=== PATIENT | male | born 1935 | race Caucasian/White ===

== ENCOUNTER 2019-07-28 11:19 | Inpatient (IN) | payer MEDICARE, OTHER ==
--- NOTE | 2019-07-28 13:24 | RADIOLOGY REPORT (SQ) ---
EXAM DESCRIPTION: CHEST SINGLE VIEW COMPLETED DATE/TIME: 07/28/2019 12:55 pm REASON FOR STUDY: unwitnessed fall, confusion COMPARISON: None. EXAM PARAMETERS: NUMBER OF VIEWS: One view. TECHNIQUE: Single frontal radiographic view of the chest acquired. RADIATION DOSE: NA LIMITATIONS: None. FINDINGS: LUNGS AND PLEURA: No opacities, masses or pneumothorax. No pleural effusion. MEDIASTINUM AND HILAR STRUCTURES: No masses. Contour normal. HEART AND VASCULAR STRUCTURES: Heart normal in size. Normal vasculature. BONES: No acute findings. HARDWARE: None in the chest. OTHER: No other significant finding. IMPRESSION: NO ACUTE RADIOGRAPHIC FINDING IN THE CHEST. TECHNICAL DOCUMENTATION: JOB ID: [id number] [employer]- All Rights Reserved Reading location - IP/workstation name: [email or web address]
[2019-07-28 13:31] LABS: AMORPHOUS SEDIMENT,URINE TRACE /HPF; APPEARANCE,URINE CLOUDY; BILIRUBIN,URINE NEGATIVE (NEGATIVE); COLOR,URINE AMBER; GLUCOSE, URINE 50 mg/dL (NEGATIVE); KETONES,URINE TRACE mg/dL (NEGATIVE); PROTEIN,URINE 100 mg/dL (NEGATIVE); URINE SPECIFIC GRAVITY 1.024
--- NOTE | 2019-07-28 13:53 | ER Document Report ---
Entered by JOSE COCHRAN SCRIBE 07/28/19 1219 Acting as scribe for:CONSTANTINE FERGUSON IV, MD ED General - General Chief Complaint: Altered Mental Status Stated Complaint: FALL Time Seen by Provider: 07/28/19 12:12 Primary Care Provider: MATT CORDOVA MD [ACTIVE STAFF] - Follow up as needed Mode of Arrival: Medic Information source: Patient Notes: This 84 year old male patient presents to the emergency department today for complaints of being found down on the floor by the just prior to arrival. states the last time she saw him was last night. Patient states that it "happened this morning" but he does not appear to be the best historian. Patient complains of left sided abdominal pain which the reported as chronic, stating that he was recently diagnosed with IBS. states the patient has been vomiting for the last two days. Patient has no complaints other than the abdominal pain. TRAVEL OUTSIDE OF THE [place] IN LAST 30 DAYS: No - Related Data Allergies/Adverse Reactions: tramadol Allergy (Verified 07/28/19 12:05) Past Medical History - General Information source: Patient - Social History Smoking Status: Unknown if Ever Smoked Cigarette use (# per day): No Frequency of alcohol use: None Drug Abuse: None Lives with: Family Family History: Reviewed & Not Pertinent Patient has suicidal ideation: No Patient has homicidal ideation: No Review of Systems - Review of Systems Constitutional: See HPI EENT: No symptoms reported Cardiovascular: No symptoms reported Respiratory: No symptoms reported Gastrointestinal: See HPI, Abdominal pain, Vomiting Genitourinary: No symptoms reported Male Genitourinary: No symptoms reported Musculoskeletal: No symptoms reported Skin: No symptoms reported Hematologic/Lymphatic: No symptoms reported Neurological/Psychological: No symptoms reported -: Yes All other systems reviewed and negative Physical Exam - Vital signs Vitals: Resp Pulse Ox 21 H 92 07/28/19 11:33 07/28/19 11:33 - Notes Notes: Physical Exam: General: Alert, appears age appropriate.. HEENT: Normocephalic. Atraumatic. PERRL. Extraocular movements intact. Oropharynx clear. Neck: Supple. Non-tender. Respiratory: No respiratory distress. Clear and equal breath sounds bilaterally. Cardiovascular: Regular rate and rhythm. Abdominal: Left lower quadrant abdominal tenderness with palpation. No distension. Normal Bowel Sounds. Back: No gross abnormalities. Extremities: Moves all four extremities. Upper extremities: Normal inspection. Normal ROM. Lower extremities: Normal inspection. No edema. Normal ROM. Neurological: Confused Psychological: Normal affect. Normal Mood. Skin: Warm. Dry. Normal color. Course - Vital Signs Vital signs: Temp Pulse Resp BP Pulse Ox 99.1 F 88 25 H 169/72 H 97 07/28/19 11:58 07/28/19 11:58 07/28/19 19:01 07/28/19 19:01 07/28/19 19:01 - Laboratory Result Diagrams: 07/28/19 18:27 07/28/19 17:30 Laboratory results interpreted by me: 07/28/19 07/28/19 07/28/19 12:47 13:15 13:35 WBC 24.2 H RBC 6.86 H Hgb 19.7 H Hct 59.8 H RDW 15.3 H Lymph % (Auto) 5.3 L Absolute Neuts (auto) 21.0 H Absolute Monos (auto) 1.9 H Seg Neutrophils % 86.5 H Seg Neuts % (Manual) Lymphocytes % (Manual) Abs Neuts (Manual) Sodium Carbon Dioxide BUN Creatinine Est GFR ( Amer) Est GFR (MDRD) Non-Af Glucose POC Glucose 138 H Calcium Total Bilirubin Direct Bilirubin Urine Protein 100 H Urine Glucose (UA) 50 H Urine Ketones TRACE H Urine Blood MODERATE H Urine Urobilinogen 2.0 H 07/28/19 07/28/19 07/28/19 13:35 17:30 18:27 WBC 23.4 H RBC 6.25 H Hgb 17.9 H Hct 54.8 H RDW 15.5 H Lymph % (Auto) Absolute Neuts (auto) Absolute Monos (auto) Seg Neutrophils % Seg Neuts % (Manual) 90 H Lymphocytes % (Manual) 4 L Abs Neuts (Manual) 21.1 H Sodium 146.4 H 145.6 H Carbon Dioxide 31 H BUN 53 H 55 H Creatinine 2.23 H 1.94 H Est GFR ( Amer) 34 L 40 L Est GFR (MDRD) Non-Af 28 L 33 L Glucose 140 H 131 H POC Glucose Calcium 10.8 H Total Bilirubin 1.4 H Direct Bilirubin 0.6 H 0.5 H Urine Protein Urine Glucose (UA) Urine Ketones Urine Blood Urine Urobilinogen - EKG Interpretation by Me Additional EKG results interpreted by me: 07/28/19 20:34 EKG done on 07/28/2019 1302 hours was interpreted by this MD. Findings: Sinus rhythm, heart rate 82, nonspecific ST segments. - Consults DR. NILSA SALDAÑA Time consulted: 18:50 Reason for consultation: 07/28/19 18:55 AMS, HIGH BLOOD PRESSURE Consulted provider: will come to ER - Transfer of Care Care transferred to following provider: DR. LLANOS AT 2044 HOURS Procedures - Lumbar Puncture Lumbar puncture Time completed: 19:59 Consent obtained: Yes Lumbar puncture pre-procedure: Sterile PPE donned, Betadine prep applied Patient position: Lying Anesthetic type: 1% Lidocaine mL's of anesthetic: 5 Number of attempts: 4 - unsuccessful Complications: No Discharge - Discharge Clinical Impression: Altered mental status Qualifiers: Altered mental status type: unspecified Qualified Code(s): R41.82 - Altered mental status, unspecified Condition: Fair Disposition: ADMITTED OBSERVATION Admitting Provider: Dimitri (Patient Insurance Clerk) Referrals: MATT CORDOVA MD [ACTIVE STAFF] - Follow up as needed I personally performed the services described in the documentation, reviewed and edited the documentation which was dictated to the scribe in my presence, and it accurately records my words and actions.
[2019-07-28 14:05] LABS: ABSOLUTE BASOPHILS # (AUTO) 0.1 10^3/uL (0.0-0.2); ABSOLUTE LYMPHOCYTES (AUTO) 1.3 10^3/uL (0.5-4.7); ABSOLUTE MONOCYTES (AUTO) 1.9 10^3/uL (0.1-1.4); BASOPHILS % (AUTO) 0.2 % (0-2); HEMOGLOBIN 19.7 g/dL (13.5-17.0); LYMPHOCYTES % (AUTO) 5.3 % (13-45); MEAN CORPUSCULAR HEMOGLOBIN 28.8 pg (27.0-33.4); MEAN CORPUSCULAR VOLUME 87 fl (80-97); PLATELET COUNT 207 10^3/uL (150-450); RED BLOOD COUNT 6.86 10^6/uL (4.35-5.55); RED CELL DISTRIBUTION WIDTH 15.3 % (11.5-14.0); SEGMENTED NEUTROPHILS % (AUTO) 86.5 % (42-78); TOTAL CELLS COUNTED % (AUTO) 100 %; WHITE BLOOD COUNT 24.2 10^3/uL (4.0-10.5)
[2019-07-28 14:06] LABS: HEMATOCRIT 59.8 % (37.9-51.0)
[2019-07-28] MEDS ORDERED: NORMAL SALINE 500 ML IV ONE (14:14)
[2019-07-28 14:30] LABS: ALBUMIN 4.5 g/dL (3.5-5.0); ALKALINE PHOSPHATASE 90 U/L (38-126); ANION GAP 13 (5-19); ASPARTATE AMINO TRANSFERASE 36 U/L (17-59); BILIRUBIN,DIRECT 0.6 mg/dL (0.0-0.4); BILIRUBIN,TOTAL 1.4 mg/dL (0.2-1.3); BLOOD UREA NITROGEN 53 mg/dL (7-20); CALCIUM 10.8 mg/dL (8.4-10.2); CARBON DIOXIDE 31 mmol/L (22-30); CHLORIDE 102 mmol/L (98-107); CREATINE KINASE 134 U/L (55-170); GLUCOSE 140 mg/dL (75-110); POTASSIUM 3.6 mmol/L (3.6-5.0); TOTAL PROTEIN 7.4 g/dL (6.3-8.2)
--- NOTE | 2019-07-28 16:31 | RADIOLOGY REPORT (SQ) ---
EXAM DESCRIPTION: CT ABD/PELVIS NO ORAL OR IV COMPLETED DATE/TIME: 07/28/2019 4:17 pm REASON FOR STUDY: llq abdominal pain COMPARISON: None. TECHNIQUE: CT scan of the abdomen and pelvis performed without intravenous or oral contrast. Images reviewed with lung, soft tissue, and bone windows. Reconstructed coronal and sagittal MPR images revi ewed. All images stored on PACS. All CT scanners at this facility use dose modulation, iterative reconstruction, and/or weight based d osing when appropriate to reduce radiation dose to as low as reasonably achievable (ALARA). [facility]: Dose Right [facility]: CareDose [facility]: Dose Right [facility]: Teradose 4D [facility]: [employer] RADIATION DOSE: CT Rad equipment meets quality standard of care and radiation dose reduction techniq ues were employed. CTDIvol: 17.0 mGy. DLP: 946 mGy-cm.mGy. LIMITATIONS: Positioning. FINDINGS: LOWER CHEST: Trace pleural effusions. Cardiomegaly. Right pericardial cyst. NON-CONTRASTED LIVER, SPLEEN, ADRENALS: Evaluation limited by lack of IV contrast. Old granulomatous disease. No identified significant masses. PANCREAS: No masses. No peripancreatic inflammatory changes. GALLBLADDER: Gallstones. No inflammatory changes to suggest cholecystitis. RIGHT KIDNEY AND URETER: No suspicious masses. Assessment limited by lack of IV contrast. No signif icant calcifications. No hydronephrosis or hydroureter. LEFT KIDNEY AND URETER: No suspicious masses. Assessment limited by lack of IV contrast. 3 mm stone just superior to the ureterovesical junction. Mild hydronephrosis and perinephric stranding. AORTA AND RETROPERITONEUM: No aneurysm. No retroperitoneal masses or adenopathy. BOWEL AND PERITONEAL CAVITY: Sigmoid diverticulosis. No obvious masses or inflammatory changes. No f ree fluid. APPENDIX: Not visualized. PELVIS, BLADDER, AND ABDOMINAL WALL:No abnormal masses. No free fluid. Bladder normal. BONES: Nothing acute. OTHER: No other significant finding. IMPRESSION: 3 mm stone distal left ureter. Mild hydronephrosis. COMMENT: Quality ID # [id number]: Final reports with documentation of one or more dose reduction techniques (e.g., Automated exposure control, adjustment of the mA and/or kV according to patient size, use of iterative reconstruction technique) TECHNICAL DOCUMENTATION: JOB ID: [id number]- All Rights Reserved Reading location - IP[facility]workstation [email or web address]
--- NOTE | 2019-07-28 16:34 | RADIOLOGY REPORT (SQ) ---
EXAM DESCRIPTION: CT HEAD WITHOUT COMPLETED DATE/TIME: 07/28/2019 4:17 pm REASON FOR STUDY: unwitnessed fall, confusion COMPARISON: None. TECHNIQUE: Axial images acquired through the brain without intravenous contrast. Images reviewed wi th bone, brain and subdural windows. Additional sagittal and coronal reconstructions were generated. Images stored on PACS. All CT scanners at this facility use dose modulation, iterative reconstruction, and/or weight based d osing when appropriate to reduce radiation dose to as low as reasonably achievable (ALARA). [facility]: Dose Right [facility]: CareDose [facility]: Dose Right [facility]: Teradose 4D [facility]: Smart [employer] RADIATION DOSE: CT Rad equipment meets quality standard of care and radiation dose reduction techniq ues were employed. CTDIvol: 53.2 mGy. DLP: 1044 mGy-cm.mGy. LIMITATIONS: None. FINDINGS: VENTRICLES: Prominent. CEREBRUM: No masses. No hemorrhage. No midline shift. Areas of low density in the white matter mos t likely due to chronic micro-vascular ischemic change. No evidence for acute infarction. CEREBELLUM: No masses. No hemorrhage. No alteration of density. No evidence for acute infarction. EXTRAAXIAL SPACES: Age-related involutional change. No fluid collections. No masses. ORBITS AND GLOBE: No intra- or extraconal masses. Normal contour of globe without masses. CALVARIUM: No fracture. PARANASAL SINUSES: No fluid or mucosal thickening. SOFT TISSUES: No mass or hematoma. OTHER: No other significant finding. IMPRESSION: CHRONIC CHANGES OF ATROPHY AND MICROVASCULAR ISCHEMIA. NO ACUTE PROCESS. EVIDENCE OF ACUTE STROKE: NO. TECHNICAL DOCUMENTATION: JOB ID: [id number] Quality ID # [id number]: Final reports with documentation of one or more dose reduction techniques (e.g., Au tomated exposure control, adjustment of the mA and/or kV according to patient size, use of iterative reconstruction technique) 2010 [employer]- All Rights Reserved Reading location - IP/workstation name: [email or web address]
[2019-07-28] MEDS ORDERED: LABETALOL HCL INJ 20 MG/4 ML DISP.SYRIN IV ONE (17:12)
[2019-07-28] MEDS ORDERED: NORMAL SALINE 1000 ML 1,000 ML IV ONE (17:28)
[2019-07-28 18:36] LABS: ALKALINE PHOSPHATASE 77 U/L (38-126); ANION GAP 15 (5-19); ASPARTATE AMINO TRANSFERASE 32 U/L (17-59); BILIRUBIN,DIRECT 0.5 mg/dL (0.0-0.4); BILIRUBIN,TOTAL 1.2 mg/dL (0.2-1.3); BLOOD UREA NITROGEN 55 mg/dL (7-20); CALCIUM 10.2 mg/dL (8.4-10.2); CARBON DIOXIDE 27 mmol/L (22-30); CHLORIDE 104 mmol/L (98-107); GLUCOSE 131 mg/dL (75-110); POTASSIUM 4.2 mmol/L (3.6-5.0); TOTAL PROTEIN 6.5 g/dL (6.3-8.2)
[2019-07-28 18:38] LABS: HEMATOCRIT 54.8 % (37.9-51.0); HEMOGLOBIN 17.9 g/dL (13.5-17.0); MEAN CORPUSCULAR HEMOGLOBIN 28.7 pg (27.0-33.4); MEAN CORPUSCULAR HGB CONC 32.7 g/dL (32.0-36.0); MEAN CORPUSCULAR VOLUME 88 fl (80-97); PLATELET COUNT 158 10^3/uL (150-450); RED BLOOD COUNT 6.25 10^6/uL (4.35-5.55); RED CELL DISTRIBUTION WIDTH 15.5 % (11.5-14.0); WHITE BLOOD COUNT 23.4 10^3/uL (4.0-10.5)
[2019-07-28] MEDS ORDERED: VANCOMYCIN HCL INJ 1000 MG VIAL IV ONE (18:50)
[2019-07-28] MEDS ORDERED: CEFTRIAXONE INJ 1000 MG VIAL IV ONE (18:53)
[2019-07-28] MEDS ORDERED: NAFCILLIN SODIUM INJ 2 GM VIAL IV ONE (18:53)
[2019-07-28] MEDS ORDERED: ACYCLOVIR SODIUM INJ/PF 500 MG/10 ML SDV IV ONE (18:54)
[2019-07-28] MEDS ORDERED: LIDOCAINE 1% INJ-PF (10 MG/ML) 30 ML SDV INJ ONE (18:57)
[2019-07-28 18:58] LABS: ABSOLUTE LYMPHOCYTES# (MANUAL) 0.9 10^3/uL (0.5-4.7); ABSOLUTE MONOCYTES # (MANUAL) 1.4 10^3/uL (0.1-1.4); BASOPHILS % (MANUAL) 0 % (0-2); EOSINOPHILS % (MANUAL) 0 % (0-6); LYMPHOCYTES % (MANUAL) 4 % (13-45); MONOCYTES % (MANUAL) 6 % (3-13); SEGMENTED NEUTROPHILS % (MAN) 90 % (42-78); TOTAL CELLS COUNTED 100
[2019-07-28 18:59] LABS: ANISOCYTOSIS 1+; PLATELET COMMENT ADEQUATE; TEAR DROP CELLS SLIGHT
[2019-07-28] MEDS ORDERED: MIDAZOLAM 2 MG/2 ML INJ IV ONE (19:25)
[2019-07-28] MEDS ORDERED: MIDAZOLAM HCL INJ 5 MG/1 ML VIAL NASL ONE (19:28)
[2019-07-28] MEDS ORDERED: NICARDIPINE HCL RTU, ISO-OS 20 MG/200 ML RTUINJ IV PRN ×3 (20:28→22:33)
[2019-07-28] MEDS ORDERED: NAFCILLIN SODIUM 2 GM in DEXTROSE 5%-WATER 100 ML IV ONE (21:00)
[2019-07-28] MEDS ORDERED: 1/2 NORMAL SALINE 1,000 ML IV PRN (22:03)
[2019-07-29] MEDS ORDERED: NICARDIPINE HCL RTU, ISO-OS 20 MG/200 ML RTUINJ IV PRN (00:53)
[2019-07-29 03:30] LABS: HEMOGLOBIN 18.9 g/dL (13.5-17.0); MEAN CORPUSCULAR HEMOGLOBIN 28.9 pg (27.0-33.4); MEAN CORPUSCULAR HGB CONC 33.4 g/dL (32.0-36.0); MEAN CORPUSCULAR VOLUME 87 fl (80-97); RED BLOOD COUNT 6.55 10^6/uL (4.35-5.55); RED CELL DISTRIBUTION WIDTH 15.2 % (11.5-14.0); WHITE BLOOD COUNT 24.5 10^3/uL (4.0-10.5)
[2019-07-29 03:46] LABS: ALBUMIN 3.7 g/dL (3.5-5.0); ALKALINE PHOSPHATASE 77 U/L (38-126); ANION GAP 13 (5-19); ASPARTATE AMINO TRANSFERASE 27 U/L (17-59); BILIRUBIN,DIRECT 0.4 mg/dL (0.0-0.4); BILIRUBIN,TOTAL 1.1 mg/dL (0.2-1.3); BLOOD UREA NITROGEN 56 mg/dL (7-20); CALCIUM 10.2 mg/dL (8.4-10.2); CARBON DIOXIDE 28 mmol/L (22-30); CHLORIDE 105 mmol/L (98-107); GLUCOSE 202 mg/dL (75-110); HEMATOCRIT 56.7 % (37.9-51.0); POTASSIUM 3.5 mmol/L (3.6-5.0); TOTAL PROTEIN 6.4 g/dL (6.3-8.2)
[2019-07-29 03:47] LABS: ABSOLUTE LYMPHOCYTES# (MANUAL) 1.7 10^3/uL (0.5-4.7); ABSOLUTE MONOCYTES # (MANUAL) 2.2 10^3/uL (0.1-1.4); BAND NEUTROPHILS % (MANUAL) 5 % (3-5); BASOPHILS % (MANUAL) 0 % (0-2); EOSINOPHILS % (MANUAL) 0 % (0-6); LYMPHOCYTES % (MANUAL) 7 % (13-45); MONOCYTES % (MANUAL) 9 % (3-13); SEGMENTED NEUTROPHILS % (MAN) 79 % (42-78); TOTAL CELLS COUNTED 100
[2019-07-29 03:49] LABS: ANISOCYTOSIS 1+; PLATELET COMMENT ADEQUATE; PLATELET COUNT 167 10^3/uL (150-450); POLYCHROMASIA 1+
[2019-07-29 04:03] LABS: FREE T3 3.25 pg/mL (2.77-5.27); FREE T4 (FREE THYROXINE) 2.51 ng/dL (0.78-2.19)
[2019-07-29 04:20] LABS: THYROID STIMULATING HORMONE 0.25 uIU/mL (0.47-4.68)
[2019-07-29] MEDS: HEPARIN SOD (PORCINE) 5,000 UNIT/ML 1 ML VIAL SUBCUT SCH ×3 (05:42→21:34)
[2019-07-29] MEDS: NICARDIPINE HCL RTU, ISO-OS 20 MG/200 ML RTUINJ IV PRN ×3 (05:42→11:45)
--- NOTE | 2019-07-29 06:26 | CRITICAL CARE ADMISSION REPORT ---
<OFELIA POZO - Last Filed: 07/29/19 06:25> HPI Date:: 07/28/19 Time:: 21:15 Reason for ICU Reason:: Hypertensive Encephalopathy with hemodynamic instability HPI: Mr. Dominique is an 84-year-old male with a past medical history of hypertension, CAD status post 4 coronary stents in the past, CKD, and optic nerve stroke in 2001 who presented to [facility] with altered mental status and hypertensive emergency. Mrs. Dominique found her on the floor next to his recliner after last seeing him normal at approximately 11 PM last night. His ambulation and strength has progressively gotten worse though is not acute, for which he could not make it to the bedroom and decided to sleep in the recliner overnight. Patient's denies Mr. Dominique having dementia but does report he has some recent mild memory difficulty. Patient has reportedly had intermittent nausea and vomiting the past 2 days for which his describes it as brown, but denies a coffee-ground appearance in the emesis. He is also had generalized abdominal pain that is not acute for which he does not guard his abdomen, have rebound tenderness, or display signs of peritonitis. CT head reveals no acute stroke, though there is chronic microvascular ischemia and atrophy. Chest x-ray is without an acute intrapulmonary process. CT abdomen/pelvis demonstrates no acute surgical abdomen, though there is evidence of cholelithiasis without cholecystitis, diverticulosis, enlarged prostate, atherosclerosis of the aorta and iliac arteries, a distal left ureteral calculus with mild hydronephrosis as well as an incidental finding of a pericardial cyst. Mr. Dominique will be admitted to ICU for serial neuro exams and hemodynamic instability requiring a Cardene infusion to control his blood pressure. History obtained from:: Mrs. Dominique, patient, medical record - Diagnosis/Plan (1) Hypertensive encephalopathy Is this a current diagnosis for this admission?: Yes Plan: Presume encephalopathy due to HTN. AMS, nausea, and vomiting can all be caused by severe HTN. Serial neurological exams. BP control by reducing to no more than 25% of MAP in the first 24 hrs. Goal MAP 95-100 today. Will use Cardene infusion to augment. Resume home anti-HTN meds tomorrow and anticipate having to increase dosing with possibility of adding an another agent. Telemetry, q15min blood pressure readings until BP control established, then q30min. If continued BP control does not improve mental status, will pursue other etiologies including addition of empiric antibiotics for possible encephalitis. High risk to perform a lumbar puncture at this time given his last dose of Pl avix was on 07/27/19 per his . (2) Headache Qualifiers: Headache type: unspecified Headache chronicity pattern: chronic headache Intractability: intractable Qualified Code(s): R51 - Headache Is this a current diagnosis for this admission?: Yes Plan: Improving with decreasing BP per patient report. Suspect due to HTN and will continue to monitor. May need to add Tylenol as well. (3) Pericardial cyst Is this a current diagnosis for this admission?: Yes Plan: Incidental finding. (4) Hx of coronary artery disease Is this a current diagnosis for this admission?: Yes Plan: History of 4 coronary stents which are >1 year old. Resume home Plavix once medically cleared. Telemetry. Control BP to decrease myocardial demand and risk of remodeling. 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 (6) Diverticulosis Is this a current diagnosis for this admission?: Yes Plan: Provide patient education prior to discharge. (7) Cholelithiasis without cholecystitis Is this a current diagnosis for this admission?: Yes Plan: Informed patient and his of the finding. (8) Abdominal tenderness without rebound tenderness Qualifiers: Abdominal location: generalized Qualified Code(s): R10.817 - Generalized abdominal tenderness Is this a current diagnosis for this admission?: Yes Plan: Patient and confirm this pain is not acute. Lipase normal. CT demonstrates diverticulosis, cholelithiasis, as well as left distal ureteral calculus. Last BM 3 days ago, patient denies feeling constipated. Initiate Starr-Colace when patient displays sustained eye-opening and low risk for aspiration. (9) Acute kidney injury superimposed on CKD Is this a current diagnosis for this admission?: Yes Plan: Repeat BMP in the a.m. and monitor for worsening renal function (currently trending in the correct direction). Hydration with IVF while npo. Avoid NSAID's and nephrotoxic meds as able. (10) Ureteral calculus, left Plan: Consider consultation with urology tomorrow. (11) Hydronephrosis Qualifiers: Hydronephrosis type: with ureteropelvic junction obstruction Qualified Code(s): Q62.11 - Congenital occlusion of ureteropelvic junction Is this a current diagnosis for this admission?: Yes Plan: Repeat BMP in the a.m. and monitor for worsening renal function (currently trending in the correct direction). Consult urology tomorrow as patient is in no state to have an OR procedure today given his hypertensive emergency at the moment. (12) BPH (benign prostatic hyperplasia) Qualifiers: Lower urinary tract symptom detail: unspecified Is this a current diagnosis for this admission?: Yes Plan: Resume home Flomax and Proscar when more alert and certain patient swallowing effectively. (13) Hyperglycemia Is this a current diagnosis for this admission?: Yes Plan: Start Accu-Cheks and insulin sliding scale coverage every 6 hours to keep glucose less than 180. Check hemoglobin A1c (14) Leukocytosis Qualifiers: Leukocytosis type: unspecified Qualified Code(s): D72.829 - Elevated white blood cell count, unspecified Is this a current diagnosis for this admission?: Yes Plan: Patient appears to be hemoconcentrated on lab work. Will discontinue all further antibiotics at this time and observe fever curve/WBC closely. If patient's mental status does not improve with better blood pressure control, will resume empiric antibiotic coverage also covering for bacterial/viral encephalitis. 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 Per -snoring/apnea periods. 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 Neurological Medical History: Denies: Migraine, Multiple Sclerosis, Seizures Endocrine Medical History: Denies: None, Hyperthyroidism, Hypothyroidism Renal/ Medical History: Reports: Chronic Kidney Disease, Nephrolithiasis, Other - Remote Hx renal calculi; has BPH Malignancy Medical History: Reports: None GI Medical History: Denies: Cirrhosis, Crohn's Disease, Diverticulitis, Hepatitis, Ulcerative Colitis Musculoskeltal Medical History: Reports: None Skin Medical History: Denies: Eczema, Psoriasis Psychiatric Medical History: Denies: Alcohol Dependency, Bipolar Disorder, Dementia, General Anxiety Disorder, Schizoaffective Disorder Traumatic Medical History: Denies: None Hematology: Reports: Bleeding Tendencies - for which [employer] changed Plavix to every other day & dc'd ASA Denies: Sickle Cell Disease, Neutropenia Infectious Medical History: Denies: None Past Surgical History Past Surgical History: Reports: Appendectomy, Coronary Stent - x4, Knee Replacement, Other - R knee replacement Social/Family History - Social History Lives with: Spouse/Significant other Smoking Status: Former Smoker - "Quit many many years ago" Last Time Smoked: pt and uncertain Frequency of Alcohol Use: Rare Hx Recreational Drug Use: No Hx Prescription Drug Abuse: No - Family History Family History: Hypertension, Malignancy - Medication/Allergies Home Medications: Atenolol [Tenormin 50 mg Tablet] 50 mg PO DAILY 07/28/19 Benazepril HCl [Lotensin] 40 mg PO DAILY 07/28/19 Celecoxib [Celebrex 200 mg Capsule] 200 mg PO DAILY 07/28/19 Clopidogrel Bisulfate [Plavix 75 mg Tablet] 75 mg PO Q2DAYS 07/28/19 Finasteride [Proscar 5 mg Tablet] 5 mg PO DAILY 07/28/19 Krill/[place]-3/Dha/Epa/Lipids [[place]-3 Krill Oil 500 mg Sfgl] 1 cap PO Q2DAYS 07/28/19 Metoprolol Succinate [Toprol Xl 25 mg Tab.sr] 25 mg PO DAILY 07/28/19 Multivitamin [Daily Multiple Vitamin] 1 tab PO DAILY 07/28/19 Nitroglycerin [Nitrostat 0.4 mg (1/150 Gr) Tabs 25/Bottle] 0.4 mg SL Q5MP PRN 07/28/19 Pantoprazole Sodium [Protonix [address] Tablet] 40 mg PO DAILY 07/28/19 Rosuvastatin Calcium [Crestor 10 mg Tablet] 10 mg PO QHS 07/28/19 Tamsulosin HCl [Flomax 0.4 mg Cap.sr] 0.4 mg PO DAILY 07/28/19 Ubidecarenone [Coq-10] 300 mg PO DAILY 07/28/19 Allergies/Adverse Reactions: tramadol Allergy (Verified 07/28/19 12:05) Review of Systems ROS unobtainable: Other - limited due to mental status, ROS answered is per report Constitutional: PRESENT: headache(s) - pt reports headache for some time, weakness - not acute. ABSENT: anorexia, chills, fever(s), night sweats Eyes: ABSENT: visual disturbances Ears: ABSENT: hearing changes Nose, Mouth, and Throat: ABSENT: mouth pain, sore throat, vertigo Cardiovascular: ABSENT: chest pain, dyspnea on exertion, edema, palpitations Respiratory: ABSENT: cough, dyspnea, hemoptysis, sputum Gastrointestinal: PRESENT: as per HPI. ABSENT: coffee ground emesis, dysphagia, hematemesis, hematochezia, melena Genitourinary: ABSENT: difficulty urinating, dysuria, hematuria, nocturia Musculoskeletal: PRESENT: back pain - chronic, not acute; nerve stimulator in place but hasn't been operational for 6 months. Was going to have removed until discovered the leads aren't removed, so has been afraid to do so.. ABSENT: j oint swelling Integumentary: PRESENT: wounds - "wound to his back side" per . ABSENT: diaphoresis, erythema, lesions, pruritus, rash Neurological: PRESENT: confusion, weakness - at baseline, not increased over past several days, other - assists with ambulation as well as pt using computer chair that he favors over his walker. Feels he will fall using his walker and will slide away from him.. ABSENT: convulsions, numbness Psychiatric: ABSENT: anxiety, hallucinations, homidical ideation, suicidal ideation Endocrine: ABSENT: cold intolerance, heat intolerance, polydipsia, polyphagia, p olyuria Hematologic/Lymphatic: PRESENT: easy bruising - since on Plavix. ABSENT: lymphadenopathy Allergic/Immunologic: ABSENT: seasonal rhinorrhea Physical Exam Vital Signs: Temp Pulse Resp BP Pulse Ox 99.1 F 88 19 167/94 H 96 07/28/19 11:58 07/28/19 20:30 07/28/19 22:01 07/28/19 22:00 07/28/19 22:01 Intake & Output 07/27/19 07/28/19 07/29/19 06:59 06:59 06:59 Intake Total 500 Balance 500 Weight 86.183 kg Weight/Height Weight 86.183 kg Height 5 ft 9 in General appearance: PRESENT: cooperative - but very drowsy and disoriented; improved wakefulness when BP lower, hard of hearing, well-nourished. ABSENT: no acute distress Head exam: PRESENT: atraumatic, normocephalic Eye exam: PRESENT: conjunctiva pink, EOMI, PERRLA. ABSENT: periorbital swelling, scleral icterus Ear exam: PRESENT: normal external ear exam. ABSENT: bleeding, drainage Mouth exam: PRESENT: moist, neck supple, tongue midline Teeth exam: PRESENT: other - missing many teeth Throat exam: PRESENT: post pharyngeal erythema - a little erythematous but no other associated signs/symptoms, other - denies throat pain/edema/painful swallowing Neck exam: PRESENT: other - no nuchal rigidity. ABSENT: JVD, lymphadenopathy, tenderness, tracheal deviation Respiratory exam: PRESENT: clear to auscultation major, unlabored. ABSENT: accessory muscle use, chest wall tenderness, tachypnea Cardiovascular exam: PRESENT: RRR, +S1, +S2. ABSENT: diastolic murmur, gallop, rubs, systolic murmur Pulses: PRESENT: normal radial pulses, other - Right: 2+ DP, signal PT Left: signal DP, 2+ PT Vascular exam: PRESENT: normal capillary refill, other - Appears to have PAD with BLE hyperpigmentation/hair loss. May have claudication pain with ambulation but difficult to extrapolate from pt during ROS. GI/Abdominal exam: PRESENT: normal bowel sounds, soft, tenderness. ABSENT: distended, firm, guarding, hernia, mass, organolmegaly, rebound, rigid Rectal exam: PRESENT: deferred Gentrourinary exam: PRESENT: other - incontinent in ED (not baseline). ABSENT: erythema, lacerations, lesions, scrotal swelling, testicular tenderness, urethral discharge, indwelling catheter Extremities exam: PRESENT: full ROM. ABSENT: calf tenderness, clubbing, joint swelling, pedal edema, tenderness Musculoskeletal exam: PRESENT: ambulatory - but with reported difficulty at home as well as weakness (not acute), normal inspection. ABSENT: deformity, te nderness Neurological exam: PRESENT: oriented to person, other - very drowsy when severely hypertensive. ABSENT: oriented to place, oriented to time, oriented to situation Psychiatric exam: ABSENT: agitated, anxious, homicidal ideation, suicidal diana ation Skin exam: PRESENT: abrasion - Multiple abrasions to left hand, right tibial region, R toes, dry, normal color, other - wound to left midline gluteal cleft, non-draining or open; scabbed. ABSENT: jaundice Tubes/Lines: PRESENT: Other - none Laboratory/Radiographs Laboratory Results: 07/28/19 18:27 07/28/19 17:30 07/28/19 07/28/19 07/28/19 13:15 13:35 13:35 WBC 24.2 H RBC 6.86 H Hgb 19.7 H Hct 59.8 H MCV 87 MCH 28.8 MCHC 33.0 RDW 15.3 H Plt Count 207 Seg Neutrophils % 86.5 H Sodium 146.4 H Potassium 3.6 Chloride 102 Carbon Dioxide 31 H Anion Gap 13 BUN 53 H Creatinine 2.23 H Est GFR ( Amer) 34 L Glucose 140 H Calcium 10.8 H Total Bilirubin 1.4 H AST 36 Alkaline Phosphatase 90 Total Protein 7.4 Albumin 4.5 Lipase 56.0 Urine Color SHARYN Urine Appearance CLOUDY Urine pH 5.0 Ur Specific Davis 1.024 Urine Protein 100 H Urine Glucose (UA) 50 H Urine Ketones TRACE H Urine Blood MODERATE H Urine RBC (Auto) 44 07/28/19 07/28/19 17:30 18:27 WBC 23.4 H RBC 6.25 H Hgb 17.9 H Hct 54.8 H MCV 88 MCH 28.7 MCHC 32.7 RDW 15.5 H Plt Count 158 Seg Neutrophils % Not Reportable Sodium 145.6 H Potassium 4.2 Chloride 104 Carbon Dioxide 27 Anion Gap 15 BUN 55 H Creatinine 1.94 H Est GFR ( Amer) 40 L Glucose 131 H Calcium 10.2 Total Bilirubin 1.2 AST 32 Alkaline Phosphatase 77 Total Protein 6.5 Albumin 4.0 Lipase Urine Color Urine Appearance Urine pH Ur Specific Davis Urine Protein Urine Glucose (UA) Urine Ketones Urine Blood Urine RBC (Auto) 07/28/19 07/28/19 07/28/19 13:35 13:35 17:30 Creatine Kinase 134 Troponin I 0.050 0.052 Impressions: Abdomen/Pelvis CT 07/28/19 00:00 IMPRESSION: 3 mm stone distal left ureter. Mild hydronephrosis. Chest X-Ray 07/28/19 12:19 IMPRESSION: NO ACUTE RADIOGRAPHIC FINDING IN THE CHEST. Head CT 07/28/19 12:19 IMPRESSION: CHRONIC CHANGES OF ATROPHY AND MICROVASCULAR ISCHEMIA. NO ACUTE PROCESS. EVIDENCE OF ACUTE STROKE: NO. All labs, radiographs, diagnostic studies and EKGs were personally reviewed: Yes Critical Time Critical Time (minutes): 70 -: The care of a critically ill patient is dynamic. This note represents a static moment in the admission process. Orders and treatments may be given simultaneously and urgently, and time is not sales representative uniforms of the treatment process. This patient requires Critical Care secondary to life threatening organ or limb dysfunction. Without Critical Care services, the patient is at risk for increased mortality and morbidity. <NILSA SALDAÑA - Last Filed: 07/29/19 18:50> HPI - Diagnosis/Plan (6) Leukocytosis Qualifiers: Leukocytosis type: unspecified Qualified Code(s): D72.829 - Elevated white blood cell count, unspecified - . Plan Summary: I personally evaluated the patient and examined him in the emergency room. Plan was discussed with LORETTA Pozo including his findings and treatment. We withheld attempting LP secondary to the concurrent use of Plavix. Patient does not appear to have meningitis nor encephalitis however the possibility is still present to consider. Will admit to ICU and follow his neurological course accordingly. He may have PRES and may require MRI Physical Exam Vital Signs: Temp Pulse Resp BP Pulse Ox 97.7 F 84 18 191/87 H 95 07/29/19 16:00 07/29/19 18:00 07/29/19 18:35 07/29/19 18:35 07/29/19 18:35 Intake & Output 07/28/19 07/29/19 07/30/19 06:59 06:59 06:59 Intake Total 1548 298 Output Total 460 Balance 1548 -162 Weight 82.9 kg Weight/Height Weight 82.9 kg Height 5 ft 9 in Laboratory/Radiographs Laboratory Results: 07/29/19 03:06 07/29/19 12:13 07/29/19 07/29/19 07/29/19 03:06 03:06 03:06 WBC RBC Hgb Hct MCV MCH MCHC RDW Plt Count Seg Neutrophils % Carbonic Acid HCO3/H2CO3 Ratio ABG pH ABG pCO2 ABG pO2 ABG HCO3 ABG O2 Saturation ABG Base Excess FiO2 Sodium 145.6 H Potassium 3.5 L Chloride 105 Carbon Dioxide 28 Anion Gap 13 BUN 56 H Creatinine 2.02 H Est GFR ( Amer) 38 L Glucose 202 H Lactic Acid Calcium 10.2 Phosphorus 4.0 Magnesium 2.3 Total Bilirubin 1.1 AST 27 Alkaline Phosphatase 77 Ammonia < 8.7 L C-Reactive Protein Total Protein 6.4 Albumin 3.7 TSH 0.25 L Free T4 2.51 H Free T3 pg/mL 3.25 07/29/19 07/29/19 07/29/19 03:06 03:06 08:44 WBC 24.5 H RBC 6.55 H Hgb 18.9 H Hct 56.7 H MCV 87 MCH 28.9 MCHC 33.4 RDW 15.2 H Plt Count 167 Seg Neutrophils % Not Reportable Carbonic Acid HCO3/H2CO3 Ratio ABG pH ABG pCO2 ABG pO2 ABG HCO3 ABG O2 Saturation ABG Base Excess FiO2 Sodium Potassium Chloride Carbon Dioxide Anion Gap BUN Creatinine Est GFR ( Amer) Glucose Lactic Acid 1.8 Calcium Phosphorus Magnesium Total Bilirubin AST Alkaline Phosphatase Ammonia C-Reactive Protein 44.1 H Total Protein Albumin TSH Free T4 Free T3 pg/mL 07/29/19 07/29/19 12:13 13:50 WBC RBC Hgb Hct MCV MCH MCHC RDW Plt Count Seg Neutrophils % Carbonic Acid 1.28 HCO3/H2CO3 Ratio 20:1 ABG pH 7.41 ABG pCO2 42.4 ABG pO2 76.3 L ABG HCO3 26.4 H ABG O2 Saturation 95.4 ABG Base Excess 1.5 FiO2 ROOM AIR Sodium 144.6 Potassium 3.3 L Chloride 102 Carbon Dioxide 29 Anion Gap 14 BUN 62 H Creatinine 2.16 H Est GFR ( Amer) 36 L Glucose 148 H Lactic Acid Calcium 10.3 H Phosphorus Magnesium Total Bilirubin AST Alkaline Phosphatase Ammonia C-Reactive Protein Total Protein Albumin TSH Free T4 Free T3 pg/mL 07/28/19 07/28/19 07/28/19 13:35 13:35 17:30 Creatine Kinase 134 Troponin I 0.050 0.052 07/29/19 03:06 Creatine Kinase Troponin I Cancelled Impressions: Abdomen/Pelvis CT 07/28/19 00:00 IMPRESSION: 3 mm stone distal left ureter. Mild hydronephrosis. Chest X-Ray 07/28/19 12:19 IMPRESSION: NO ACUTE RADIOGRAPHIC FINDING IN THE CHEST. Head CT 07/28/19 12:19 IMPRESSION: CHRONIC CHANGES OF ATROPHY AND MICROVASCULAR ISCHEMIA. NO ACUTE PROCESS. EVIDENCE OF ACUTE STROKE: NO. Critical Time -: The care of a critically ill patient is dynamic. This note represents a static moment in the admission process. Orders and treatments may be given simultaneously and urgently, and time is not sales representative uniforms of the treatment process. This patient requires Critical Care secondary to life threatening organ or limb dysfunction. Without Critical Care services, the patient is at risk for increased mortality and morbidity.
[2019-07-29] MEDS ORDERED: PANTOPRAZOLE SODIUM 40 MG VIAL IV SCH (10:00)
[2019-07-29] MEDS: WATER FOR INJECTION,STERILE 1,000 ML with SODIUM CHLORIDE 38.5 MEQ IV PRN ×4 (12:48→19:18)
[2019-07-29 14:11] LABS: ARTERIAL BLOOD BASE EXCESS 1.5 mmol/L; ARTERIAL BLOOD H2CO3 1.28 mmol/L (1.05-1.35); ARTERIAL BLOOD HCO3 26.4 mmol/L (20-24); ARTERIAL BLOOD O2 SATURATION 95.4 % (94-98); ARTERIAL BLOOD PCO2 42.4 mmHg (35-45); ARTERIAL BLOOD PH 7.41 (7.35-7.45); ARTERIAL BLOOD PO2 76.3 mmHg (80-100); ARTERIAL BLOOD TOTAL CO2 27.7 mmol/L (23-27)
[2019-07-29 14:13] LABS: ARTERIAL BLOOD FIO2 ROOM AIR
--- NOTE | 2019-07-29 14:19 | PDOC CRITICAL CARE PROG REPORT ---
General Date:: 07/29/19 ICU Day:: 1 Hospital Day:: 1 Medical Power of Adoption Worker: Events in the past 12 to 24 Hours:: 07.29.19: Patient's mental status continues to wax and wane. We have been unable to perform LP secondary to patient's anatomy and the concurrent use of Plavix which would be contraindicated. Patient is answering questions but is confused. His Cardene drip has been weaned off. 07.28.19: Mr. Dominique is an 84-year-old male with a past medical history of hypertension, CAD status post 4 coronary stents in the past, CKD, and optic nerve stroke in 2001 who presented to [facility] with altered mental status and hy pertensive emergency. Mrs. Dominique found her on the floor next to his recliner after last seeing him normal at approximately 11 PM last night. His ambulation and strength has progressively gotten worse though is not acute, for which he could not make it to the bedroom and decided to sleep in the recliner overnight. Patient's denies Mr. Dominique having dementia but does report he has some recent mild memory difficulty. Patient has reportedly had intermittent nausea and vomiting the past 2 days for which his describes it as brown, but denies a coffee-ground appearance in the emesis. He is also had generalized abdominal pain that is not acute for which he does not guard his abdomen, have rebound tenderness, or display signs of peritonitis. CT head reveals no acute stroke, though there is chronic microvascular ischemia and atrophy. Chest x-ray is without an acute intrapulmonary process. CT abdomen/pelvis demonstrates no acute surgical abdomen, though there is evidence of cholelithiasis without cholecystitis, diverticulosis, enlarged prostate, atherosclerosis of the aorta and iliac arteries, a distal left ureteral calculus with mild hydronephrosis as well as an incidental finding of a pericardial cyst. Mr. Dominique will be admitted to ICU for serial neuro exams and hemodynamic instability requiring a Cardene infusion to control his blood pressure. Review of systems relevant to events:: states that the patient's condition has been declining over the past few months. He has become more weak. No active seizures seen. Noted active sleep apnea observed in ICU with desaturation. Patient started on CPAP. Reason for ICU Addmission:: Hypertensive Encephalopathy with hemodynamic instability - Medications: Medications reviewed and adjusted accordingly: Yes Vasopressors:: Cardene weaned to off Sedation:: None Physical Exam Vital Signs: Temp Pulse Resp BP Pulse Ox 97.9 F 90 12 146/68 H 91 L 07/29/19 12:00 07/29/19 12:00 07/29/19 12:29 07/29/19 12:29 07/29/19 12:29 Intake & Output 07/28/19 07/29/19 07/30/19 06:59 06:59 06:59 Intake Total 1548 200 Output Total 0 Balance 1548 200 Weight 82.9 kg Weight/Height Weight 82.9 kg Height 5 ft 9 in General appearance: PRESENT: no acute distress, obese, well-developed, well- nourished Exam: Elderly nontoxic chronically and critically ill 84-year-old male no active distress he responds and opens his eyes to voice intermittently follows commands Head exam: PRESENT: atraumatic, normocephalic Eye exam: PRESENT: conjunctiva pink, PERRLA. ABSENT: conjunctival injection, nystagmus, scleral icterus Mouth exam: PRESENT: dry mucosa, neck supple Teeth exam: PRESENT: edentulous Neck exam: ABSENT: carotid bruit, full ROM, JVD, lymphadenopathy, meningismus, thyromegaly, tracheal deviation Respiratory exam: PRESENT: clear to auscultation major. ABSENT: rales, rhonchi, wheezes Cardiovascular exam: PRESENT: RRR. ABSENT: diastolic murmur, rubs, systolic murmur Pulses: ABSENT: normal dorsalis pedis pul GI/Abdominal exam: PRESENT: normal bowel sounds, soft. ABSENT: ascites, distended, guarding, mass, organolmegaly, rebound, tenderness Rectal exam: PRESENT: deferred Gentrourinary exam: PRESENT: other - Condom catheter Extremities exam: ABSENT: pedal edema, tenderness Musculoskeletal exam: ABSENT: deformity, dislocation Neurological exam: PRESENT: altered, oriented to person - Patient has slight right facial droop. Difficult to determine whether his difficulty hearing is contributing to incomplete command following. Right arm appears weaker however moves spontaneously. Right leg appears weak as well. Is phonating well does not appear to have any dysphasia. Skis are bilaterally downgoing, motor sensory deficit Psychiatric exam: PRESENT: flat affect, unusual affect. ABSENT: agitated, anxious Focused psych exam: ABSENT: pressured speech, psychomotor agitation, restlessness Skin exam: PRESENT: dry, intact, skin tears, warm, other - Couple areas of ecchymosis at contact points. Mild hematomas. No active bleeding.. ABSENT: cyanosis, mottled, rash Laboratory/Radiographs Laboratory Results: 07/29/19 03:06 07/29/19 03:06 07/28/19 07/28/19 07/28/19 13:15 13:35 13:35 WBC 24.2 H RBC 6.86 H Hgb 19.7 H Hct 59.8 H MCV 87 MCH 28.8 MCHC 33.0 RDW 15.3 H Plt Count 207 Seg Neutrophils % 86.5 H Sodium 146.4 H Potassium 3.6 Chloride 102 Carbon Dioxide 31 H Anion Gap 13 BUN 53 H Creatinine 2.23 H Est GFR ( Amer) 34 L Glucose 140 H Lactic Acid Calcium 10.8 H Phosphorus Magnesium Total Bilirubin 1.4 H AST 36 Alkaline Phosphatase 90 Ammonia C-Reactive Protein Total Protein 7.4 Albumin 4.5 Lipase 56.0 TSH Free T4 Free T3 pg/mL Urine Color SHARYN Urine Appearance CLOUDY Urine pH 5.0 Ur Specific [place] 1.024 Urine Protein 100 H Urine Glucose (UA) 50 H Urine Ketones TRACE H Urine Blood MODERATE H Urine RBC (Auto) 44 07/28/19 07/28/19 07/29/19 17:30 18:27 03:06 WBC 23.4 H RBC 6.25 H Hgb 17.9 H Hct 54.8 H MCV 88 MCH 28.7 MCHC 32.7 RDW 15.5 H Plt Count 158 Seg Neutrophils % Not Reportable Sodium 145.6 H 145.6 H Potassium 4.2 3.5 L Chloride 104 105 Carbon Dioxide 27 28 Anion Gap 15 13 BUN 55 H 56 H Creatinine 1.94 H 2.02 H Est GFR ( Amer) 40 L 38 L Glucose 131 H 202 H Lactic Acid Calcium 10.2 10.2 Phosphorus 4.0 Magnesium 2.3 Total Bilirubin 1.2 1.1 AST 32 27 Alkaline Phosphatase 77 77 Ammonia C-Reactive Protein Total Protein 6.5 6.4 Albumin 4.0 3.7 Lipase TSH Free T4 Free T3 pg/mL Urine Color Urine Appearance Urine pH Ur Specific [place] Urine Protein Urine Glucose (UA) Urine Ketones Urine Blood Urine RBC (Auto) 07/29/19 07/29/19 07/29/19 03:06 03:06 03:06 WBC 24.5 H RBC 6.55 H Hgb 18.9 H Hct 56.7 H MCV 87 MCH 28.9 MCHC 33.4 RDW 15.2 H Plt Count 167 Seg Neutrophils % Not Reportable Sodium Potassium Chloride Carbon Dioxide Anion Gap BUN Creatinine Est GFR ( Amer) Glucose Lactic Acid Calcium Phosphorus Magnesium Total Bilirubin AST Alkaline Phosphatase Ammonia < 8.7 L C-Reactive Protein Total Protein Albumin Lipase TSH 0.25 L Free T4 2.51 H Free T3 pg/mL 3.25 Urine Color Urine Appearance Urine pH Ur Specific [place] Urine Protein Urine Glucose (UA) Urine Ketones Urine Blood Urine RBC (Auto) 07/29/19 07/29/19 03:06 08:44 WBC RBC Hgb Hct MCV MCH MCHC RDW Plt Count Seg Neutrophils % Sodium Potassium Chloride Carbon Dioxide Anion Gap BUN Creatinine Est GFR ( Amer) Glucose Lactic Acid 1.8 Calcium Phosphorus Magnesium Total Bilirubin AST Alkaline Phosphatase Ammonia C-Reactive Protein 44.1 H Total Protein Albumin Lipase TSH Free T4 Free T3 pg/mL Urine Color Urine Appearance Urine pH Ur Specific [place] Urine Protein Urine Glucose (UA) Urine Ketones Urine Blood Urine RBC (Auto) 07/28/19 07/28/19 07/28/19 13:35 13:35 17:30 Creatine Kinase 134 Troponin I 0.050 0.052 07/29/19 03:06 Creatine Kinase Troponin I Cancelled Impressions: Abdomen/Pelvis CT 07/28/19 00:00 IMPRESSION: 3 mm stone distal left ureter. Mild hydronephrosis. Chest X-Ray 07/28/19 12:19 IMPRESSION: NO ACUTE RADIOGRAPHIC FINDING IN THE CHEST. Head CT 07/28/19 12:19 IMPRESSION: CHRONIC CHANGES OF ATROPHY AND MICROVASCULAR ISCHEMIA. NO ACUTE PROCESS. EVIDENCE OF ACUTE STROKE: NO. All labs, radiographs, diagnostic studies and EKGs were personally reviewed: Yes In addition, reports of radiographic and diagnostic studies were read: Yes Assessment and Plan - Diagnosis (1) Hypertensive emergency without congestive heart failure Is this a current diagnosis for this admission?: Yes (2) Acute metabolic encephalopathy Is this a current diagnosis for this admission?: Yes (3) Acute kidney injury superimposed on CKD Is this a current diagnosis for this admission?: Yes (4) Alteration in anticoagulation Is this a current diagnosis for this admission?: Yes Plan: Related to plavix. Multiple areas of eccymosis (5) Hypertensive encephalopathy Is this a current diagnosis for this admission?: Yes (6) Leukocytosis Qualifiers: Leukocytosis type: unspecified Qualified Code(s): D72.829 - Elevated white blood cell count, unspecified Is this a current diagnosis for this admission?: Yes (7) Polycythemia Is this a current diagnosis for this admission?: Yes (8) Pericardial cyst Is this a current diagnosis for this admission?: Yes (9) Chronic pain disorder Is this a current diagnosis for this admission?: Yes (10) Sleep apnea in adult Is this a current diagnosis for this admission?: Yes Plan Summary: 07.29.19: The patient's encephalopathy has improved however he is extremely lethargic. The states that this is not his normal baseline status. This does not appear to be an infectious related phenomena in that patient is awake and aware when aroused from his lethargic state. On examination he does have an appearance of a right facial droop and some degree of decreased strength in the right side. I am concerned that this represents a dominant hemisphere ischemic event however the initial CAT scan was negative. We are attempting to obtain an MRI however patient has a pain pump in his back and we are unable to find a model number or type. Patient's appears to be somewhat confused about where this was placed. Although we do not feel that this is an infectious etiology we have entertained the possibility for the need of a spinal tap. He has a difficult anatomy secondary to his back surgery and arthritis. In itself that would not be a preclusion however he has taken Plavix and aspirin within the last 2 days which would be contraindicated. He has an elevation in white blood cell count but also in hemoglobin and hematocrit suggestive of extreme hemoconcentration. We have adjusted IV fluids. He is not on any mood altering drugs or narcotics to suggest that this may be a prolonged metabolism with his renal failure. There is no thrombocytopenia to consider TTP or ITP as a change in status. We will order a repeat CT scan in a 48-hour interval especially if his neurological status worsens. His noticeable sleep apnea I ordered an ABG and a CPAP. We will continue to monitor his BMP and his CBC. Did receive a moderate amount of fluids and I would have expected his hemoglobin hematocrit to improve. I am concerned that he has developed polycythemia rubra and the neurological manifestations and hypertension may be related to this as a secondary effect. We have set it up erythropoietin studies, sed rate to rule out vasculitis as well as ANCA. May need to consider using steroids but will await another 24 hours to see if there is a change. There does not appear to be seizures as a cause for his change. Critical Time Critical Time (minutes): 60 Level of Care: ICU -: 1. The care of a critical patient is a dynamic process. This note is a insurance account representative synopsis but static in nature. The timeframe for treatments given in order is not necessarily the actual time these treatments may have been done. 2. This patient requires critical care secondary to ongoing requirements for therapy not offered or safe outside the critical care environment. Transfer to a lower level of care will result in altered life or limb morbidity and mortality. 3. Multidisciplinary rounds completed. 4. ABCDE bundle addressed.
[2019-07-29 15:34] LABS: ANION GAP 14 (5-19); BLOOD UREA NITROGEN 62 mg/dL (7-20); CALCIUM 10.3 mg/dL (8.4-10.2); CARBON DIOXIDE 29 mmol/L (22-30); CHLORIDE 102 mmol/L (98-107); GLUCOSE 148 mg/dL (75-110); POTASSIUM 3.3 mmol/L (3.6-5.0)
--- NOTE | 2019-07-29 17:06 | EKG REPORT ---
SEVERITY:- ABNORMAL ECG - SINUS RHYTHM NONSPECIFIC INTRAVENTRICULAR CONDUCTION DELAY MINIMAL ST DEPRESSION, DIFFUSE LEADS : Confirmed by: Good Gutierrez 29-Jul-2019 17:04:57
--- NOTE | 2019-07-29 17:06 | EKG REPORT ---
SEVERITY:- ABNORMAL ECG - SINUS RHYTHM NONSPECIFIC REPOL ABNORMALITY, DIFFUSE LEADS : Confirmed by: Good Gutierrez 29-Jul-2019 17:05:07
[2019-07-29 19:49] LABS: ANION GAP 8 (5-19); BLOOD UREA NITROGEN 58 mg/dL (7-20); CALCIUM 9.4 mg/dL (8.4-10.2); CARBON DIOXIDE 30 mmol/L (22-30); CHLORIDE 104 mmol/L (98-107); GLUCOSE 119 mg/dL (75-110)
[2019-07-29 20:08] LABS: POTASSIUM 3.7 mmol/L (3.6-5.0)
[2019-07-30] MEDS: NICARDIPINE HCL RTU, ISO-OS 20 MG/200 ML RTUINJ IV PRN (00:01)
[2019-07-30 00:40] LABS: ANION GAP 7 (5-19); BLOOD UREA NITROGEN 58 mg/dL (7-20); CALCIUM 9.6 mg/dL (8.4-10.2); CARBON DIOXIDE 30 mmol/L (22-30); CHLORIDE 102 mmol/L (98-107); GLUCOSE 136 mg/dL (75-110)
[2019-07-30 00:47] LABS: POTASSIUM 3.4 mmol/L (3.6-5.0)
[2019-07-30] MEDS ORDERED: METOPROLOL TARTRATE PF/INJ 5 MG/5 ML SDV IV ONE ×4 (01:46→02:10)
[2019-07-30] MEDS: WATER FOR INJECTION,STERILE 1,000 ML with SODIUM CHLORIDE 38.5 MEQ IV PRN ×4 (02:27→09:30)
[2019-07-30] MEDS ORDERED: DILTIAZEM HCL INJ 25 MG/5 ML VIAL IV ONE (03:00)
[2019-07-30] MEDS ORDERED: DILTIAZEM HCL INJ 25 MG/5 ML VIAL ONE (03:07)
[2019-07-30] MEDS ORDERED: POTASSI CL 20 MEQ/50 ML RIDER 20 MEQ/50 ML RTUPB IV ONE (03:17)
[2019-07-30] MEDS: POTASSI CL 20 MEQ/50 ML RIDER 20 MEQ/50 ML RTUPB IV SCH ×2 (03:34→04:41)
--- NOTE | 2019-07-30 03:38 | RADIOLOGY REPORT (SQ) ---
Chest single view on 07/30/2019 at 3:13 AM CLINICAL INDICATION: New onset atrial fibrillation with rapid ventricular response COMPARISON: 07/28/2019 FINDINGS: Multiple wires are noted projecting over the chest. Borderline cardiomegaly is noted. There is mild elevation of the right hemidiaphragm. The lungs are clear. Hilar and mediastinal contours are within normal limits. IMPRESSION: No acute disease.
[2019-07-30 03:48] LABS: ABSOLUTE BASOPHILS # (AUTO) 0.1 10^3/uL (0.0-0.2); ABSOLUTE EOSINOPHILS # (AUTO) 0.1 10^3/uL (0.0-0.6); ABSOLUTE LYMPHOCYTES (AUTO) 1.9 10^3/uL (0.5-4.7); ABSOLUTE MONOCYTES (AUTO) 2.3 10^3/uL (0.1-1.4); BASOPHILS % (AUTO) 0.3 % (0-2); EOSINOPHILS % (AUTO) 0.3 % (0-6); HEMATOCRIT 50.6 % (37.9-51.0); MEAN CORPUSCULAR HGB CONC 33.6 g/dL (32.0-36.0); MEAN CORPUSCULAR VOLUME 86 fl (80-97); PLATELET COUNT 143 10^3/uL (150-450); RED BLOOD COUNT 5.87 10^6/uL (4.35-5.55); RED CELL DISTRIBUTION WIDTH 15.6 % (11.5-14.0); SEGMENTED NEUTROPHILS % (AUTO) 77.4 % (42-78); TOTAL CELLS COUNTED % (AUTO) 100 %; WHITE BLOOD COUNT 19.3 10^3/uL (4.0-10.5)
[2019-07-30 04:00] LABS: PHOSPHORUS 3.9 mg/dL (2.5-4.5)
[2019-07-30 04:11] LABS: TROPONIN I 0.079 ng/mL
[2019-07-30] MEDS: HEPARIN SOD (PORCINE) 5,000 UNIT/ML 1 ML VIAL SUBCUT SCH (05:40)
--- NOTE | 2019-07-30 09:28 | EKG REPORT ---
SEVERITY:- ABNORMAL ECG - ATRIAL FIBRILLATION, V-RATE 68-102 RIGHT AXIS DEVIATION REPOL ABNRM SUGGESTS ISCHEMIA, ANT-LAT LEADS : Confirmed by: Good Gutierrez 30-Jul-2019 09:27:35
[2019-07-30 10:29] LABS: ALKALINE PHOSPHATASE 63 U/L (38-126); ANION GAP 9 (5-19); ASPARTATE AMINO TRANSFERASE 40 U/L (17-59); BILIRUBIN,DIRECT 0.6 mg/dL (0.0-0.4); BILIRUBIN,TOTAL 2.1 mg/dL (0.2-1.3); BLOOD UREA NITROGEN 53 mg/dL (7-20); CALCIUM 9.2 mg/dL (8.4-10.2); CARBON DIOXIDE 28 mmol/L (22-30); CHLORIDE 102 mmol/L (98-107); GLUCOSE 118 mg/dL (75-110); POTASSIUM 3.7 mmol/L (3.6-5.0); TOTAL PROTEIN 5.5 g/dL (6.3-8.2)
--- NOTE | 2019-07-30 10:57 | PDOC CRITICAL CARE PROG REPORT ---
General Date:: 07/11/19 Resuscitation Status: Other - Do Not Intubate Medical Power of Collections Professional: Events in the past 12 to 24 Hours:: 07.30.19: Patient's blood pressure has been very labile. He was on a Cardene drip but is now been weaned to off. He has intermittent bouts of confusion. Last evening he developed atrial fibrillation with a rapid ventricular response which resolved with IV Lopressor. 07.29.19: Patient's mental status continues to wax and wane. We have been unable to perform LP secondary to patient's anatomy and the concurrent use of Plavix which would be contraindicated. Patient is answering questions but is confused. His Cardene drip has been weaned off. 07.28.19: Mr. Dominique is an 84-year-old male with a past medical history of hypertension, CAD status post 4 coronary stents in the past, CKD, and optic nerve stroke in 2001 who presented to [facility] with altered mental status and hypertensive emergency. Mrs. Dominique found her on the floor next to his recliner after last seeing him normal at approximately 11 PM last night. His ambulation and strength has progressively gotten worse though is not acute, for which he could not make it to the bedroom and decided to sleep in the recliner overnight. Patient's denies Mr. Dominique having dementia but does report he has some recent mild memory difficulty. Patient has reportedly had intermittent nausea and vomiting the past 2 days for which his describes it as brown, but denies a coffee-ground appearance in the emesis. He is also had generalized abdominal pain that is not acute for which he does not guard his abdomen, have rebound tenderness, or display signs of peritonitis. CT head reveals no acute stroke, though there is chronic microvascular ischemia and atrophy. Chest x-ray is without an acute intrapulmonary process. CT abdomen/pelvis demonstrates no acute surgical abdomen, though there is evidence of cholelithiasis without cholecystitis, diverticulosis, enlarged prostate, atherosclerosis of the aorta and iliac arteries, a distal left ureteral calculus with mild hydronephrosis as well as an incidental finding of a pericardial cyst. Mr. Dominique will be admitted to ICU for serial neuro exams and hemodynamic instability requiring a Cardene infusion to control his blood pressure. Review of systems relevant to events:: 07.30.19: We were informed that the hospital does not have any further IV Cardene. The lab is informed us that the patient's blood has been clotting before getting to the lab. The last labs shows improvement in creatinine. Hemoglobin hematocrit have improved slightly with IV fluids but are still el evated. Leukocytosis has improved without any antibiotics. Has required CPAP because of obstructive sleep apnea. He is intermittently confused and pulling at IVs. 07.29.19: states that the patient's condition has been declining over the past few months. He has become more weak. No active seizures seen. Noted active sleep apnea observed in ICU with desaturation. Patient started on CPAP. Reason for ICU Addmission:: Hypertensive Encephalopathy with hemodynamic instability - Medications: Vasopressors:: Cardene off Sedation:: None Physical Exam Vital Signs: Temp Pulse Resp BP Pulse Ox 98.8 F 76 16 165/85 H 100 07/30/19 08:00 07/30/19 10:00 07/30/19 10:15 07/30/19 10:15 07/30/19 10:15 Intake & Output 07/29/19 07/30/19 07/31/19 06:59 06:59 06:59 Intake Total 1548 594 77 Output Total 835 0 Balance 1548 -241 77 Weight 82.9 kg 86.7 kg 86.7 kg Weight/Height Weight 86.7 kg Height 5 ft 9 in General appearance: PRESENT: no acute distress, disheveled, well-developed, well-nourished Exam: Elderly nontoxic 84-year-old white male with a rubric face no active distress follows commands intermittently. Head exam: PRESENT: atraumatic, normocephalic, other - Rubric cheeks Eye exam: PRESENT: conjunctiva pink, PERRLA, other - Patient would not follow commands to perform EOMI. ABSENT: conjunctival injection, nystagmus, scleral icterus Mouth exam: PRESENT: moist, neck supple Teeth exam: PRESENT: edentulous Neck exam: ABSENT: carotid bruit, JVD, lymphadenopathy, thyromegaly Respiratory exam: PRESENT: clear to auscultation major, unlabored. ABSENT: accessory muscle use, rales, rhonchi, tachypnea, wheezes Cardiovascular exam: PRESENT: irregular rhythm, +S1, +S2, other - Rate controlled Vascular exam: PRESENT: normal capillary refill. ABSENT: pallor GI/Abdominal exam: PRESENT: normal bowel sounds, soft. ABSENT: ascites, distended, guarding, mass, organolmegaly, rebound, tenderness Gentrourinary exam: ABSENT: indwelling catheter Extremities exam: PRESENT: pedal edema. ABSENT: tenderness Musculoskeletal exam: ABSENT: deformity, dislocation Neurological exam: PRESENT: altered, awake, other - No focal motor deficits but weak upper and lower symmetrically. GCS: 4-3-6. Will not perform some tests-- Psychiatric exam: PRESENT: agitated Focused psych exam: PRESENT: psychomotor agitation, restlessness. ABSENT: pressured speech Skin exam: PRESENT: abrasion, erythema, skin tears - All present prior to admission. Erythema has improved. Has eccymosis at contact points. Laboratory/Radiographs Laboratory Results: 07/30/19 03:28 07/30/19 09:40 07/29/19 07/29/19 07/29/19 12:13 13:50 18:50 WBC RBC Hgb Hct MCV MCH MCHC RDW Plt Count Seg Neutrophils % Carbonic Acid 1.28 HCO3/H2CO3 Ratio 20:1 ABG pH 7.41 ABG pCO2 42.4 ABG pO2 76.3 L ABG HCO3 26.4 H ABG O2 Saturation 95.4 ABG Base Excess 1.5 FiO2 ROOM AIR Sodium 144.6 141.5 Potassium 3.3 L 3.7 Chloride 102 104 Carbon Dioxide 29 30 Anion Gap 14 8 BUN 62 H 58 H Creatinine 2.16 H 1.92 H Est GFR ( Amer) 36 L 41 L Est GFR (Non-Af Amer) Glucose 148 H 119 H Calcium 10.3 H 9.4 Phosphorus Magnesium Total Bilirubin AST Alkaline Phosphatase Total Protein Albumin 07/29/19 07/29/19 07/30/19 22:40 23:30 00:13 WBC RBC Hgb Hct MCV MCH MCHC RDW Plt Count Seg Neutrophils % Carbonic Acid HCO3/H2CO3 Ratio ABG pH ABG pCO2 ABG pO2 ABG HCO3 ABG O2 Saturation ABG Base Excess FiO2 Sodium Cancelled Cancelled 138.9 Potassium Cancelled Cancelled 3.4 L Chloride Cancelled Cancelled 102 Carbon Dioxide Cancelled Cancelled 30 Anion Gap Cancelled Cancelled 7 BUN Cancelled Cancelled 58 H Creatinine Cancelled Cancelled 1.88 H Est GFR ( Amer) Cancelled Cancelled 42 L Est GFR (Non-Af Amer) Cancelled Cancelled Glucose Cancelled Cancelled 136 H Calcium Cancelled Cancelled 9.6 Phosphorus Magnesium Total Bilirubin AST Alkaline Phosphatase Total Protein Albumin 07/30/19 07/30/19 07/30/19 03:28 03:28 08:50 WBC 19.3 H RBC 5.87 H Hgb 17.0 Hct 50.6 MCV 86 MCH 29.0 MCHC 33.6 RDW 15.6 H Plt Count 143 L Seg Neutrophils % 77.4 Carbonic Acid HCO3/H2CO3 Ratio ABG pH ABG pCO2 ABG pO2 ABG HCO3 ABG O2 Saturation ABG Base Excess FiO2 Sodium Cancelled Potassium Cancelled Chloride Cancelled Carbon Dioxide Cancelled Anion Gap Cancelled BUN Cancelled Creatinine Cancelled Est GFR ( Amer) Cancelled Est GFR (Non-Af Amer) Cancelled Glucose Cancelled Calcium Cancelled Phosphorus 3.9 Magnesium 2.1 Total Bilirubin AST Alkaline Phosphatase Total Protein Albumin 07/30/19 09:40 WBC RBC Hgb Hct MCV MCH MCHC RDW Plt Count Seg Neutrophils % Carbonic Acid HCO3/H2CO3 Ratio ABG pH ABG pCO2 ABG pO2 ABG HCO3 ABG O2 Saturation ABG Base Excess FiO2 Sodium 138.7 Potassium 3.7 Chloride 102 Carbon Dioxide 28 Anion Gap 9 BUN 53 H Creatinine 1.62 H Est GFR ( Amer) 50 L Est GFR (Non-Af Amer) Glucose 118 H Calcium 9.2 Phosphorus Magnesium Total Bilirubin 2.1 H AST 40 Alkaline Phosphatase 63 Total Protein 5.5 L Albumin 3.0 L 07/28/19 07/28/19 07/28/19 13:35 13:35 17:30 Creatine Kinase 134 Troponin I 0.050 0.052 NT-Pro-B Natriuret Pep 07/29/19 07/30/19 07/30/19 03:06 03:28 08:50 Creatine Kinase Troponin I Cancelled 0.079 Cancelled NT-Pro-B Natriuret Pep 770 H Impressions: Abdomen/Pelvis CT 07/28/19 00:00 IMPRESSION: 3 mm stone distal left ureter. Mild hydronephrosis. Head CT 07/28/19 12:19 IMPRESSION: CHRONIC CHANGES OF ATROPHY AND MICROVASCULAR ISCHEMIA. NO ACUTE PROCESS. EVIDENCE OF ACUTE STROKE: NO. Chest X-Ray 07/30/19 00:00 IMPRESSION: No acute disease. All labs, radiographs, diagnostic studies and EKGs were personally reviewed: Yes In addition, reports of radiographic and diagnostic studies were read: Yes Assessment and Plan - Diagnosis (1) Hypertensive emergency without congestive heart failure Is this a current diagnosis for this admission?: Yes (2) Acute metabolic encephalopathy Is this a current diagnosis for this admission?: Yes (3) Acute kidney injury superimposed on CKD Is this a current diagnosis for this admission?: Yes (4) Alteration in anticoagulation Is this a current diagnosis for this admission?: Yes Plan: Related to plavix. Multiple areas of eccymosis (5) Hypertensive encephalopathy Is this a current diagnosis for this admission?: Yes (6) Leukocytosis Qualifiers: Leukocytosis type: unspecified Qualified Code(s): D72.829 - Elevated white blood cell count, unspecified Is this a current diagnosis for this admission?: Yes (7) Polycythemia Is this a current diagnosis for this admission?: Yes (8) Pericardial cyst Is this a current diagnosis for this admission?: Yes (9) Chronic pain disorder Is this a current diagnosis for this admission?: Yes (10) Sleep apnea in adult Is this a current diagnosis for this admission?: Yes (11) Atrial fibrillation with rapid ventricular response Is this a current diagnosis for this admission?: Yes Plan: Acute, persistent Plan Summary: 07.30.19: The patient's neurological condition has improved but he is still intermittently confused. There is some suspicion that he has been imbibing alcohol based on some of his answers. We will order CAT scan of the brain today with contrast. I have excepted re sponsibility for worsening renal function ever we are unable to obtain MRI it is essential to determine whether an arteriopathy with vasculitis exists. We are unable to perform LP because of his recent use of Plavix and his anatomy. 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 Even the fact that he has atrial fibrillation, his blood is clotting quickly, and he has polycythemia we will start heparin therapy for the time being. His atrial fibrillation is controlled and rate however if it becomes problematic, given the inability to obtain Cardene, he may be better suited with a non-dihydropyridine calcium channel gregorio. Will obtain echocardiogram as well to look at LV function and valve function. 07.29.19: The patient's encephalopathy has improved however he is extremely lethargic. The states that this is not his normal baseline status. This does not appear to be an infectious related phenomena in that patient is awake and aware when aroused from his lethargic state. On examination he does have an appearance of a right facial droop and some degree of decreased strength in the right side. I am concerned that this represents a dominant hemisphere ischemic event however the initial CAT scan was negative. We are attempting to obtain an MRI however patient has a pain pump in his back and we are unable to find a model number or type. Patient's appears to be somewhat confused about where this was placed. Although we do not feel that this is an infectious etiology we have entertained the possibility for the need of a spinal tap. He has a difficult anatomy secondary to his back surgery and arthritis. In itself that would not be a preclusion however he has taken Plavix and aspirin within the last 2 days which would be contraindicated. He has an elevation in white blood cell count but also in hemoglobin and hemat ocrit suggestive of extreme hemoconcentration. We have adjusted IV fluids. He is not on any mood altering drugs or narcotics to suggest that this may be a prolonged metabolism with his renal failure. There is no thrombocytopenia to consider TTP or ITP as a change in status. We will order a repeat CT scan in a 48-hour interval especially if his neurological status worsens. His noticeable sleep apnea I ordered an ABG and a CPAP. We will continue to monitor his BMP and his CBC. Did receive a moderate amount of fluids and I would have expected his hemoglobin hematocrit to improve. I am concerned that he has developed polycythemia rubra and the neurological manifestations and hypertension may be related to this as a secondary effect. We have set it up erythropoietin studies, sed rate to rule out vasculitis as well as ANCA. May need to consider using steroids but will await another 24 hours to see if there is a change. There does not appear to be seizures as a cause for his change. Critical Time Critical Time (minutes): 60 Level of Care: ICU -: 1. The care of a critical patient is a dynamic process. This note is a senior outside sales representative synopsis but static in nature. The timeframe for treatments given in order is not necessarily the actual time these treatments may have been done. 2. This patient requires critical care secondary to ongoing requirements for therapy not offered or safe outside the critical care environment. Transfer to a lower level of care will result in altered life or limb morbidity and mortality. 3. Multidisciplinary rounds completed. 4. ABCDE bundle addressed.
[2019-07-30 11:49] LABS: ABSOLUTE EOSINOPHILS # (AUTO) 0.1 10^3/uL (0.0-0.6); ABSOLUTE LYMPHOCYTES (AUTO) 1.6 10^3/uL (0.5-4.7); ABSOLUTE MONOCYTES (AUTO) 1.7 10^3/uL (0.1-1.4); ABSOLUTE NEUT (AUTO) 10.7 10^3/uL (1.7-8.2); BASOPHILS % (AUTO) 0.3 % (0-2); EOSINOPHILS % (AUTO) 0.6 % (0-6); HEMATOCRIT 50.5 % (37.9-51.0); HEMOGLOBIN 16.9 g/dL (13.5-17.0); LYMPHOCYTES % (AUTO) 11.4 % (13-45); MEAN CORPUSCULAR HEMOGLOBIN 29.1 pg (27.0-33.4); MEAN CORPUSCULAR HGB CONC 33.6 g/dL (32.0-36.0); MEAN CORPUSCULAR VOLUME 87 fl (80-97); MONOCYTES % (AUTO) 12.2 % (3-13); PLATELET COUNT 140 10^3/uL (150-450); RED BLOOD COUNT 5.82 10^6/uL (4.35-5.55); RED CELL DISTRIBUTION WIDTH 15.6 % (11.5-14.0); SEGMENTED NEUTROPHILS % (AUTO) 75.5 % (42-78); TOTAL CELLS COUNTED % (AUTO) 100 %; WHITE BLOOD COUNT 14.1 10^3/uL (4.0-10.5)
[2019-07-30 12:02] LABS: INTERNATIONAL RATION (INR) 1.02; PROTHROMBIN TIME 13.4 SEC (11.4-15.4)
[2019-07-30 12:03] LABS: PARTIAL THROMBOPLASTIN TIME 26.3 SEC (23.5-35.8)
--- NOTE | 2019-07-30 16:37 | RADIOLOGY REPORT (SQ) ---
EXAM DESCRIPTION: CT HEAD COMBO COMPLETED DATE/TIME: 07/30/2019 3:55 pm REASON FOR STUDY: vasculitis, polycythemia COMPARISON: 07/28/2019 TECHNIQUE: Axial images acquired through the brain without and with intravenous contrast. Images re viewed with bone, brain, and subdural windows. Images stored on PACS. All CT scanners at this facility use dose modulation, iterative reconstruction, and/or weight based d osing when appropriate to reduce radiation dose to as low as reasonably achievable (ALARA). [facility]: Dose Right [facility]: CareDose [facility]: Dose Right [facility]: Teradose 4D [facility]: Memopal CONTRAST TYPE AND DOSE: contrast/concentration: Isovue 350.00 mg/ml; Total Contrast Delivered: 50.0 ml; Total Saline Delivered: 50.0 ml RENAL FUNCTION: GFR > 60. RADIATION DOSE: CT Rad equipment meets quality standard of care and radiation dose reduction techniq ues were employed. CTDIvol: 53.2 mGy. DLP: 2247 mGy-cm. . LIMITATIONS: None. FINDINGS: VENTRICLES: Prominent. CEREBRUM: No masses. No hemorrhage. No midline shift. Areas of low density in the white matter mos t likely due to chronic micro-vascular ischemic change. No evidence for acute infarction. No enhanc ing lesions. CEREBELLUM: No masses. No hemorrhage. No alteration of density. No evidence for acute infarction. No enhancing lesions. EXTRAAXIAL SPACES: Age-related involutional change. No fluid collections. No masses. No enhancing lesions. ORBITS AND GLOBE: No intra- or extraconal masses. Normal contour of globe without masses. CALVARIUM: No fracture. PARANASAL SINUSES: No fluid or mucosal thickening. SOFT TISSUES: No mass or hematoma. OTHER: No other significant finding. IMPRESSION: CHRONIC CHANGES OF ATROPHY AND MICROVASCULAR ISCHEMIA. NO ACUTE PROCESS. NO ENHANCING LESIONS. EVIDENCE OF ACUTE STROKE: NO. TECHNICAL DOCUMENTATION: JOB ID: [id number] [id number] Quality ID # [id number]: Final reports with documentation of one or more dose reduction techniques (e.g., Au tomated exposure control, adjustment of the mA and/or kV according to patient size, use of iterative reconstruction technique) 2010 [employer]- All Rights Reserved Reading location - IP/workstation name: [employer]
[2019-07-30] MEDS ORDERED: HYDRALAZINE HCL INJ/PF 20 MG/1 ML SDV IV ONE (17:20)
[2019-07-30] MEDS ORDERED: HEPARIN SODIUM,PORCINE/D5W 25,000 UNIT/250 ML RTUINJ IV PRN (18:30)
[2019-07-30] MEDS ORDERED: HEPARIN SOD (PORCINE) 1,000 UNIT/ML 10 ML VIAL ONE (20:04)
[2019-07-30] MEDS: HEPARIN SOD (PORCINE) 1,000 UNIT/ML 10 ML VIAL IV PRN (20:08)
[2019-07-30 20:16] LABS: INTERNATIONAL RATION (INR) 0.95; PROTHROMBIN TIME 12.6 SEC (11.4-15.4)
[2019-07-30 20:59] LABS: PARTIAL THROMBOPLASTIN TIME < 20.0 SEC (23.5-35.8)
--- NOTE | 2019-07-30 22:34 | RADIOLOGY REPORT (SQ) ---
EXAM DESCRIPTION: [facility]: XR CHEST 1 VIEW CLINICAL HISTORY: 84 years Male, R IJ line placement FINDINGS: AP chest at 2212. Since this morning at 0313, right IJ line has been placed, tip in the SVC. No pneumothorax. Lungs are well-inflated. Mediastinum is unremarkable. IMPRESSION: Right IJ line tip in the SVC. No pneumothorax.
[2019-07-30] MEDS: DEXTROSE 5%-1/4 NORMAL SALINE 1,000 ML IV PRN (23:02)
[2019-07-31] MEDS ORDERED: LABETALOL HCL INJ 20 MG/4 ML DISP.SYRIN IV ONE ×2 (01:19→01:22)
[2019-07-31] MEDS: DEXTROSE 5%-1/4 NORMAL SALINE 1,000 ML IV PRN (05:47)
[2019-07-31 06:22] LABS: ABSOLUTE EOSINOPHILS # (AUTO) 0.1 10^3/uL (0.0-0.6); ABSOLUTE LYMPHOCYTES (AUTO) 1.4 10^3/uL (0.5-4.7); ABSOLUTE MONOCYTES (AUTO) 1.2 10^3/uL (0.1-1.4); ABSOLUTE NEUT (AUTO) 6.6 10^3/uL (1.7-8.2); BASOPHILS % (AUTO) 0.3 % (0-2); EOSINOPHILS % (AUTO) 1.6 % (0-6); HEMATOCRIT 43.2 % (37.9-51.0); LYMPHOCYTES % (AUTO) 14.6 % (13-45); MEAN CORPUSCULAR HEMOGLOBIN 29.3 pg (27.0-33.4); MEAN CORPUSCULAR HGB CONC 33.9 g/dL (32.0-36.0); MEAN CORPUSCULAR VOLUME 86 fl (80-97); MONOCYTES % (AUTO) 13.2 % (3-13); PLATELET COUNT 114 10^3/uL (150-450); RED CELL DISTRIBUTION WIDTH 15.2 % (11.5-14.0); SEGMENTED NEUTROPHILS % (AUTO) 70.3 % (42-78); TOTAL CELLS COUNTED % (AUTO) 100 %; WHITE BLOOD COUNT 9.4 10^3/uL (4.0-10.5)
[2019-07-31 06:23] LABS: HEMOGLOBIN 14.6 g/dL (13.5-17.0)
[2019-07-31 06:39] LABS: ALBUMIN 2.6 g/dL (3.5-5.0); ALKALINE PHOSPHATASE 57 U/L (38-126); ASPARTATE AMINO TRANSFERASE 25 U/L (17-59); BILIRUBIN,DIRECT 0.4 mg/dL (0.0-0.4); BLOOD UREA NITROGEN 40 mg/dL (7-20); CALCIUM 8.6 mg/dL (8.4-10.2); CHLORIDE 103 mmol/L (98-107); GLUCOSE 152 mg/dL (75-110); PHOSPHORUS 3.7 mg/dL (2.5-4.5); POTASSIUM 3.4 mmol/L (3.6-5.0)
[2019-07-31 06:44] LABS: CARBON DIOXIDE 31 mmol/L (22-30)
[2019-07-31] MEDS: HEPARIN SOD (PORCINE) 1,000 UNIT/ML 10 ML VIAL IV PRN (06:47)
[2019-07-31 06:49] LABS: ANION GAP 3 (5-19)
--- NOTE | 2019-07-31 06:51 | Operative Report ---
Bedside Procedure - History of Present Illness Indication for Procedure: see Indication in body of Note Provider: OFELIA AWAN - Central Line Right Internal jugular Time completed: 21:30 Consent obtained: Yes Central line pre-insertion: Sterile PPE donned, Chloraprep applied, Sterile drapes applied Central line size (Fr.): 7 Central line lumen type: Triple Anesthetic type: 1% Lidocaine mL's of anesthesia: 5 Ultrasound guided: Yes CM at insertion site: 20 Line secured with sutures: Yes Central line post-insertion: Blood return from lumens, Biopatch applied, Sutured, Sterile dressing applied, Position confirmed w/ CXR Number of attempts: 1 Complications: No Notes: 07/30/19 21:30 Indication: Phlebotomy and nursing both having difficulty with specimens with repeat hemolysis. Phlebotomy having difficulty obtaining enough blood for PTT specimen and patient has been stuck many times throughout the day due to the above. 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 Central line placement will allow nursing and lab to obtain specimens without difficulty, which will decrease the time delay in care, and improve patient comfort by not having to be stuck repeatedly throughout the day. Arterial line placement was considered and lieu of central line; however, the concern is that with the presumed hyperviscosity the patient may develop a thrombus in a radial artery and may not have the collateral flow to supply the digits of the hand, resulting in possible ischemia/amputation. For this reason the decision was made to place a central venous catheter. After obtaining consent and placing patient in appropriate procedural position, sterile PPE was donned followed by prepping and draping in usual sterile fashion. Ultrasound was utilized as well as the right internal jugular vein which demonstrated no thrombus from the angle of the mandible down to the superior portion of the clavicle. Site was anesthetized with 5 mL of 1% lidocaine. A 20-gauge introducer needle attached to a 10 mL syringe under negative pressure aspiration was advanced through the skin and subcutaneous tissue and visualized entering the right internal jugular vein with a hong of blood. The syringe was detached from the needle and a guidewire was inserted through the needle into the right internal jugular vein, subsequently removing the introducer needle over the wire. The guidewire was confirmed to be in the right internal jugular vein in 2 views utilizing ultrasound, then a small skin stab incision was made over the wire to prepare for dilation. A dilator was then passed over the wire to dilate the skin and subcutaneous tissue and subs equently removed. Next, a 7 [place] 20 cm central venous catheter was loaded onto the wire and advanced into the right internal jugular vein while maintaining control of the distal wire. The catheter passed over the wire easily and the wire was subsequently removed, noting a slow dripping of blood onto the sterile field. All 3 lm were aspirated with ease of blood return and then flushed with 10 mL of sterile saline in each lumen to prevent thrombus formation while the line is being verified. A Biopatch was placed at the skin site, the line was sutured into place with 2, 3o silk sutures, and a sterile transparent occlusive dressing was applied. Patient tolerated procedure well and a chest x-ray was ordered demonstrating no pneumothorax with successful line placement in the SVC. 07/30/19 23:12
--- NOTE | 2019-07-31 06:56 | Progress Note ---
Provider Note Provider Note: Notified by RN that patient heart rate 150s for which I went to the bedside noting regular QRS intervals on the bedside monitoring and evaluation advisor. I awakened the patient to assess for chest pain/palpitations/shortness of breath for which he denies all 3 symptoms. Though his heart rate slowed to 86 normal sinus rhythm within 2 minutes of awakening. Less than 5 minutes after I left the room, the patient's heart rate increased to 130s and was irregular for which I sped up the sweep speed on the monitoring and evaluation advisor to look for P waves, noting the patient was in new onset atrial fibrillation with RVR. The patient's diastolic blood pressure was 112 and MAP was 131 for which the decision was made to increase the nicardipine infusion to determine if HTN was contributing to the arrhythmia. Simultaneously, Metoprolol 5 mg IV push was administered as a total of 3 doses over the next 20 minutes without success in controlling heart rate, remaining in A fib RVR. Serum potassium noted to be 3.4 on labs around midnight for which I will add a magnesium and phosphorus onto those labs and replete with potassium chloride. Will obtain 12-lead EKG, Troponin, BNP, CBC, and chest x-ray to rule out acute cardiac ischemia/infarction as well as infection as potential sources of the new onset arrhythmia. Also Nicardipine was stopped to avoid precipitously decreasing patient's BP in order to administer Diltiazem at 0.25 mg/kg IV push x1. Diltiazem did decrease the heart rate to the 80s, though still remains in A fib. His MAP is 93 post-Diltiazem. We will continue to observe and if remains in arrhythmia, may need anticoagulation. If RVR returns, will start Amiodarone to avoid what would be hypotension for someone that is chronically hypertensive in setting of Mr. Dominique' acute metabolic encephalopathy since admission. The EKG does demonstrate new T wave inversion in precordial V6 with more pronounced radha-lateral precordial T wave inversion when compared to yesterday's latest EKG. EKG also with some mild ST depression in precordial leads, which is no more pronounced than previous EKG. Will f/u troponins. Update at 04:05 am, patient in normal sinus rhythm with HR 73, MAP 101. Troponin 0.079; will repeat in 6 hrs to ensure not continuing to trending upward. Not volume overloaded, BNP 770. Will repeat another EKG later this AM as well. Leukocytosis decreasing compared to yesterday, remains euthermic. A total of 40 minutes additional critical care time was spent identifying arrhyt hmia, evaluating patient, reviewing most recent lab work, coordinating further lab tests/diagnostics, reviewing diagnostics/labs, and observing effects of administered medications.
[2019-07-31] MEDS ORDERED: DEXTROSE 5%-1/4 NORMAL SALINE 1,000 ML IV PRN (06:57)
[2019-07-31] MEDS: POTASSI CL 20 MEQ/50 ML RIDER 20 MEQ/50 ML RTUPB IV SCH ×2 (09:12→10:44)
[2019-07-31] MEDS ORDERED: POLYETHYLENE GLYCOL 3350 POWDER 17 GM/1 PACKET PO PRN (09:42)
[2019-07-31] MEDS ORDERED: (PENDING PHARMACY ID) (Benazepril Hcl [Lotensin] 40 MG) PO SCH (10:00)
[2019-07-31] MEDS ORDERED: UBIDECARENONE 300 MG PO SCH (10:00)
[2019-07-31] MEDS ORDERED: DOCUSATE SODIUM 100 MG CAPSULE PO SCH (10:00)
[2019-07-31] MEDS: LACTULOSE SYRUP 20 GM/30 ML UDCUP PO SCH ×2 (10:22→13:03)
[2019-07-31] MEDS: ATENOLOL 50 MG TABLET PO SCH (10:23)
[2019-07-31] MEDS: TAMSULOSIN HCL 0.4 MG CAP.SR.24H PO SCH (10:23)
[2019-07-31] MEDS: MULTIVITAMIN TABLET PO SCH (10:23)
[2019-07-31] MEDS: BENAZEPRIL HCL 20 MG TABLET PO SCH (10:25)
[2019-07-31] MEDS ORDERED: HALOPERIDOL LACTATE INJ 5 MG/1 ML VIAL IV ONE (11:30)
[2019-07-31 13:19] LABS: ARTERIAL BLOOD BASE EXCESS -0.2 mmol/L; ARTERIAL BLOOD H2CO3 1.11 mmol/L (1.05-1.35); ARTERIAL BLOOD HCO3 23.7 mmol/L (20-24); ARTERIAL BLOOD O2 SATURATION 97.3 % (94-98); ARTERIAL BLOOD PCO2 36.9 mmHg (35-45); ARTERIAL BLOOD PH 7.43 (7.35-7.45); ARTERIAL BLOOD PO2 92.5 mmHg (80-100); ARTERIAL BLOOD TOTAL CO2 24.9 mmol/L (23-27)
[2019-07-31 13:20] LABS: ARTERIAL BLOOD FIO2 2L
--- NOTE | 2019-07-31 16:00 | PDOC CRITICAL CARE PROG REPORT ---
General Date:: 07/31/19 ICU Day:: 3 Hospital Day:: 3 Resuscitation Status: Do Not Resuscitate - Do Not Intubate Medical Power of Transit Specialist: Events in the past 12 to 24 Hours:: 07.31.19: Blood pressure has been under better control and now on oral medication. His mental status has improved as well but he is intermittently lethargic without reason. CT scan was unremarkable and there was no evidence of vasculitis. An ABG, done during an episode of lethargy, showed no evidence of hypercarbia. He was started on heparin drip because of what appeared to be a concentration of the blood leading to premature clot formation in the blood tubes. 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 His CBC is remarkably improved with fluid therapy. Much more communicative 07.30.19: Patient's blood pressure has been very labile. He was on a Cardene drip but is now been weaned to off. He has intermittent bouts of confusion. Last evening he developed atrial fibrillation with a rapid ventricular response which resolved with IV Lopressor. 07.29.19: Patient's mental status continues to wax and wane. We have been unable to perform LP secondary to patient's anatomy and the concurrent use of Plavix which would be contraindicated. Patient is answering questions but is confused. His Cardene drip has been weaned off. 07.28.19: Mr. Dominique is an 84-year-old male with a past medical history of hypertension, CAD status post 4 coronary stents in the past, CKD, and optic nerve stroke in 2001 who presented to [facility] with altered mental status and hypertensive emergency. Mrs. Dominique found her on the floor next to his recliner after last seeing him normal at approximately 11 PM last night. His ambulation and strength has progressively gotten worse though is not acute, for which he could not make it to the bedroom and decided to sleep in the recliner overnight. Patient's denies Mr. Dominique having dementia but does report he has some recent mild memory difficulty. Patient has reportedly had intermittent nausea and vomiting the past 2 days for which his describes it as brown, but denies a coffee-ground appearance in the emesis. He is also had generalized abdominal pain that is not acute for which he does not guard his abdomen, have rebound tenderness, or display signs of peritonitis. CT head reveals no acute stroke, though there is chronic microvascular ischemia and atrophy. Chest x-ray is without an acute intrapulmonary process. CT abdomen/pelvis demonstrates no acute surgical abdomen, though there is evidence of cholelithiasis without cholecystitis, diverticulosis, enlarged prostate, atherosclerosis of the aorta and iliac arteries, a distal left ureteral calculus with mild hydronephrosis as well as an incidental finding of a pericardial cyst. Mr. Dominique will be admitted to ICU for serial neuro exams and hemodynamic instability requiring a Cardene infusion to control his blood pressure. Review of systems relevant to events:: 07.31.19: Still intermittently confused and lethargic at times. Evidence to support nonconvulsive status as far as piloerection, nystagmus. He occasionally has intermittent hypertension exacerbation. Work-up for autoimmune process of vasculitis is still pending. Started on heparin and has had no bleeding. Heparin is been on hold for consideration for LP. Nurses report intermittent picking at IV catheters and medical devices. At times restless. Had lengthy discussion with his son Parish who states that the patient has had gradual decline in his mental health. His confirms this and today says that he is not at his normal altered baseline. given consent for the LP which we will be doing to rule out paraneoplastic process as well as encephalitis. An attempted LP was made however due to his anatomy and arthritis was unsuccessful. He has had a dramatic improvement in his CBC indices. 07.30.19: We were informed that the hospital does not have any further IV Cardene. The lab is informed us that the patient's blood has been clotting before getting to the lab. The last labs shows improvement in creatinine. Hemoglobin hematocrit have improved slightly with IV fluids but are still elevated. Leukocytosis has improved without any antibiotics. Has required CPAP because of obstructive sleep apnea. He is intermittently confused and pulling at IVs. 07.29.19: states that the patient's condition has been declining over the past few months. He has become more weak. No active seizures seen. Noted active sleep apnea observed in ICU with desaturation. Patient started on CPAP. Reason for ICU Addmission:: Hypertensive Encephalopathy with hemodynamic instability - Medications: Vasopressors:: None Sedation:: None Physical Exam Vital Signs: Temp Pulse Resp BP Pulse Ox 99.5 F 65 14 164/70 H 100 07/31/19 12:00 07/31/19 14:00 07/31/19 14:15 07/31/19 14:15 07/31/19 14:15 Intake & Output 07/30/19 07/31/19 08/01/19 06:59 06:59 06:59 Intake Total 594 1183 1052 Output Total 835 900 705 Balance -241 283 347 Weight 86.7 kg 89.8 kg Weight/Height Weight 89.8 kg Height 5 ft 9 in General appearance: PRESENT: no acute distress, obese, well-developed, well- nourished Exam: Pleasant elderly nontoxic 84-year-old male with a rubric face. At times he is awake oriented to person but not place or time. Head exam: PRESENT: atraumatic, normocephalic Eye exam: PRESENT: conjunctiva pink, EOMI, PERRLA, other - Will not follow commands to determine extraocular movements. ABSENT: conjunctival injection, nystagmus, scleral icterus Mouth exam: PRESENT: moist Teeth exam: PRESENT: edentulous Neck exam: ABSENT: carotid bruit, JVD, lymphadenopathy, thyromegaly Respiratory exam: PRESENT: clear to auscultation major, unlabored. ABSENT: accessory muscle use, rales, rhonchi, tachypnea, wheezes Cardiovascular exam: PRESENT: RRR. ABSENT: diastolic murmur, rubs, systolic murmur Pulses: PRESENT: +1 pedal pulses bilateral GI/Abdominal exam: PRESENT: normal bowel sounds, soft. ABSENT: distended, guarding, mass, organolmegaly, rebound, tenderness Gentrourinary exam: PRESENT: indwelling catheter - Required for adequate I's and O's with hypernatremia. Condom catheter was ineffective Extremities exam: PRESENT: pedal edema Musculoskeletal exam: ABSENT: deformity, dislocation Neurological exam: PRESENT: alert - Intermittently, altered, awake, oriented to person - Oriented to oriented to person place, other - Ana coma scale is 4-4-6. ABSENT: oriented to place, oriented to time, oriented to situation, motor sensory deficit Psychiatric exam: PRESENT: appropriate affect Focused psych exam: PRESENT: psychomotor agitation, restlessness Skin exam: PRESENT: dry, intact, warm. ABSENT: cyanosis, rash Tubes/Lines: PRESENT: Other - Lock Laboratory/Radiographs Laboratory Results: 07/31/19 06:04 07/31/19 06:04 07/31/19 07/31/19 07/31/19 06:04 06:04 13:00 WBC 9.4 RBC 5.00 Hgb 14.6 D Hct 43.2 MCV 86 MCH 29.3 MCHC 33.9 RDW 15.2 H Plt Count 114 L Seg Neutrophils % 70.3 Carbonic Acid 1.11 HCO3/H2CO3 Ratio 21:1 ABG pH 7.43 ABG pCO2 36.9 ABG pO2 92.5 ABG HCO3 23.7 ABG O2 Saturation 97.3 ABG Base Excess -0.2 FiO2 2L Sodium 137.1 Potassium 3.4 L Chloride 103 Carbon Dioxide 31 H Anion Gap 3 L BUN 40 H Creatinine 1.31 H Est GFR ( Amer) > 60 Glucose 152 H Calcium 8.6 Phosphorus 3.7 Magnesium 2.1 Total Bilirubin 1.0 AST 25 Alkaline Phosphatase 57 Total Protein 5.0 L Albumin 2.6 L 07/28/19 07/28/19 07/28/19 13:35 13:35 17:30 Creatine Kinase 134 Troponin I 0.050 0.052 NT-Pro-B Natriuret Pep 07/29/19 07/30/19 07/30/19 03:06 03:28 08:50 Creatine Kinase Troponin I Cancelled 0.079 Cancelled NT-Pro-B Natriuret Pep 770 H 07/30/19 09:40 Creatine Kinase Troponin I 0.048 NT-Pro-B Natriuret Pep Impressions: Abdomen/Pelvis CT 07/28/19 00:00 IMPRESSION: 3 mm stone distal left ureter. Mild hydronephrosis. Chest X-Ray 07/30/19 00:00 IMPRESSION: Right IJ line tip in the SVC. No pneumothorax. Head CT 07/30/19 00:00 IMPRESSION: CHRONIC CHANGES OF ATROPHY AND MICROVASCULAR ISCHEMIA. NO ACUTE PROCESS. NO ENHANCING LESIONS. EVIDENCE OF ACUTE STROKE: NO. All labs, radiographs, diagnostic studies and EKGs were personally reviewed: Yes In addition, reports of radiographic and diagnostic studies were read: Yes Assessment and Plan - Diagnosis (1) Acute metabolic encephalopathy Is this a current diagnosis for this admission?: Yes (2) Delirium due to another medical condition, acute, hyperactive Is this a current diagnosis for this admission?: Yes (3) Hypertensive emergency without congestive heart failure Is this a current diagnosis for this admission?: Yes (4) Atrial fibrillation with rapid ventricular response Is this a current diagnosis for this admission?: Yes Plan: Intermittent (5) Acute kidney injury superimposed on CKD Is this a current diagnosis for this admission?: Yes (6) Alteration in anticoagulation Is this a current diagnosis for this admission?: Yes Plan: Related to plavix. Multiple areas of eccymosis (7) Hypertensive encephalopathy Is this a current diagnosis for this admission?: Yes (8) Leukocytosis Qualifiers: Leukocytosis type: unspecified Qualified Code(s): D72.829 - Elevated white blood cell count, unspecified Is this a current diagnosis for this admission?: Yes Plan: Much Improved (9) Polycythemia Is this a current diagnosis for this admission?: Yes (10) Pericardial cyst Is this a current diagnosis for this admission?: Yes (11) Chronic pain disorder Is this a current diagnosis for this admission?: Yes (12) Sleep apnea in adult Is this a current diagnosis for this admission?: Yes Plan Summary: 07.31.19: Patient's mental status has become more lucid and speech communicative. To share where he is from originally without hesitation and tell us his 's name. He is unable to disclose where he is currently however when prompted he guesses a hospital. His blood pressure has under better control and he has not received any continuous drips for blood pressure control. Intermittently throughout the day he has episodes of excessive lethargy. We have done ABGs which have not shown hypercarbia as the source. No evidence of active tonic-clonic seizures and when he is lethargic he is fully arousable and follows commands. I am impressed that his white count and hemoglobin hematocrit are dramatically improved. We are concerned that he is a hyperviscosity syndrome that appears to be transiently related to significant dehydration. This dehydration with acute kidney injury may have caused this hypertensive urgency which has led to PRES syndrome. We have been concerned about an autoimmune process, TRAVELING STOREKEEPER vasculitis, encephalitis, all of which have been essentially ruled out except for the encephalitis. Given the waxing and waning course of his mental status we reache d out to his son who states that his mental status has been declining and that he is quite forgetful and at times inappropriate and answers. It is difficult to tell whether what we are seeing is a new baseline but certainly it is different according to his . He was able to tolerate a diet earlier today but then became lethargic. I have ordered an EEG to rule out non-convulsive seizures. In an attempt to elucidate his situation with attempted an LP today. The last dose of Plavix appears to have been 5 days ago and he has been off heparin with a PTT which is normal. Unfortunately due to his significant altered anatomy of his back we were unsuccessful. Will attempt with IR. The consensus would be to look for paraneoplastic and or encephalitis. Given his recent renal failure and his course which does not appear to be encephalitis I have held acyclovir. If his mental status continues to worsen or his lethargy then we would be forced to provide acyclovir with IV fluids to prevent renal failure. I am positive that his clinical status has definitely improved with the improvement in his white count and hemoglobin hematocrit. He has a rubourus face which which would suggest polycythemia. Most episodes of hyperviscosity are temporized with fluids and this appears to have been what has happened. Continue IV therapy. Continued supportive care. Discussed with and son Parish who lives in [place]. Low up on [place] 2 studies as well as autoimmune studies and vasculitis studies. CT scan negative for vasculitis. Hold heparin for the time being so that an LP can be done in the morning. Atrial fibrillation is now controlled and he is in sinus rhythm. As far as his delirium I have ordered Haldol to determine if this will control it especially with psychomotor agitation. At times when the nurses are ready to give it he becomes sedate without medications. I am concerned that we may be seeing a unrecognized dementia in the face of acute illness leading to ICU psychosis. We will continue to monitor and protect the patient. Remains DNR/DNI 07.30.19: The patient's neurological condition has improved but he is still intermittently confused. There is some suspicion that he has been imbibing alcohol based on some of his answers. We will order CAT scan of the brain today with contrast. I have excepted responsibility for worsening renal function ever we are unable to obtain MRI it is essential to determine whether an arteriopathy with vasculitis exists. We are unable to perform LP because of his recent use of Plavix and his anatomy. 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 Even the fact that he has atrial fibrillation, his blood is clotting quickly, and he has polycythemia we will start heparin therapy for the time being. His atrial fibrillation is controlled and rate however if it becomes problemati c, given the inability to obtain Cardene, he may be better suited with a non- dihydropyridine calcium channel gregorio. Will obtain echocardiogram as well to look at LV function and valve function. 07.29.19: The patient's encephalopathy has improved however he is extremely lethargic. The states that this is not his normal baseline status. This does not appear to be an infectious related phenomena in that patient is awake and aware when aroused from his lethargic state. On examination he does have an appearance of a right facial droop and some degree of decreased strength in the right side. I am concerned that this represents a dominant hemisphere ischemic event however the initial CAT scan was negative. We are attempting to obtain an MRI however patient has a pain pump in his back and we are unable to find a model number or type. Patient's appears to be somewhat confused about where this was placed. Although we do not feel that this is an infectious etiology we have entertained the possibility for the need of a spinal tap. He has a difficult anatomy secondary to his back surgery and arthritis. In itself that would not be a preclusion however he has taken Plavix and aspirin within the last 2 days which would be contraindicated. He has an elevation in white blood cell count but also in hemoglobin and hematocrit suggestive of extreme hemoconcentration. We have adjusted IV fluids. He is not on any mood altering drugs or narcotics to suggest that this may be a prolonged metabolism with his renal failure. There is no thrombocytopenia to consider TTP or ITP as a change in status. We will order a repeat CT scan in a 48-hour interval especially if his neurological status worsens. His noticeable sleep apnea I ordered an ABG and a CPAP. We will continue to monitor his BMP and his CBC. Did receive a moderate amount of fluids and I would have expected his hemoglobin hematocrit to improve. I am concerned that he has developed polycythemia rubra and the neurological manifestations and hypertension may be related to this as a secondary effect. We have set it up erythropoietin studies, sed rate to rule out vasculitis as well as ANCA. May need to consider using steroids but will await another 24 hours to see if there is a change. There does not appear to be seizures as a cause for his change. Critical Time Critical Time (minutes): 70 Level of Care: ICU -: 1. The care of a critical patient is a dynamic process. This note is a represe ntative synopsis but static in nature. The timeframe for treatments given in order is not necessarily the actual time these treatments may have been done. 2. This patient requires critical care secondary to ongoing requirements for therapy not offered or safe outside the critical care environment. Transfer to a lower level of care will result in altered life or limb morbidity and mortality. 3. Multidisciplinary rounds completed. 4. ABCDE bundle addressed.
--- NOTE | 2019-07-31 16:04 | Operative Report ---
Bedside Procedure - History of Present Illness History of Present Illness: Mr. Dominique is an 84-year-old male with a past medical history of hypertension, CAD status post 4 coronary stents in the past, CKD, and optic nerve stroke in 2001 who presented to [facility] with altered mental status and hypertensive emergency. Mrs. Dominique found her on the floor next to his recliner after last seeing him normal at approximately 11 PM last night. His ambulation and strength has progressively gotten worse though is not acute, for which he could not make it to the bedroom and decided to sleep in the recliner overnight. Patient's denies Mr. Dominique having dementia but does report he has some recent mild memory difficulty. Patient has reportedly had intermittent nausea and vomiting the past 2 days for which his describes it as brown, but denies a coffee-ground appearance in the emesis. He is also had generalized abdominal pain that is not acute for which he does not guard his abdomen, have rebound tenderness, or display signs of peritonitis. CT head reveals no acute stroke, though there is chronic microvascular ischemia and atrophy. Chest x-ray is without an acute intrapulmonary process. LP done to r/o encephalitis and/or paraneoplastic syndrome Indication for Procedure: encephalopathy Date: 07/31/19 Provider: NILSA SALDAÑA - Lumbar Puncture Lumbar puncture Time completed: 16:01 Consent obtained: Yes Lumbar puncture pre-procedure: Sterile PPE donned, Chloraprep applied, Sterile drapes applied Patient position: Lying Anesthetic type: 1% Lidocaine mL's of anesthetic: 4 Amount/type of drainage: None Number of attempts: 6 - Some attempts to define anatomy Complications: Yes - Unable to access. Aborted. Significant osteophyte formation Notes: 07/31/19 16:02 Unable to access CSF. EBL: 1 cc during lidocaine injection 07/31/19 16:03
[2019-07-31] MEDS ORDERED: 1/2 NORMAL SALINE 1,000 ML IV PRN (16:34)
[2019-07-31 17:01] LABS: POTASSIUM 3.7 mmol/L (3.6-5.0)
[2019-07-31] MEDS ORDERED: HYDRALAZINE HCL INJ/PF 20 MG/1 ML SDV IV ONE (21:52)
[2019-07-31] MEDS ORDERED: HYDRALAZINE HCL INJ/PF 20 MG/1 ML SDV ONE (21:53)
[2019-07-31] MEDS ORDERED: RISPERIDONE 0.25 MG TABLET PO SCH (22:00)
[2019-07-31] MEDS ORDERED: ATORVASTATIN CALCIUM 20 MG TABLET PO SCH (22:00)
[2019-08-01 04:59] LABS: APPEARANCE,URINE CLEAR; BILIRUBIN,URINE NEGATIVE (NEGATIVE); COLOR,URINE YELLOW; GLUCOSE, URINE NEGATIVE (NEGATIVE); KETONES,URINE TRACE mg/dL (NEGATIVE); LEUKOCYTE ESTERASE,URINE TRACE (NEGATIVE); NITRITE,URINE NEGATIVE (NEGATIVE); PROTEIN,URINE 30 mg/dL (NEGATIVE); URINE SPECIFIC GRAVITY 1.012; UROBILINOGEN,URINE NEGATIVE mg/dL (<2.0)
[2019-08-01 05:21] LABS: ANION GAP 7 (5-19); BLOOD UREA NITROGEN 28 mg/dL (7-20); CALCIUM 8.7 mg/dL (8.4-10.2); CARBON DIOXIDE 26 mmol/L (22-30); CHLORIDE 106 mmol/L (98-107); GLUCOSE 100 mg/dL (75-110); PHOSPHORUS 3.1 mg/dL (2.5-4.5); POTASSIUM 3.7 mmol/L (3.6-5.0)
[2019-08-01 06:10] LABS: HEMATOCRIT 41.8 % (37.9-51.0); MEAN CORPUSCULAR HGB CONC 33.5 g/dL (32.0-36.0); MEAN CORPUSCULAR VOLUME 87 fl (80-97); PLATELET COUNT 126 10^3/uL (150-450); RED BLOOD COUNT 4.82 10^6/uL (4.35-5.55); WHITE BLOOD COUNT 10.6 10^3/uL (4.0-10.5)
--- NOTE | 2019-08-01 11:27 | PDOC CRITICAL CARE PROG REPORT ---
General Date:: 08/01/19 - Critical Care Attending Progress Note Resuscitation Status: Do Not Resuscitate - Do Not Intubate Medical Power of Service Planner: Events in the past 12 to 24 Hours:: Pt recieved EEG today. Is lethargic. Reason for ICU Addmission:: Hypertensive Encephalopathy with hemodynamic instability Physical Exam Vital Signs: Temp Pulse Resp BP Pulse Ox 99.1 F 73 18 156/90 H 95 08/01/19 05:52 08/01/19 08:00 08/01/19 10:18 08/01/19 10:18 08/01/19 10:17 Intake & Output 07/31/19 08/01/19 08/02/19 06:59 06:59 06:59 Intake Total 1183 1052 Output Total 900 2275 300 Balance 283 -1223 -300 Weight 89.8 kg 86.7 kg Weight/Height Weight 86.7 kg Height 5 ft 9 in General appearance: PRESENT: no acute distress, other - lethargic Head exam: PRESENT: atraumatic, normocephalic Respiratory exam: PRESENT: unlabored, other - coarse breath sounds Cardiovascular exam: PRESENT: RRR GI/Abdominal exam: PRESENT: soft, other - NTND Gentrourinary exam: PRESENT: indwelling catheter Extremities exam: PRESENT: +1 edema Laboratory/Radiographs Laboratory Results: 08/01/19 04:31 08/01/19 04:31 07/29/19 07/31/19 07/31/19 08:44 13:00 16:25 WBC RBC Hgb Hct MCV MCH MCHC RDW Plt Count Carbonic Acid 1.11 HCO3/H2CO3 Ratio 21:1 ABG pH 7.43 ABG pCO2 36.9 ABG pO2 92.5 ABG HCO3 23.7 ABG O2 Saturation 97.3 ABG Base Excess -0.2 FiO2 2L Sodium Potassium 3.7 Chloride Carbon Dioxide Anion Gap BUN Creatinine Est GFR ( Amer) Glucose Lactic Acid Calcium Phosphorus Magnesium 2.2 Erythropoietin 6.1 Urine Color Urine Appearance Urine pH Ur Specific [place] Urine Protein Urine Glucose (UA) Urine Ketones Urine Blood Urine Nitrite Ur Leukocyte Esterase Urine WBC (Auto) Urine RBC (Auto) 07/31/19 08/01/19 08/01/19 18:00 04:31 04:31 WBC 10.6 H RBC 4.82 Hgb 14.0 Hct 41.8 MCV 87 MCH 29.0 MCHC 33.5 RDW 15.0 H Plt Count 126 L Carbonic Acid HCO3/H2CO3 Ratio ABG pH ABG pCO2 ABG pO2 ABG HCO3 ABG O2 Saturation ABG Base Excess FiO2 Sodium 139.3 Potassium 3.7 Chloride 106 Carbon Dioxide 26 Anion Gap 7 BUN 28 H Creatinine 1.12 Est GFR ( Amer) > 60 Glucose 100 Lactic Acid 0.7 Calcium 8.7 Phosphorus 3.1 Magnesium 2.1 Erythropoietin Urine Color Urine Appearance Urine pH Ur Specific [place] Urine Protein Urine Glucose (UA) Urine Ketones Urine Blood Urine Nitrite Ur Leukocyte Esterase Urine WBC (Auto) Urine RBC (Auto) 08/01/19 04:31 WBC RBC Hgb Hct MCV MCH MCHC RDW Plt Count Carbonic Acid HCO3/H2CO3 Ratio ABG pH ABG pCO2 ABG pO2 ABG HCO3 ABG O2 Saturation ABG Base Excess FiO2 Sodium Potassium Chloride Carbon Dioxide Anion Gap BUN Creatinine Est GFR ( Amer) Glucose Lactic Acid Calcium Phosphorus Magnesium Erythropoietin Urine Color YELLOW Urine Appearance CLEAR Urine pH 5.0 Ur Specific [place] 1.012 Urine Protein 30 H Urine Glucose (UA) NEGATIVE Urine Ketones TRACE H Urine Blood LARGE H Urine Nitrite NEGATIVE Ur Leukocyte Esterase TRACE H Urine WBC (Auto) 8 Urine RBC (Auto) 68 07/28/19 07/28/19 07/28/19 13:35 13:35 17:30 Creatine Kinase 134 Troponin I 0.050 0.052 NT-Pro-B Natriuret Pep 07/29/19 07/30/19 07/30/19 03:06 03:28 08:50 Creatine Kinase Troponin I Cancelled 0.079 Cancelled NT-Pro-B Natriuret Pep 770 H 07/30/19 09:40 Creatine Kinase Troponin I 0.048 NT-Pro-B Natriuret Pep Impressions: Abdomen/Pelvis CT 07/28/19 00:00 IMPRESSION: 3 mm stone distal left ureter. Mild hydronephrosis. Chest X-Ray 07/30/19 00:00 IMPRESSION: Right IJ line tip in the SVC. No pneumothorax. Head CT 07/30/19 00:00 IMPRESSION: CHRONIC CHANGES OF ATROPHY AND MICROVASCULAR ISCHEMIA. NO ACUTE PROCESS. NO ENHANCING LESIONS. EVIDENCE OF ACUTE STROKE: NO. Assessment and Plan - Diagnosis (1) Acute metabolic encephalopathy Is this a current diagnosis for this admission?: Yes (2) Hypertensive encephalopathy Is this a current diagnosis for this admission?: Yes (3) Atrial fibrillation with rapid ventricular response Is this a current diagnosis for this admission?: Yes (4) Acute kidney injury superimposed on CKD Is this a current diagnosis for this admission?: Yes Plan Summary: Assessment: 84 yo man with metabolic encephalopathy hypertensive urgency, afib, MIKHAIL/CKD Plan: 1. Respiratory: On NC. Has h/o PORSCHE. Will check ABG 2. CV: hypertensive urgency, resolved. SBP in the 150s. Afib, resolved. In NSR. Continue current BP meds. Echo pending. Off antiplatelets and anticoagulation fo r LP 3. Neuro: metabolic encephalopathy, ?PRES. EEG today. LP by IR tmw. Unable to get MRI due to presence of nerve stimulator. 4. Renal: MIKHAIL, resolving. Cr is 1.12 5. Nutrition: cardiac diet 6. Endocrine: monitoring blood sugars 7. Prophylaxis: pharmacologic DVT prophylaxis on hold for LP 8. Ethis: pt is DNR 9. Continue to monitor in ICU Critical Time Critical Time (minutes): 35 Level of Care: ICU -: 1. The care of a critical patient is a dynamic process. This note is a manufacturing sales representative synopsis but static in nature. The timeframe for treatments given in order is not necessarily the actual time these treatments may have been done. 2. This patient requires critical care secondary to ongoing requirements for therapy not offered or safe outside the critical care environment. Transfer to a lower level of care will result in altered life or limb morbidity and mortality. 3. Multidisciplinary rounds completed. 4. ABCDE bundle addressed.
[2019-08-01 11:51] LABS: ARTERIAL BLOOD BASE EXCESS 2.1 mmol/L; ARTERIAL BLOOD H2CO3 1.01 mmol/L (1.05-1.35); ARTERIAL BLOOD HCO3 24.9 mmol/L (20-24); ARTERIAL BLOOD O2 SATURATION 97.3 % (94-98); ARTERIAL BLOOD PCO2 33.4 mmHg (35-45); ARTERIAL BLOOD PH 7.49 (7.35-7.45); ARTERIAL BLOOD TOTAL CO2 25.9 mmol/L (23-27)
[2019-08-01 11:57] LABS: PROTHROMBIN TIME 14.2 SEC (11.4-15.4)
[2019-08-01 12:20] LABS: ARTERIAL BLOOD FIO2 6L
[2019-08-01] MEDS ORDERED: PHARMACY COMMUNICATION ORDER MC NR (14:15)
[2019-08-01] MEDS: TAMSULOSIN HCL 0.4 MG CAP.SR.24H PO SCH (14:40)
[2019-08-01] MEDS: MULTIVITAMIN TABLET PO SCH (14:40)
[2019-08-01] MEDS: ATENOLOL 50 MG TABLET PO SCH (14:41)
[2019-08-01] MEDS: BENAZEPRIL HCL 20 MG TABLET PO SCH (14:41)
--- NOTE | 2019-08-01 15:29 | RADIOLOGY REPORT (SQ) ---
EXAM DESCRIPTION: KUB/ABDOMEN (SINGLE VIEW) COMPLETED DATE/TIME: 08/01/2019 2:54 pm REASON FOR STUDY: NGT placement COMPARISON: None. NUMBER OF VIEWS: One view. TECHNIQUE: Supine radiographic image of the abdomen acquired. LIMITATIONS: None. FINDINGS: BOWEL GAS PATTERN: Normal bowel gas pattern. No dilated loops. CALCIFICATIONS: No suspicious calcifications. SOFT TISSUES: No gross mass or suggestion of organomegaly. HARDWARE: NG tube is present. Approximately 7 cm of the tube appears to be in the stomach. Neurosti mulator is present. BONES: No acute fracture. No worrisome bone lesions. OTHER: No other significant finding. IMPRESSION: NG tube placement. TECHNICAL DOCUMENTATION: JOB ID: [id number] [employer] [place]- All Rights Reserved Reading location - IP/workstation name: [email or web address]
[2019-08-01] MEDS ORDERED: LABETALOL HCL INJ 20 MG/4 ML DISP.SYRIN IV PRN (18:40)
[2019-08-01] MEDS ORDERED: HYDRALAZINE HCL INJ/PF 20 MG/1 ML SDV ONE (18:42)
--- NOTE | 2019-08-01 19:20 | NEURO WORKBENCH EEG REPORT ---
EEG Report Patient: Shawn Dominique ID: [id number] Referring Doctor: Hemanth Mosley Date: 08/01/2019 Reason for study: Evaluate Epileptiform activity, AMS Medications: Atenolol, Lipitor, Lotensin, MVI, Risperidone, Flomax History: This is a 84 year old male with a history of HTN, CAD x/p 4 coronary stents, CKD, optic nerve stroke in 2001, hypercholesterolemia who presented with altered mental status and hypertensive emergency. This EEG was requested for evaluation of altered mental status. EEG Interpretation This EEG was predominantly during sleep, with transient periods of reactivity to lower amplitude faster frequencies associated with movement but no wakefulness recorded. There were no apparent spontaneous eye openings or closings, but the alarm field technician manually opened and closed the patients eyes multiple times. There is no posterior dominant rhythm present. The patient does not appear clinically arousable from the current state with minor stimulation. The backgound EEG shows diffuse polymorphic low amplitude 4-6 Hz theta activity with intermixed polymorphic 1-3 Hz delta activity. Vertex waves of better morphology in the left central region were present, as were K-complexes. There were no convincing sleep spindles present. There were periods of minor amplitude attenuation over the right central region compared to the left central region. Photic stimulation was done and minimal photic driving was not noted at 7 Hz but was more suppressed over the right side. There low amplitude myogenic artifact at times, predominantly in the bitemporal regions (right more commonly than left) which partially obscured the recording. There was no epileptiform activity (meaning no sharp waves or spikes), and there were no seizures noted. The EKG typically showed a regular rhythm with rates typically in the 60-90 range, but there were periods showing an irregular rhythm on the one channel EKG. EEG Impression This is an abnormal EEG and consistent with diffuse cerebral dysfunction which is non-specific for etiology. Likely considerations would include diffuse hypoxic injury, toxic-metabolic derangements, drug intoxication, or a post-ictal state. There were no EEG findings consistent with epilepsy, but if there is strong concern for clinical or sub-clinical seizure activity then long-term EEG monitoring would be advised or additional repeat routine EEGs if long-term monitoring is not available. There were minor asymmetries noted including periods of minor amplitude attenuation over the right central region, less prominent vertex waves over the right central region, and less prominent photic driving noted in the right occipital region. Consideration should be given to an MRI of the brain to evaluate for any structural abnormalities in the right hemisphere. Periods of an irregular cardiac rhythm were noted, and further cardiac evaluation is recommended. In addition, the patient should be screened for obstructive sleep apnea as snoring and periods of apnea were noted by the tech (obstructive sleep apnea can also exacerbate cardiac arrhythmias). INTERPRETING NEUROLOGIST: Edison Rebolledo MD Board certified by the [place] [employer] in Neurology, Clinical Neurophysiology, and Sleep Medicine [facility]ITAL[facility]es[facility]
[2019-08-01] MEDS: ATORVASTATIN CALCIUM 20 MG TABLET NG SCH (21:41)
[2019-08-01] MEDS ORDERED: RISPERIDONE 0.25 MG TABLET NG SCH (22:00)
--- NOTE | 2019-08-01 22:43 | XCELERA REPORT ---
[address] [address] Transthoracic Echocardiogram Report Name: SCOT CLEARY Age: 84 yrs Gender: Male : 1935 Patient Status: Inpatient Patient Location: ICU^2A Study Date: 08/01/2019 02:05 PM Height: 69 in Weight: 197 lb BSA: 2.1 m2 Procedure: A two-dimensional transthoracic echocardiogram with color flow and Doppler was performed. Study Quality: Poor. The study was technically difficult with many images being suboptimal in quality. The study was technically limited with all images being suboptimal in quality. Reason For Study: LV hypertrophy with severe hypertension History: LV hypertrophy with severe hypertension. Ordering Physician: NILSA SALDAÑA Performed By: Blanca Mari Interpretation Summary LV hypertrophy with severe hypertension There is normal left ventricular wall thickness. LV EF is 65% Left ventricular systolic function is normal. Doppler measurements suggest impaired left ventricular relaxation, which is associated with grade I/IV or mild diastolic dysfunction The left ventricular wall motion is normal. There is no thrombus. Cannot assess ASD ,VSD , or PFO. There is no mitral valve stenosis. There is no evidence of mitral valve prolapse. There is no vegetation seen on the mitral valve. There is a trace amount of mitral regurgitation There is no aortic valve stenosis No aortic regurgitation is present. The tricuspid valve is not well visualized secondary to technical limitations annot assess TR or RVSP. Not visualised. The right ventricle is not well visualized secondary to technical limitations Right atrium not well visualized secondary to technical limitations The left atrial size is normal. The aortic root is not well visualized but is probably normal size. The inferior vena cava appeared normal and decreased > 50% with respiration (RAP 5-10 mmHg) There is no pericardial effusion. MMode/2D Measurements & Calculations RVDd: 2.8 cm LVIDd: 4.9 cm FS: 37.1 % Ao root diam: 3.1 cm IVSd: 1.1 cm LVIDs: 3.1 cm EDV(Teich): 111.2 ml Ao root area: 7.3 cm2 LVPWd: 1.0 cm ESV(Teich): 36.9 ml EF(Teich): 66.8 % Doppler Measurements & Calculations MV E max luca: MV dec slope: Ao V2 max: LV V1 max P.1 cm/sec 252.3 cm/sec2 145.7 cm/sec 3.5 mmHg MV A max luca: MV dec time: 0.23 sec Ao max PG: LV V1 max: 117.4 cm/sec 8.5 mmHg 93.6 cm/sec MV E/A: 0.49 Left Ventricle The left ventricle is normal in size. There is normal left ventricular wall thickness. LV EF is 65%. Left ventricular systolic function is normal. Doppler measurements suggest impaired left ventricular relaxation, which is associated with grade I/IV or mild diastolic dysfunction. The left ventricular wall motion is normal. There is no thrombus. Cannot assess ASD ,VSD , or PFO. Right Ventricle The right ventricle is not well visualized secondary to technical limitations. Atria Right atrium not well visualized secondary to technical limitations. The left atrial size is normal. Mitral Valve There is no evidence of mitral valve prolapse. There is no vegetation seen on the mitral valve. There is no mitral valve stenosis. There is a trace amount of mitral regurgitation. Aortic Valve There is no aortic valve stenosis. No aortic regurgitation is present. Tricuspid Valve The tricuspid valve is not well visualized secondary to technical limitations. annot assess TR or RVSP. Pulmonic Valve Not visualised. Great Vessels The aortic root is not well visualized but is probably normal size. The inferior vena cava appeared normal and decreased > 50% with respiration (RAP 5-10 mmHg). Effusions There is no pericardial effusion. : NILSA SALDAÑA Lakshmi
[2019-08-02 03:29] LABS: ABSOLUTE EOSINOPHILS # (AUTO) 0.2 10^3/uL (0.0-0.6); ABSOLUTE LYMPHOCYTES (AUTO) 1.3 10^3/uL (0.5-4.7); ABSOLUTE MONOCYTES (AUTO) 1.6 10^3/uL (0.1-1.4); ABSOLUTE NEUT (AUTO) 7.7 10^3/uL (1.7-8.2); BASOPHILS % (AUTO) 0.1 % (0-2); EOSINOPHILS % (AUTO) 2.1 % (0-6); HEMATOCRIT 42.5 % (37.9-51.0); HEMOGLOBIN 14.3 g/dL (13.5-17.0); MEAN CORPUSCULAR HEMOGLOBIN 29.3 pg (27.0-33.4); MEAN CORPUSCULAR HGB CONC 33.7 g/dL (32.0-36.0); MEAN CORPUSCULAR VOLUME 87 fl (80-97); MONOCYTES % (AUTO) 15.1 % (3-13); PLATELET COUNT 137 10^3/uL (150-450); RED BLOOD COUNT 4.89 10^6/uL (4.35-5.55); RED CELL DISTRIBUTION WIDTH 14.6 % (11.5-14.0); SEGMENTED NEUTROPHILS % (AUTO) 70.7 % (42-78); TOTAL CELLS COUNTED % (AUTO) 100 %; WHITE BLOOD COUNT 10.9 10^3/uL (4.0-10.5)
[2019-08-02] MEDS: HYDRALAZINE HCL INJ/PF 20 MG/1 ML SDV IV PRN ×2 (03:39→12:26)
[2019-08-02 03:57] LABS: ANION GAP 9 (5-19); BLOOD UREA NITROGEN 26 mg/dL (7-20); CARBON DIOXIDE 25 mmol/L (22-30); CHLORIDE 106 mmol/L (98-107); GLUCOSE 94 mg/dL (75-110)
[2019-08-02] MEDS ORDERED: DEXTROSE 50%-WATER 25 GM/50 ML DISP.SYRIN IV ONE ×2 (04:24→04:32)
[2019-08-02] MEDS: DEXTROSE 5%-1/2 NORMAL SALINE 1,000 ML IV PRN ×2 (04:30→23:13)
--- NOTE | 2019-08-02 08:42 | RADIOLOGY REPORT (SQ) ---
EXAM DESCRIPTION: CAROTID DOPPLER COMPLETED DATE/TIME: 08/01/2019 8:24 pm REASON FOR STUDY: hypertenion, altered mental status COMPARISON: None. TECHNIQUE: Grayscale ultrasound, Doppler velocity and spectra, and color Doppler images acquired of the extra-cranial carotid and vertebral arteries. Images stored on PACS. LIMITATIONS: None. FINDINGS: RIGHT CAROTID Right-side was not performed due to indwelling triple-lumen catheter and dressing overlying and neck. LEFT CAROTID CCA Velocities: Velocities are slightly elevated in the distal left common carotid artery. ICA Velocities Peak systolic 124 cm/s. End diastolic 14 cm/s. Proximal ICA/CCA peak systolic ratio 0.9. There is soft plaque noted in the carotid bulb and proximal ICA. The vessel is tortuous. No focal s tenosis demonstrated on grayscale images. VERTEBRAL ARTERIES: Antegrade flow on the left. Right side was not evaluated. SUBCLAVIAN ARTERIES: No finding. OTHER: No other significant finding. IMPRESSION: No hemodynamically significant stenosis on the left. Right side was not performed as de scribed above. COMMENT: Quality ID #195: Velocity criteria are extrapolated from the diameter data as defined by t he Society of Radiologists in Ultrasound Consensus Conference. Radiology 2003: 229; 340-346. TECHNICAL DOCUMENTATION: JOB ID: [id number] [employer]- All Rights Reserved Reading location - IP/workstation name: [email or web address]
[2019-08-02] MEDS: BENAZEPRIL HCL 20 MG TABLET NG SCH (10:36)
[2019-08-02] MEDS: TAMSULOSIN HCL 0.4 MG CAP.SR.24H PO SCH (10:36)
[2019-08-02] MEDS: ATENOLOL 50 MG TABLET NG SCH (10:37)
--- NOTE | 2019-08-02 11:14 | PDOC CRITICAL CARE PROG REPORT ---
General Date:: 08/02/19 - Critical Care Attending Note Resuscitation Status: Do Not Resuscitate - Do Not Intubate Medical Power of Credit Intern: Events in the past 12 to 24 Hours:: Pt continues to have alternating periods of alertness and confusion. NGT tube inserted yesterday b/c pt too lethrgic to take po. Reason for ICU Addmission:: Hypertensive Encephalopathy with hemodynamic instability Physical Exam Vital Signs: Temp Pulse Resp BP Pulse Ox 99.0 F 74 15 177/75 H 100 08/02/19 10:00 08/02/19 10:00 08/02/19 10:16 08/02/19 10:16 08/02/19 10:16 Intake & Output 08/01/19 08/02/19 08/03/19 06:59 06:59 06:59 Intake Total 1052 692 Output Total 2275 1610 290 Balance -1223 -918 -290 Weight 86.7 kg 88.2 kg Weight/Height Weight 88.2 kg Height 5 ft 9 in General appearance: PRESENT: no acute distress, well-developed, well-nourished, other - alternating episoded b/w wakefullness and lethargy Head exam: PRESENT: atraumatic, other Respiratory exam: PRESENT: unlabored, other - coarse breath sounds throughout Cardiovascular exam: PRESENT: RRR GI/Abdominal exam: PRESENT: soft, other - non tender, non-distended Gentrourinary exam: PRESENT: indwelling catheter Extremities exam: PRESENT: +1 edema Neurological exam: PRESENT: altered Laboratory/Radiographs Laboratory Results: 08/02/19 03:12 08/02/19 03:12 08/01/19 08/02/19 08/02/19 11:40 03:12 03:12 WBC 10.9 H RBC 4.89 Hgb 14.3 Hct 42.5 MCV 87 MCH 29.3 MCHC 33.7 RDW 14.6 H Plt Count 137 L Seg Neutrophils % 70.7 Carbonic Acid 1.01 L HCO3/H2CO3 Ratio 24:1 ABG pH 7.49 H ABG pCO2 33.4 L ABG pO2 87.0 ABG HCO3 24.9 H ABG O2 Saturation 97.3 ABG Base Excess 2.1 FiO2 6L Sodium 139.5 Potassium 4.0 Chloride 106 Carbon Dioxide 25 Anion Gap 9 BUN 26 H Creatinine 1.00 Est GFR ( Amer) > 60 Glucose 94 Calcium 9.0 07/28/19 07/28/19 07/28/19 13:35 13:35 17:30 Creatine Kinase 134 Troponin I 0.050 0.052 NT-Pro-B Natriuret Pep 07/29/19 07/30/19 07/30/19 03:06 03:28 08:50 Creatine Kinase Troponin I Cancelled 0.079 Cancelled NT-Pro-B Natriuret Pep 770 H 07/30/19 09:40 Creatine Kinase Troponin I 0.048 NT-Pro-B Natriuret Pep Impressions: Abdomen/Pelvis CT 07/28/19 00:00 IMPRESSION: 3 mm stone distal left ureter. Mild hydronephrosis. Chest X-Ray 07/30/19 00:00 IMPRESSION: Right IJ line tip in the SVC. No pneumothorax. Head CT 07/30/19 00:00 IMPRESSION: CHRONIC CHANGES OF ATROPHY AND MICROVASCULAR ISCHEMIA. NO ACUTE PROCESS. NO ENHANCING LESIONS. EVIDENCE OF ACUTE STROKE: NO. Carotid Doppler Study 08/01/19 00:00 IMPRESSION: No hemodynamically significant stenosis on the left. Right side was not performed as described above. KUB X-Ray 08/01/19 00:00 IMPRESSION: NG tube placement. Assessment and Plan - Diagnosis (1) Acute metabolic encephalopathy Is this a current diagnosis for this admission?: Yes (2) Hypertensive encephalopathy Is this a current diagnosis for this admission?: Yes (3) Atrial fibrillation with rapid ventricular response Is this a current diagnosis for this admission?: Yes (4) Acute kidney injury superimposed on CKD Is this a current diagnosis for this admission?: Yes Plan Summary: Assessment: 84 yo man with metabolic encephalopathy hypertensive urgency, afib, MIKHAIL/CKD Plan: 1. Respiratory: stable NC. PORSCHE. Continue bipap qhs 2. CV: hypertension. Continue atenolol and lotensin. Prn labetalol and hydralazine. Echo reviewed. Off antiplatelets and anticoagulation for LP 3. Neuro: metabolic encephalopathy, ?PRES. EEG was negative for seizures. LP by IR today. Unable to get MRI due to presence of nerve stimulator. Carotid dopplers done yesterday, unable to eval right carotid due to presence of right IJ TLC. Will get CTA of head and neck today. 4. Renal: MIKHAIL, resolved. Cr is 1.0 5. Nutrition: NPO. NG tube inserted. Will start tube feeds. 6. Endocrine: monitoring blood sugars 7. Prophylaxis: pharmacologic DVT prophylaxis on hold for LP 8. Ethis: pt is DNR 9. Continue to monitor in ICU Critical Time Critical Time (minutes): 0 Level of Care: ICU -: 1. The care of a critical patient is a dynamic process. This note is a phone representative synopsis but static in nature. The timeframe for treatments given in order is not necessarily the actual time these treatments may have been done. 2. This patient requires critical care secondary to ongoing requirements for therapy not offered or safe outside the critical care environment. Transfer to a lower level of care will result in altered life or limb morbidity and mortality. 3. Multidisciplinary rounds completed. 4. ABCDE bundle addressed.
--- NOTE | 2019-08-02 12:01 | RADIOLOGY REPORT (SQ) ---
EXAM DESCRIPTION: CTA NECK COMPLETED DATE/TIME: 08/02/2019 11:33 am REASON FOR STUDY: encephalopathy, eval for stenosis COMPARISON: None. TECHNIQUE: Axial dynamic scanning technique with dynamic contrast enhancement through the extra-aircraft pneudraulics repairer nial carotid and vertebral arteries. Multiplanar reconstruction. 3-D MIPS and Volume-rendered imag es acquired at the workstation and saved to PACS. Images are reviewed in soft tissue, bone, lung w indows. All CT scanners at this facility use dose modulation, iterative reconstruction, and/or weight based d osing when appropriate to reduce radiation dose to as low as reasonably achievable (ALARA). [facility]: Dose Right [facility]: CareDose [facility]: Dose Right [facility]: Teradose 4D [facility]: EasySize CONTRAST TYPE AND DOSE: contrast/concentration: Isovue 350.00 mg/ml; Total Contrast Delivered: 80.0 ml; Total Saline Delivered: 75.0 ml RENAL FUNCTION: BUN 26, creatinine 1.0 LIMITATIONS: None. FINDINGS: AORTIC ARCH: Normal three-vessel origin. Bilateral subclavian arteries are patent. No d issection. RIGHT CAROTIDS: The right common carotid artery is patent. There is complex plaque in the carotid bu lb and proximal ICA. With focal high-grade stenosis in the proximal ICA. The lumen is irregular. T here is soft plaque as well as calcified plaque. Distal ICA is patent. RIGHT VERTEBRAL: Patent. No dissection. LEFT CAROTIDS: Patent common, internal external carotid arteries. There is calcified plaque at the c arotid bulb and proximal ICA but no high-grade stenosis. LEFT VERTEBRAL: Patent. No dissection. OTHER: No other significant finding. OTHER: 3-D reconstructions confirm findings. IMPRESSION: Complex plaque in the right carotid bulb and proximal ICA with focal greater than 70% st enosis at the origin of the ICA best demonstrated on sagittal reconstructions. COMMENT: Quality ID #195: Measurements of distal internal carotid diameter were used as the denomina tor for stenosis measurement. TECHNICAL DOCUMENTATION: JOB ID: [id number] Quality ID # 436: Final reports with documentation of one or more dose reduction techniques (e.g., Au tomated exposure control, adjustment of the mA and/or kV according to patient size, use of iterative reconstruction technique) 2010 [employer]- All Rights Reserved Reading location - IP/workstation name: [email or web address]
[2019-08-02 12:24] LABS: GLUCOSE,CSF 66 mg/dL (40-70); PROTEIN,CSF 53 mg/dL (12-60)
[2019-08-02 12:31] LABS: APPEARANCE ALL TUBES CLEAR; COLOR ALL TUBES COLORLESS; CSF TUBE NUMBER 3
--- NOTE | 2019-08-02 12:31 | RADIOLOGY REPORT (SQ) ---
EXAM DESCRIPTION: CTA HEAD COMPLETED DATE/TIME: 08/02/2019 11:33 am REASON FOR STUDY: encephalopathy, eval for stenosis COMPARISON: CT head 07/30/2019 TECHNIQUE: Post IV contrast scanning, thin section axial imaging through the brain to evaluate the a rterial structures. Source and MIP images are saved and reviewed on PACS. Advanced 3D imaging as volume-rendering, MIPs, SSD performed? yes All CT scanners at this facility use dose modulation, iterative reconstruction, and/or weight based d osing when appropriate to reduce radiation dose to as low as reasonably achievable (ALARA). [facility]: Dose Right [facility]: CareDose [facility]: Dose Right [facility]: Teradose 4D [facility]: Deeplink CONTRAST TYPE AND DOSE: 80 mL Omnipaque 350- low osmolar. RENAL FUNCTION: BUN 26 creatinine 1 LIMITATIONS: None. FINDINGS: C[place]: The anterior, middle, posterior cerebral arteries are all patent. No ev idence of aneurysm or focal stenosis. POSTERIOR CIRCULATION: The distal vertebral arteries are patent as is the basilar artery. No aneurysm . BRAIN: No gross enhancing lesions are seen. BONES: Intact as visualized. SINUSES: No fluid or mucosal thickening. OTHER: No other significant finding. IMPRESSION: NO CTA EVIDENCE OF STENOSIS OR ANEURYSM OF THE C[place] OF [place]. TECHNICAL DOCUMENTATION: JOB ID: [id number] Quality ID # 436: Final reports with documentation of one or more dose reduction techniques (e.g., Au tomated exposure control, adjustment of the mA and/or kV according to patient size, use of iterative reconstruction technique) 2010 [employer]- All Rights Reserved Reading location - IP/workstation name: [email or web address]
[2019-08-02 12:32] LABS: RED BLOOD CELL,CSF 133 /uL (0-10); WHITE BLOOD CELL,CSF 3 /uL (0-5)
--- NOTE | 2019-08-02 13:08 | RADIOLOGY REPORT (SQ) ---
EXAM DESCRIPTION: LUMBAR PUNCTURE; FLUORO/NEEDLE PLACEMENT/SPINE COMPLETED DATE/TIME: 08/02/2019 12:13 pm; 08/02/2019 12:14 pm REASON FOR STUDY: encephalopathy; ENCEPHALOPATHY COMPARISON: None. FLUOROSCOPY TIME: 13 SECONDS OF FLUOROSCOPY WAS USED. 1 images saved to PACS. TECHNIQUE: Fluoroscopic guided lumbar puncture. LIMITATIONS: None. PROCEDURE: After written consent and assessment were obtained, the patient was brought into the fluo roscopy room and placed prone on the table. The patient's lower back was prepped in a sterile fashio n and an entry site was selected under live fluoroscopic guidance. The entry site was anesthetized wi th 1% lidocaine. A 20 gauge needle was advanced through the skin and into the thecal sac at the level of L3-L4. After approximately 13.5 ml was drained, the needle was removed and a sterile bandage was placed of the site. Specimens were sent to the lab for testing. A fluoroscopic spot image was saved to PACS confirming level access. FINDINGS: Clear CSF IMPRESSION: Lumbar puncture under fluoroscopy. No immediate complication. COMMENT: Patient medication list reviewed: Yes- Quality ID# 130:Eligible professional attests to doc umenting in the medical record they obtained, updated, or reviewed the patient's current medications. . Quality ID 145: Final reports for procedures using fluoroscopy that document radiation exposure rick deidre, or exposure time and number of fluorographic images (if radiation exposure indices are not avail able) TECHNICAL DOCUMENTATION: JOB ID: [id number] [employer]- All Rights Reserved Reading location - IP/workstation name: [email or web address] [id number]
--- NOTE | 2019-08-02 13:08 | RADIOLOGY REPORT (SQ) ---
EXAM DESCRIPTION: LUMBAR PUNCTURE; FLUORO/NEEDLE PLACEMENT/SPINE COMPLETED DATE/TIME: 08/02/2019 12:13 pm; 08/02/2019 12:14 pm REASON FOR STUDY: encephalopathy; ENCEPHALOPATHY COMPARISON: None. FLUOROSCOPY TIME: 13 SECONDS OF FLUOROSCOPY WAS USED. 1 images saved to PACS. TECHNIQUE: Fluoroscopic guided lumbar puncture. LIMITATIONS: None. PROCEDURE: After written consent and assessment were obtained, the patient was brought into the fluo roscopy room and placed prone on the table. The patient's lower back was prepped in a sterile fashio n and an entry site was selected under live fluoroscopic guidance. The entry site was anesthetized wi th 1% lidocaine. A 20 gauge needle was advanced through the skin and into the thecal sac at the level of L3-L4. After approximately 13.5 ml was drained, the needle was removed and a sterile bandage was placed of the site. Specimens were sent to the lab for testing. A fluoroscopic spot image was saved to PACS confirming level access. FINDINGS: Clear CSF IMPRESSION: Lumbar puncture under fluoroscopy. No immediate complication. COMMENT: Patient medication list reviewed: Yes- Quality ID# 130:Eligible professional attests to doc umenting in the medical record they obtained, updated, or reviewed the patient's current medications. . Quality ID 145: Final reports for procedures using fluoroscopy that document radiation exposure rick deidre, or exposure time and number of fluorographic images (if radiation exposure indices are not avail able) TECHNICAL DOCUMENTATION: JOB ID: [id number] [employer]- All Rights Reserved Reading location - IP/workstation name: [email or web address] [id number]
[2019-08-02 14:37] LABS: ALBUMIN UR 51.8 % (.); ALPHA-1-GLOBULIN URINE 2.4 % (.); ALPHA-2-GLOBULIN URINE 8.3 % (.); GAMMA GLOBULIN URINE 18.1 % (.); M-SPIKE % UR 6.8 % (Not Observ); PROTEIN TOTAL URINE 38.3 mg/dL (Not Estab.)
[2019-08-02 16:36] LABS: ANTIMYELOPEROXIDASE (MPO) AB <9.0 U/mL (0.0-9.0); CYTOPLASMIC (C-ANCA) <1:20 titer (Neg:<1:20)
[2019-08-02] MEDS: FUROSEMIDE INJ/PF 40 MG/4 ML SDV IV SCH (17:11)
[2019-08-02] MEDS: HYDRALAZINE HCL 25 MG TABLET PO SCH ×2 (17:11→21:44)
[2019-08-02] MEDS: ATORVASTATIN CALCIUM 20 MG TABLET NG SCH (21:44)
[2019-08-02] MEDS ORDERED: RINGERS SOLUTION,LACTATED 500 ML IV ONE (22:21)
[2019-08-03 04:40] LABS: ABSOLUTE EOSINOPHILS # (AUTO) 0.2 10^3/uL (0.0-0.6); ABSOLUTE LYMPHOCYTES (AUTO) 1.1 10^3/uL (0.5-4.7); ABSOLUTE MONOCYTES (AUTO) 1.8 10^3/uL (0.1-1.4); BASOPHILS % (AUTO) 0.1 % (0-2); EOSINOPHILS % (AUTO) 1.6 % (0-6); HEMATOCRIT 41.7 % (37.9-51.0); HEMOGLOBIN 13.9 g/dL (13.5-17.0); MEAN CORPUSCULAR HEMOGLOBIN 28.9 pg (27.0-33.4); MEAN CORPUSCULAR HGB CONC 33.4 g/dL (32.0-36.0); MEAN CORPUSCULAR VOLUME 87 fl (80-97); MONOCYTES % (AUTO) 14.8 % (3-13); PLATELET COUNT 151 10^3/uL (150-450); RED BLOOD COUNT 4.82 10^6/uL (4.35-5.55); RED CELL DISTRIBUTION WIDTH 14.7 % (11.5-14.0); SEGMENTED NEUTROPHILS % (AUTO) 74.5 % (42-78); TOTAL CELLS COUNTED % (AUTO) 100 %; WHITE BLOOD COUNT 12.1 10^3/uL (4.0-10.5)
[2019-08-03 04:53] LABS: BLOOD UREA NITROGEN 26 mg/dL (7-20); CALCIUM 9.1 mg/dL (8.4-10.2); GLUCOSE 118 mg/dL (75-110); POTASSIUM 3.5 mmol/L (3.6-5.0)
[2019-08-03 04:59] LABS: ANION GAP 6 (5-19); CARBON DIOXIDE 29 mmol/L (22-30); CHLORIDE 104 mmol/L (98-107)
[2019-08-03] MEDS: HYDRALAZINE HCL 25 MG TABLET PO SCH ×2 (06:56→13:36)
[2019-08-03] MEDS: FUROSEMIDE INJ/PF 40 MG/4 ML SDV IV SCH (06:56)
[2019-08-03] MEDS ORDERED: CEFEPIME 2 GM/D5W RTU 2 GM/50 ML RTUPB IV SCH (09:00)
--- NOTE | 2019-08-03 10:37 | PDOC CRITICAL CARE PROG REPORT ---
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 Is awake today, but remains confused. Reason for ICU Addmission:: Hypertensive Encephalopathy with hemodynamic instability - Medications: Medications reviewed and adjusted accordingly: Yes Physical Exam Vital Signs: Temp Pulse Resp BP Pulse Ox 98.4 F 77 16 157/61 H 100 08/03/19 07:58 08/03/19 07:58 08/03/19 07:58 08/03/19 07:58 08/03/19 07:58 Intake & Output 08/02/19 08/03/19 08/04/19 06:59 06:59 06:59 Intake Total 692 1436 Output Total 1610 3090 260 Balance -918 -1654 -260 Weight 88.2 kg 87.1 kg Weight/Height Weight 87.1 kg Height 5 ft 9 in General appearance: PRESENT: no acute distress, well-developed, well-nourished Head exam: PRESENT: atraumatic, normocephalic Respiratory exam: PRESENT: rhonchi, unlabored Cardiovascular exam: PRESENT: RRR GI/Abdominal exam: PRESENT: soft Gentrourinary exam: PRESENT: indwelling catheter Extremities exam: PRESENT: +1 edema Neurological exam: PRESENT: alert, altered, awake Laboratory/Radiographs Laboratory Results: 08/03/19 04:20 08/03/19 04:20 08/02/19 08/02/19 08/03/19 11:40 11:40 04:20 WBC RBC Hgb Hct MCV MCH MCHC RDW Plt Count Seg Neutrophils % Sodium Potassium Chloride Carbon Dioxide Anion Gap BUN Creatinine Est GFR ( Amer) Glucose Calcium Ammonia < 8.7 L TSH Fluid Tube Number 3 CSF Volume 13.0 CSF Appearance CLEAR CSF Color COLORLESS CSF WBC 3 CSF RBC 133 CSF Glucose 66 CSF Total Protein 53 08/03/19 08/03/19 08/03/19 04:20 04:20 04:20 WBC 12.1 H RBC 4.82 Hgb 13.9 Hct 41.7 MCV 87 MCH 28.9 MCHC 33.4 RDW 14.7 H Plt Count 151 Seg Neutrophils % 74.5 Sodium 138.9 Potassium 3.5 L Chloride 104 Carbon Dioxide 29 Anion Gap 6 BUN 26 H Creatinine 1.19 Est GFR ( Amer) > 60 Glucose 118 H Calcium 9.1 Ammonia TSH 0.33 L Fluid Tube Number CSF Volume CSF Appearance CSF Color CSF WBC CSF RBC CSF Glucose CSF Total Protein 07/28/19 07/28/19 07/28/19 13:35 13:35 17:30 Creatine Kinase 134 Troponin I 0.050 0.052 NT-Pro-B Natriuret Pep 07/29/19 07/30/19 07/30/19 03:06 03:28 08:50 Creatine Kinase Troponin I Cancelled 0.079 Cancelled NT-Pro-B Natriuret Pep 770 H 07/30/19 09:40 Creatine Kinase Troponin I 0.048 NT-Pro-B Natriuret Pep Impressions: Abdomen/Pelvis CT 07/28/19 00:00 IMPRESSION: 3 mm stone distal left ureter. Mild hydronephrosis. Head CT 07/30/19 00:00 IMPRESSION: CHRONIC CHANGES OF ATROPHY AND MICROVASCULAR ISCHEMIA. NO ACUTE PROCESS. NO ENHANCING LESIONS. EVIDENCE OF ACUTE STROKE: NO. Carotid Doppler Study 08/01/19 00:00 IMPRESSION: No hemodynamically significant stenosis on the left. Right side was not performed as described above. KUB X-Ray 08/01/19 00:00 IMPRESSION: NG tube placement. Guidance Fluoroscopy 08/02/19 00:00 IMPRESSION: Lumbar puncture under fluoroscopy. No immediate complication. Head CTA 08/02/19 00:00 IMPRESSION: NO CTA EVIDENCE OF STENOSIS OR ANEURYSM OF THE [place]. Lumbar Puncture 08/02/19 00:00 IMPRESSION: Lumbar puncture under fluoroscopy. No immediate complication. Neck CTA 08/02/19 00:00 IMPRESSION: Complex plaque in the right carotid bulb and proximal ICA with focal greater than 70% stenosis at the origin of the ICA best demonstrated on sagittal reconstructions. All labs, radiographs, diagnostic studies and EKGs were personally reviewed: Yes Assessment and Plan - Diagnosis (1) Acute metabolic encephalopathy Is this a current diagnosis for this admission?: Yes (2) Hypertensive encephalopathy Is this a current diagnosis for this admission?: Yes (3) Atrial fibrillation with rapid ventricular response Is this a current diagnosis for this admission?: Yes (4) Acute kidney injury superimposed on CKD Is this a current diagnosis for this admission?: Yes Plan Summary: Assessment: 84 yo man with metabolic encephalopathy hypertensive urgency, afib, MIKHAIL/CKD, right ICA stenosis Plan: 1. Respiratory: stable NC. PORSCHE. Continue bipap qhs 2. CV: hypertension. Continue atenolol and lotensin. Started on po hydralazine yesterday. s/p lasix yesterday. Prn labetalol and hydralazine. Echo reviewed. Plavix had been on hold for LP. Will resume today 3. Neuro: metabolic encephalopathy, ?PRES. EEG was negative for seizures. LP by IR 08/02. CSF HSV results pending.. Unable to get MRI due to presence of nerve stimulator. CTA of head and neck done 08/02 reveals >70% VEGA stenosis. Pt will need eval by vascular sugery. Will resume his home plavix 4. Renal: MIKHAIL. Cr has increased to 1.16. s/p lasix yesterday. Will d/c lasix 5. ID: Leukocytosis. Pt at risk for aspiration PNA. Will order CXR and check blood cultures. Will start cefepime empirically 6. Nutrition: NPO. NG tube inserted. Will start tube feeds. 7. Endocrine: monitoring blood sugars 8. Prophylaxis: pharmacologic DVT prophylaxis has been on hold for LP. Will resume later today 9. Ethis: pt is DNR 9. Pt is stable for transfer to [facility]. Critical Time Critical Time (minutes): 0 Level of Care: [facility] -: 1. The care of a critical patient is a dynamic process. This note is a membership sales representative synopsis but static in nature. The timeframe for treatments given in order is not necessarily the actual time these treatments may have been done. 2. This patient requires critical care secondary to ongoing requirements for therapy not offered or safe outside the critical care environment. Transfer to a lower level of care will result in altered life or limb morbidity and mortality. 3. Multidisciplinary rounds completed. 4. ABCDE bundle addressed.
[2019-08-03] MEDS: MULTIVITAMIN TABLET PO SCH (11:01)
[2019-08-03] MEDS: ATENOLOL 50 MG TABLET NG SCH (11:02)
[2019-08-03] MEDS: TAMSULOSIN HCL 0.4 MG CAP.SR.24H PO SCH (11:02)
[2019-08-03] MEDS: BENAZEPRIL HCL 20 MG TABLET NG SCH (11:02)
[2019-08-03 11:34] LABS: ATYPICAL PANCA <1:20 titer (Neg:<1:20)
[2019-08-03] MEDS ORDERED: CEFEPIME HCL 2 GM in DEXTROSE 5%-WATER 50 ML IV SCH (12:00)
--- NOTE | 2019-08-03 12:34 | RADIOLOGY REPORT (SQ) ---
EXAM DESCRIPTION: CHEST SINGLE VIEW COMPLETED DATE/TIME: 08/03/2019 9:36 am REASON FOR STUDY: leukocytosis, eval for PNA COMPARISON: 07/30/2019 EXAM PARAMETERS: NUMBER OF VIEWS: One view. TECHNIQUE: Single frontal radiographic view of the chest acquired. RADIATION DOSE: NA LIMITATIONS: None. FINDINGS: LUNGS AND PLEURA: No opacities, masses or pneumothorax. No pleural effusion. MEDIASTINUM AND HILAR STRUCTURES: No masses. Contour normal. HEART AND VASCULAR STRUCTURES: Heart normal in size. Normal vasculature. BONES: No acute findings. HARDWARE: Neurostimulator electrodes. Right internal jugular catheter remains in place. OTHER: No other significant finding. IMPRESSION: NO ACUTE RADIOGRAPHIC FINDING IN THE CHEST. TECHNICAL DOCUMENTATION: JOB ID: [id number] [employer]- All Rights Reserved Reading location - IP/workstation name: [email or web address]
[2019-08-03] MEDS: CEFEPIME HCL 2 GM in DEXTROSE 5%-WATER 50 ML IV SCH (13:35)
[2019-08-03] MEDS: CLOPIDOGREL BISULFATE 75 MG TABLET PO SCH (13:36)
[2019-08-03 14:52] LABS: A TYPE INFLUENZA AG NEGATIVE (NEGATIVE); B INFLUENZA AG NEGATIVE (NEGATIVE)
[2019-08-03] MEDS ORDERED: 1/2 NORMAL SALINE 1,000 ML IV PRN (15:27)
[2019-08-04] MEDS: HEPARIN SOD (PORCINE) 5,000 UNIT/ML 1 ML VIAL SUBCUT SCH ×4 (00:19→22:14)
[2019-08-04] MEDS: ATORVASTATIN CALCIUM 20 MG TABLET NG SCH ×2 (00:20→22:15)
[2019-08-04] MEDS: CEFEPIME HCL 2 GM in DEXTROSE 5%-WATER 50 ML IV SCH ×4 (00:20→22:14)
[2019-08-04] MEDS: HYDRALAZINE HCL 25 MG TABLET PO SCH ×4 (00:20→22:15)
[2019-08-04 04:32] LABS: ABSOLUTE EOSINOPHILS # (AUTO) 0.3 10^3/uL (0.0-0.6); ABSOLUTE LYMPHOCYTES (AUTO) 1.5 10^3/uL (0.5-4.7); ABSOLUTE MONOCYTES (AUTO) 1.6 10^3/uL (0.1-1.4); ABSOLUTE NEUT (AUTO) 7.7 10^3/uL (1.7-8.2); BASOPHILS % (AUTO) 0.4 % (0-2); EOSINOPHILS % (AUTO) 2.3 % (0-6); HEMATOCRIT 40.6 % (37.9-51.0); HEMOGLOBIN 13.6 g/dL (13.5-17.0); LYMPHOCYTES % (AUTO) 13.1 % (13-45); MEAN CORPUSCULAR HEMOGLOBIN 28.9 pg (27.0-33.4); MEAN CORPUSCULAR HGB CONC 33.5 g/dL (32.0-36.0); MEAN CORPUSCULAR VOLUME 86 fl (80-97); MONOCYTES % (AUTO) 14.6 % (3-13); PLATELET COUNT 164 10^3/uL (150-450); RED CELL DISTRIBUTION WIDTH 14.7 % (11.5-14.0); SEGMENTED NEUTROPHILS % (AUTO) 69.6 % (42-78); TOTAL CELLS COUNTED % (AUTO) 100 %; WHITE BLOOD COUNT 11.1 10^3/uL (4.0-10.5)
[2019-08-04 04:55] LABS: ANION GAP 7 (5-19); BLOOD UREA NITROGEN 31 mg/dL (7-20); CALCIUM 8.9 mg/dL (8.4-10.2); CARBON DIOXIDE 29 mmol/L (22-30); CHLORIDE 103 mmol/L (98-107); GLUCOSE 127 mg/dL (75-110); POTASSIUM 3.2 mmol/L (3.6-5.0)
[2019-08-04] MEDS ORDERED: POTASSIUM CHLORIDE 20 MEQ PACKET PO ONE (09:45)
--- NOTE | 2019-08-04 10:29 | PDOC CRITICAL CARE PROG REPORT ---
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 Worked with PT today. Pulled out his NG tube. Still remains confused. Was on bipap overnight. Reason for ICU Addmission:: Hypertensive Encephalopathy with hemodynamic instability Physical Exam Vital Signs: Temp Pulse Resp BP Pulse Ox 99.0 F 62 15 150/64 H 97 08/04/19 08:00 08/04/19 08:00 08/04/19 08:07 08/04/19 08:07 08/04/19 08:07 Intake & Output 08/03/19 08/04/19 08/05/19 06:59 06:59 06:59 Intake Total 1436 1000 Output Total 3090 1930 50 Balance -1654 -930 -50 Weight 87.1 kg 88 kg Weight/Height Weight 88 kg Height 5 ft 9 in General appearance: PRESENT: no acute distress, well-developed, well-nourished Head exam: PRESENT: atraumatic, normocephalic Respiratory exam: PRESENT: rhonchi, unlabored Cardiovascular exam: PRESENT: RRR GI/Abdominal exam: PRESENT: soft Gentrourinary exam: PRESENT: indwelling catheter Extremities exam: PRESENT: +1 edema Laboratory/Radiographs Laboratory Results: 08/04/19 04:24 08/04/19 04:24 08/04/19 08/04/19 04:24 04:24 WBC 11.1 H RBC 4.70 Hgb 13.6 Hct 40.6 MCV 86 MCH 28.9 MCHC 33.5 RDW 14.7 H Plt Count 164 Seg Neutrophils % 69.6 Sodium 138.7 Potassium 3.2 L Chloride 103 Carbon Dioxide 29 Anion Gap 7 BUN 31 H Creatinine 1.35 H Est GFR ( Amer) > 60 Glucose 127 H Calcium 8.9 08/02/19 11:40 Cerebral Spinal Fluid - Csf Gram Stain - Final 07/28/19 07/28/19 07/28/19 13:35 13:35 17:30 Creatine Kinase 134 Troponin I 0.050 0.052 NT-Pro-B Natriuret Pep 07/29/19 07/30/19 07/30/19 03:06 03:28 08:50 Creatine Kinase Troponin I Cancelled 0.079 Cancelled NT-Pro-B Natriuret Pep 770 H 07/30/19 09:40 Creatine Kinase Troponin I 0.048 NT-Pro-B Natriuret Pep Impressions: Abdomen/Pelvis CT 07/28/19 00:00 IMPRESSION: 3 mm stone distal left ureter. Mild hydronephrosis. Head CT 07/30/19 00:00 IMPRESSION: CHRONIC CHANGES OF ATROPHY AND MICROVASCULAR ISCHEMIA. NO ACUTE PROCESS. NO ENHANCING LESIONS. EVIDENCE OF ACUTE STROKE: NO. Carotid Doppler Study 08/01/19 00:00 IMPRESSION: No hemodynamically significant stenosis on the left. Right side was not performed as described above. KUB X-Ray 08/01/19 00:00 IMPRESSION: NG tube placement. Guidance Fluoroscopy 08/02/19 00:00 IMPRESSION: Lumbar puncture under fluoroscopy. No immediate complication. Head CTA 08/02/19 00:00 IMPRESSION: NO CTA EVIDENCE OF STENOSIS OR ANEURYSM OF THE [place]. Lumbar Puncture 08/02/19 00:00 IMPRESSION: Lumbar puncture under fluoroscopy. No immediate complication. Neck CTA 08/02/19 00:00 IMPRESSION: Complex plaque in the right carotid bulb and proximal ICA with focal greater than 70% stenosis at the origin of the ICA best demonstrated on sagittal reconstructions. Chest X-Ray 08/03/19 08:51 IMPRESSION: NO ACUTE RADIOGRAPHIC FINDING IN THE CHEST. Assessment and Plan - Diagnosis (1) Acute metabolic encephalopathy Is this a current diagnosis for this admission?: Yes (2) Hypertensive encephalopathy Is this a current diagnosis for this admission?: Yes (3) Atrial fibrillation with rapid ventricular response Is this a current diagnosis for this admission?: Yes (4) Acute kidney injury superimposed on CKD Is this a current diagnosis for this admission?: Yes Plan Summary: Assessment: 84 yo man with metabolic encephalopathy hypertensive urgency, MIKHAIL/C KD, right ICA stenosis Plan: 1. Respiratory: stable NC. PORSCHE. Continue bipap qhs 2. CV: hypertension. Continue atenolol,lotensin, hydralzine. s/p lasix 2 days ago. Prn labetalol and hydralazine. Echo reviewed. Plavix had been on hold for LP, but was resumed yesterday. Remains in sinus rhythm. 3. Neuro: metabolic encephalopathy, EEG was negative for seizures. LP by IR 08/02, negative. Unable to get MRI due to presence of nerve stimulator. CTA of head and neck done 08/02 reveals >70% VEGA stenosis. Pt will need eval by vascular sugery. 4. Vascular: new right ICA stenosis, > 70%. Will need eval by vascular surgery when more medically stable. 5. Renal: MIKHAIL. Cr has increased to 1.35. s/p lasix 2 days ago. 6. ID: Leukocytosis.CXR negative for PNA. WBC has decreased to 11. 1 today. Day 2 cefepime. Blood cultures pending. Right IJ TLC needs to be removed 7. Nutrition: NPO. NG tube inserted. On tube feeds. Speech consulted for swallowing 8. Endocrine: monitoring blood sugars 9. Prophylaxis: sq heparin 10. Ethis: pt is DNR 11. Pt is stable for transfer to [facility]. 12. at bedside. Updated on pt condition and plan of care. Critical Time Critical Time (minutes): 0 Level of Care: [facility] -: 1. The care of a critical patient is a dynamic process. This note is a kiosk sales representative synopsis but static in nature. The timeframe for treatments given in order is not necessarily the actual time these treatments may have been done. 2. This patient requires critical care secondary to ongoing requirements for therapy not offered or safe outside the critical care environment. Transfer to a lower level of care will result in altered life or limb morbidity and mortality. 3. Multidisciplinary rounds completed. 4. ABCDE bundle addressed.
[2019-08-04] MEDS: TAMSULOSIN HCL 0.4 MG CAP.SR.24H PO SCH (11:37)
[2019-08-04] MEDS: MULTIVITAMIN TABLET PO SCH (11:38)
[2019-08-04] MEDS: CLOPIDOGREL BISULFATE 75 MG TABLET PO SCH (11:38)
[2019-08-04] MEDS: BENAZEPRIL HCL 20 MG TABLET NG SCH (11:40)
[2019-08-04] MEDS: ATENOLOL 50 MG TABLET NG SCH (11:40)
[2019-08-04 13:36] LABS: A/G RATIO. 1.5 (0.7-1.7); ALBUMIN 3 2.8 g/dL (2.9-4.4); ALPHA-1-GLOBULIN 0.3 g/dL (0.0-0.4); BETA GLOBULIN 0.6 g/dL (0.7-1.3); GAMMA GLOBULINS 0.5 g/dL (0.4-1.8); IMMUNOGLOBULIN A 153 mg/dL (61-437); IMMUNOGLOBULIN G 546 mg/dL (700-1600); IMMUNOGLOBULIN M 34 mg/dL (15-143); MONOCLONAL-SPIKE Not Observed g/dL (Not Observ); PROTEIN TOTAL SERUM 4.8 g/dL (6.0-8.5)
--- NOTE | 2019-08-04 14:05 | RADIOLOGY REPORT (SQ) ---
EXAM DESCRIPTION: KUB/ABDOMEN (SINGLE VIEW) COMPLETED DATE/TIME: 08/04/2019 1:53 pm REASON FOR STUDY: NG tube placement COMPARISON: None. NUMBER OF VIEWS: One view. TECHNIQUE: Supine radiographic image of the abdomen acquired. LIMITATIONS: None. FINDINGS: Limited view the abdomen is obtained for NG tube placement. NG tube tip overlies the akilah calvin fundus. IMPRESSION: Limited view of the abdomen demonstrates NG tube in place. The tip overlies the gastric fundus. TECHNICAL DOCUMENTATION: JOB ID: [id number] [employer]- All Rights Reserved Reading location - IP/workstation name: [email or web address]
--- NOTE | 2019-08-04 15:08 | Progress Note ---
Provider Note Provider Note: 08/04/2019 Seen briefly with the at the bedside. Has been moved up from ICU today.. Does not know who the president is does not know what month it is does not know who his is would not answer questions actually. Patient falls asleep during mid sentence. Patient has pulled out his NG tube earlier today and is been re-placed and x-ray to confirm. Patient is on no narcotics no benzos, medication that would alter his mental status. I discussed this with the who says that over the last several months he has been getting more forgetful having a more difficult time ambulating as far as weakness. Seems to be more of a gradual decline as opposed to an acute episode or event Will review chart further patient may need nursing home facility for placement
[2019-08-04] MEDS: POTASSIUM CHLORIDE 20 MEQ/50 ML RTU IV SCH ×2 (15:15→18:37)
[2019-08-04] MEDS: POTASSIUM CHLORIDE 20 MEQ PACKET NG SCH (22:15)
[2019-08-05] MEDS ORDERED: HALOPERIDOL LACTATE INJ 5 MG/1 ML VIAL IV ONE (03:15)
[2019-08-05] MEDS: HYDRALAZINE HCL 25 MG TABLET PO SCH ×3 (05:21→21:37)
[2019-08-05] MEDS: CEFEPIME HCL 2 GM in DEXTROSE 5%-WATER 50 ML IV SCH ×3 (06:01→21:40)
[2019-08-05] MEDS: HEPARIN SOD (PORCINE) 5,000 UNIT/ML 1 ML VIAL SUBCUT SCH ×3 (06:02→21:40)
[2019-08-05] MEDS: CLOPIDOGREL BISULFATE 75 MG TABLET PO SCH (10:52)
[2019-08-05] MEDS: TAMSULOSIN HCL 0.4 MG CAP.SR.24H PO SCH (10:52)
[2019-08-05] MEDS: BENAZEPRIL HCL 20 MG TABLET NG SCH (10:52)
[2019-08-05] MEDS: POTASSIUM CHLORIDE 20 MEQ PACKET NG SCH ×2 (10:53→21:38)
[2019-08-05] MEDS: MULTIVITAMIN TABLET PO SCH (10:53)
[2019-08-05] MEDS: ATENOLOL 50 MG TABLET NG SCH (10:53)
[2019-08-05] MEDS: NORMAL SALINE 1000 ML 1,000 ML IV PRN (19:48)
[2019-08-05] MEDS: HYDRALAZINE HCL INJ/PF 20 MG/1 ML SDV IV PRN (20:20)
[2019-08-05] MEDS: ATORVASTATIN CALCIUM 20 MG TABLET NG SCH (21:38)
[2019-08-06] MEDS: HYDRALAZINE HCL 25 MG TABLET PO SCH ×3 (05:02→20:59)
[2019-08-06] MEDS: HEPARIN SOD (PORCINE) 5,000 UNIT/ML 1 ML VIAL SUBCUT SCH ×3 (05:42→21:11)
[2019-08-06] MEDS: CEFEPIME HCL 2 GM in DEXTROSE 5%-WATER 50 ML IV SCH ×3 (05:42→21:11)
[2019-08-06] MEDS: TAMSULOSIN HCL 0.4 MG CAP.SR.24H PO SCH (09:23)
[2019-08-06] MEDS: POTASSIUM CHLORIDE 20 MEQ PACKET NG SCH ×2 (09:24→20:59)
[2019-08-06] MEDS: CLOPIDOGREL BISULFATE 75 MG TABLET PO SCH (09:24)
[2019-08-06] MEDS: MULTIVITAMIN TABLET PO SCH (09:24)
[2019-08-06] MEDS: ATENOLOL 50 MG TABLET NG SCH (09:24)
[2019-08-06] MEDS: BENAZEPRIL HCL 20 MG TABLET NG SCH (09:24)
--- NOTE | 2019-08-06 12:41 | PDOC PROGRESS REPORT ---
Subjective Progress Note for:: 08/06/19 Reason For Visit: HYPERTENSIVE ENCEPHALOPATHY 08/04/2019 Encephalopathy of unknown origin, chronic dementia, atrial fib with RVR, acute kidney injury on chronic kidney disease Physical Exam Vital Signs: Temp Pulse Resp BP Pulse Ox 98.5 F 86 14 128/62 H 98 08/06/19 08:27 08/06/19 08:27 08/06/19 08:27 08/06/19 08:27 08/06/19 08:27 Intake & Output 08/05/19 08/06/19 08/07/19 06:59 06:59 06:59 Intake Total 1254 150 Output Total 1999 1050 Balance -746 -900 Weight 84.1 kg 89.3 kg General appearance: PRESENT: no acute distress Respiratory exam: PRESENT: clear to auscultation major. ABSENT: rales, rhonchi, wheezes Cardiovascular exam: PRESENT: RRR. ABSENT: diastolic murmur, rubs, systolic murmur Neurological exam: PRESENT: altered, other - Patient is sleeping but arouses easily. Mumbles when he tries to speak, seems to try to answer questions appropriately. Does not follow commands Psychiatric exam: PRESENT: flat affect, unusual affect Results Laboratory Results: 08/04/19 04:24 08/04/19 04:24 08/02/19 11:40 Cerebral Spinal Fluid - Csf Gram Stain - Final 08/02/19 11:40 Cerebral Spinal Fluid - Csf CSF Culture - Final NO GROWTH 3 DAYS 07/28/19 07/28/19 07/28/19 13:35 13:35 17:30 Creatine Kinase 134 Troponin I 0.050 0.052 NT-Pro-B Natriuret Pep 07/29/19 07/30/19 07/30/19 03:06 03:28 08:50 Creatine Kinase Troponin I Cancelled 0.079 Cancelled NT-Pro-B Natriuret Pep 770 H 07/30/19 09:40 Creatine Kinase Troponin I 0.048 NT-Pro-B Natriuret Pep Impressions: Abdomen/Pelvis CT 07/28/19 00:00 IMPRESSION: 3 mm stone distal left ureter. Mild hydronephrosis. Head CT 07/30/19 00:00 IMPRESSION: CHRONIC CHANGES OF ATROPHY AND MICROVASCULAR ISCHEMIA. NO ACUTE PROCESS. NO ENHANCING LESIONS. EVIDENCE OF ACUTE STROKE: NO. Carotid Doppler Study 08/01/19 00:00 IMPRESSION: No hemodynamically significant stenosis on the left. Right side was not performed as described above. Guidance Fluoroscopy 08/02/19 00:00 IMPRESSION: Lumbar puncture under fluoroscopy. No immediate complication. Head CTA 08/02/19 00:00 IMPRESSION: NO CTA EVIDENCE OF STENOSIS OR ANEURYSM OF THE [place]. Lumbar Puncture 08/02/19 00:00 IMPRESSION: Lumbar puncture under fluoroscopy. No immediate complication. Neck CTA 08/02/19 00:00 IMPRESSION: Complex plaque in the right carotid bulb and proximal ICA with focal greater than 70% stenosis at the origin of the ICA best demonstrated on sagittal reconstructions. Chest X-Ray 08/03/19 08:51 IMPRESSION: NO ACUTE RADIOGRAPHIC FINDING IN THE CHEST. KUB X-Ray 08/04/19 00:00 IMPRESSION: Limited view of the abdomen demonstrates NG tube in place. The tip overlies the gastric fundus. Assessment and Plan - Diagnosis (1) Acute kidney injury superimposed on CKD Is this a current diagnosis for this admission?: Yes (2) Acute metabolic encephalopathy Is this a current diagnosis for this admission?: Yes (3) Atrial fibrillation with rapid ventricular response Is this a current diagnosis for this admission?: Yes (4) Hypertensive encephalopathy Is this a current diagnosis for this admission?: Yes - Plan Summary Summary: 08/06/2019 Blood pressures are well controlled with systolic averaging now around 140 and diastolic around 60 Patient remains afebrile with temperatures 99 for the last 96 hours Pulse in the 70s or 80s O2 sat 98% on room air CBC shows a white count 11,100 H&H is stable at 13.6 and 40.6 Electrolytes are stable glucose around 120 Blood cultures negative x72 hours Patient had a CTA head scan done on 08/02/2019 showed no vascular abnormalities CT head scan done on showed chronic microvascular changes with atrophy Going to repeat the CT head scan today see if there is been any new appearance of ischemia Family is deciding on placement possible TPN nutrition - Time Time Spent with patient: 25-34 minutes
--- NOTE | 2019-08-06 14:59 | RADIOLOGY REPORT (SQ) ---
EXAM DESCRIPTION: CT HEAD WITHOUT COMPLETED DATE/TIME: 08/06/2019 2:43 pm REASON FOR STUDY: lethargic COMPARISON: 07/30/2019 TECHNIQUE: Axial images acquired through the brain without intravenous contrast. Images reviewed wi th bone, brain and subdural windows. Additional sagittal and coronal reconstructions were generated. Images stored on PACS. All CT scanners at this facility use dose modulation, iterative reconstruction, and/or weight based d osing when appropriate to reduce radiation dose to as low as reasonably achievable (ALARA). [facility]: Dose Right [facility]: CareDose [facility]: Dose Right [facility]: Teradose 4D [facility]: Smart ClickOn RADIATION DOSE: CT Rad equipment meets quality standard of care and radiation dose reduction techniq ues were employed. CTDIvol: 53.2 mGy. DLP: 2247 mGy-cm.mGy. LIMITATIONS: Mild limiting motion. FINDINGS: VENTRICLES: Prominent. 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 CEREBELLUM: No masses. No hemorrhage. No alteration of density. No evidence for acute infarction. EXTRAAXIAL SPACES: Age-related involutional change. No fluid collections. No masses. ORBITS AND GLOBE: No intra- or extraconal masses. Normal contour of globe without masses. CALVARIUM: No fracture. PARANASAL SINUSES: No fluid levels. SOFT TISSUES: No mass or hematoma. OTHER: No other significant finding. IMPRESSION: Chronic changes. No acute intracranial abnormality. EVIDENCE OF ACUTE STROKE: NO. TECHNICAL DOCUMENTATION: JOB ID: [id number] Quality ID # 436: Final reports with documentation of one or more dose reduction techniques (e.g., Au tomated exposure control, adjustment of the mA and/or kV according to patient size, use of iterative reconstruction technique) 2010 [employer]- All Rights Reserved Reading location - IP/workstation name: [email or web address]
[2019-08-06] MEDS: NORMAL SALINE 1000 ML 1,000 ML IV PRN (15:48)
[2019-08-06] MEDS ORDERED: DEXTROSE 40% GEL 15 GM TUBE PO PRN ×2 (18:14)
[2019-08-06] MEDS ORDERED: GLUCAGON,HUMAN RECOMB 1 MG INJ SUBCUT PRN (18:14)
[2019-08-06] MEDS ORDERED: DEXTROSE 50%-WATER 25 GM/50 ML DISP.SYRIN IV PRN ×2 (18:14)
[2019-08-06 19:21] LABS: INTERNATIONAL RATION (INR) 1.18; PROTHROMBIN TIME 15.1 SEC (11.4-15.4)
[2019-08-06 19:22] LABS: PARTIAL THROMBOPLASTIN TIME 37.9 SEC (23.5-35.8)
[2019-08-06 19:23] LABS: ABSOLUTE BASOPHILS # (AUTO) 0.1 10^3/uL (0.0-0.2); ABSOLUTE EOSINOPHILS # (AUTO) 0.1 10^3/uL (0.0-0.6); ABSOLUTE LYMPHOCYTES (AUTO) 1.6 10^3/uL (0.5-4.7); ABSOLUTE MONOCYTES (AUTO) 1.3 10^3/uL (0.1-1.4); ABSOLUTE NEUT (AUTO) 12.7 10^3/uL (1.7-8.2); BASOPHILS % (AUTO) 0.6 % (0-2); EOSINOPHILS % (AUTO) 0.6 % (0-6); LYMPHOCYTES % (AUTO) 10.2 % (13-45); MEAN CORPUSCULAR HGB CONC 33.4 g/dL (32.0-36.0); MEAN CORPUSCULAR VOLUME 87 fl (80-97); MONOCYTES % (AUTO) 8.4 % (3-13); PLATELET COUNT 230 10^3/uL (150-450); RED BLOOD COUNT 3.68 10^6/uL (4.35-5.55); RED CELL DISTRIBUTION WIDTH 14.7 % (11.5-14.0); SEGMENTED NEUTROPHILS % (AUTO) 80.2 % (42-78); TOTAL CELLS COUNTED % (AUTO) 100 %; WHITE BLOOD COUNT 15.9 10^3/uL (4.0-10.5)
[2019-08-06 19:25] LABS: HEMOGLOBIN 10.7 g/dL (13.5-17.0)
[2019-08-06 19:41] LABS: ALBUMIN 2.5 g/dL (3.5-5.0); ALKALINE PHOSPHATASE 63 U/L (38-126); ANION GAP 9 (5-19); ASPARTATE AMINO TRANSFERASE 34 U/L (17-59); BILIRUBIN,DIRECT 0.4 mg/dL (0.0-0.4); BILIRUBIN,TOTAL 0.7 mg/dL (0.2-1.3); BLOOD UREA NITROGEN 62 mg/dL (7-20); CALCIUM 8.9 mg/dL (8.4-10.2); CARBON DIOXIDE 20 mmol/L (22-30); CHLORIDE 116 mmol/L (98-107); GLUCOSE 121 mg/dL (75-110)
[2019-08-06] MEDS ORDERED: PANTOPRAZOLE SODIUM 40 MG VIAL IV ONE (20:33)
[2019-08-06] MEDS: NORMAL SALINE 100 ML with PANTOPRAZOLE SODIUM 80 MG IV PRN ×2 (20:41)
[2019-08-06] MEDS: ATORVASTATIN CALCIUM 20 MG TABLET NG SCH (20:59)
[2019-08-07] MEDS: HYDRALAZINE HCL 25 MG TABLET PO SCH ×3 (05:10→21:11)
[2019-08-07] MEDS: CEFEPIME HCL 2 GM in DEXTROSE 5%-WATER 50 ML IV SCH ×3 (05:45→21:04)
[2019-08-07] MEDS: HEPARIN SOD (PORCINE) 5,000 UNIT/ML 1 ML VIAL SUBCUT SCH ×3 (05:45→21:05)
[2019-08-07] MEDS ORDERED: PANTOPRAZOLE SODIUM 40 MG VIAL IV ONE (05:50)
[2019-08-07] MEDS: NORMAL SALINE 100 ML with PANTOPRAZOLE SODIUM 80 MG IV PRN ×4 (05:52→17:41)
[2019-08-07 06:25] LABS: HEMATOCRIT 26.5 % (37.9-51.0); HEMOGLOBIN 8.8 g/dL (13.5-17.0); MEAN CORPUSCULAR HEMOGLOBIN 28.9 pg (27.0-33.4); MEAN CORPUSCULAR HGB CONC 33.4 g/dL (32.0-36.0); MEAN CORPUSCULAR VOLUME 87 fl (80-97); PLATELET COUNT 195 10^3/uL (150-450); RED BLOOD COUNT 3.06 10^6/uL (4.35-5.55); RED CELL DISTRIBUTION WIDTH 14.7 % (11.5-14.0); WHITE BLOOD COUNT 13.7 10^3/uL (4.0-10.5)
[2019-08-07] MEDS ORDERED: NORMAL SALINE 250 ML IV PRN ×2 (07:22)
[2019-08-07] MEDS ORDERED: FUROSEMIDE INJ/PF 20 MG/2 ML SDV IV PRN (07:22)
[2019-08-07] MEDS: NORMAL SALINE 1000 ML 1,000 ML IV PRN (09:56)
[2019-08-07] MEDS: TAMSULOSIN HCL 0.4 MG CAP.SR.24H PO SCH (11:35)
[2019-08-07] MEDS: CLOPIDOGREL BISULFATE 75 MG TABLET PO SCH (11:35)
[2019-08-07] MEDS: POTASSIUM CHLORIDE 20 MEQ PACKET NG SCH ×2 (11:35→21:12)
[2019-08-07] MEDS: MULTIVITAMIN TABLET PO SCH (11:35)
[2019-08-07] MEDS: ATENOLOL 50 MG TABLET NG SCH (11:35)
[2019-08-07] MEDS: BENAZEPRIL HCL 20 MG TABLET NG SCH (11:35)
[2019-08-07] MEDS ORDERED: DEXTROSE 40% GEL 15 GM TUBE PO PRN (13:30)
[2019-08-07] MEDS ORDERED: DEXTROSE 40% GEL 15 GM TUBE X 2 PO PRN (13:30)
[2019-08-07] MEDS ORDERED: GLUCAGON,HUMAN RECOMB 1 MG INJ IM PRN (13:30)
[2019-08-07] MEDS ORDERED: DEXTROSE 50%-WATER SYRINGE 12.5 GM/25 ML DOSE IV PRN (13:30)
[2019-08-07] MEDS ORDERED: DEXTROSE 50%-WATER SYRINGE 25 GM/50 ML DOSE IV PRN (13:30)
[2019-08-07] MEDS: DEXTROSE 5%-WATER 1000 ML 1,000 ML IV PRN (14:11)
[2019-08-07] MEDS: INSULIN LISPRO 100 UNIT/ML 3 ML VIAL SUBCUT SCH (18:29)
[2019-08-07] MEDS: ATORVASTATIN CALCIUM 20 MG TABLET NG SCH (21:11)
[2019-08-07] MEDS: HYDRALAZINE HCL INJ/PF 20 MG/1 ML SDV IV PRN (23:52)
[2019-08-08] MEDS: DEXTROSE 5%-WATER 1000 ML 1,000 ML IV PRN ×2 (00:33→10:50)
[2019-08-08] MEDS: INSULIN LISPRO 100 UNIT/ML 3 ML VIAL SUBCUT SCH ×4 (03:53→19:30)
[2019-08-08] MEDS: HEPARIN SOD (PORCINE) 5,000 UNIT/ML 1 ML VIAL SUBCUT SCH ×3 (05:33→21:09)
[2019-08-08] MEDS: CEFEPIME HCL 2 GM in DEXTROSE 5%-WATER 50 ML IV SCH ×3 (05:34→21:09)
[2019-08-08] MEDS: HYDRALAZINE HCL 25 MG TABLET PO SCH ×3 (05:35→21:11)
[2019-08-08] MEDS: NORMAL SALINE 100 ML with PANTOPRAZOLE SODIUM 80 MG IV PRN ×4 (05:35→18:23)
[2019-08-08] MEDS: TAMSULOSIN HCL 0.4 MG CAP.SR.24H PO SCH (10:44)
[2019-08-08] MEDS: BENAZEPRIL HCL 20 MG TABLET NG SCH (10:44)
[2019-08-08] MEDS: ATENOLOL 50 MG TABLET NG SCH (10:45)
[2019-08-08] MEDS: MULTIVITAMIN TABLET PO SCH (10:45)
[2019-08-08] MEDS: CLOPIDOGREL BISULFATE 75 MG TABLET PO SCH (10:45)
[2019-08-08] MEDS: POTASSIUM CHLORIDE 20 MEQ PACKET NG SCH ×2 (10:45→21:11)
[2019-08-08 11:37] LABS: HSV SOURCE CSF
--- NOTE | 2019-08-08 16:15 | RADIOLOGY REPORT (SQ) ---
EXAM DESCRIPTION: PICC INSERTION; FLUORO/CV PLACEMENT; U/S GUIDE FOR VASCULAR ACCESS COMPLETED DATE/TIME: 08/08/2019 2:27 pm REASON FOR STUDY: TPN; IV ACCESS COMPARISON: None. FLUOROSCOPY TIME: 20 seconds. 1 images saved to PACS. TECHNIQUE: Fluoroscopic and ultrasound guided PICC placement. LIMITATIONS: None. PROCEDURE: After written consent and assessment were obtained, the patient was brought into the fluo roscopy room and placed supine on the table. Ultrasound evaluation of potential access sites were per formed. After successfully identifying a patent left basilic vein, the left arm was prepped and drape d in a sterile fashion along with the ultrasound probe. The entry site was anesthetized with 1% lidoc leanne. A 21 gauge 7 cm needle was advanced through the skin and into the basilic vein under live ultra sound guidance. An ultrasound image was saved to PACS confirming access site. A .018 guide wire was then inserted through the needle and into the venous system. The needle was then removed and an 11 b lade scalpel was used to make a 1cm skin incision. A 5 fr peel-away sheath was advanced over the wir e and into the venous system. A measurement was then made using the existing wire and live fluoroscop ic guidance. The wire was then removed and trimmed. The PICC was advanced through the peel-away sheat h and into the venous system. The peel-away sheath was removed and the catheter was adhered to the pa tients arm with a stat lock. The catheter was then aspirated and flushed and a sterile bandage was pl aced over the access site. A fluoroscopic spot image was saved to PACS confirming the catheter tip w ithin the superior vena cava. IMPRESSION: SUCCESSFUL PLACEMENT OF A 5 FR DUAL LUMEN 42 CM PICC IN THE LEFT BASILIC VEIN. COMMENT: Patient medication list reviewed: Yes- Quality ID# 130:Eligible professional attests to doc umenting in the medical record they obtained, updated, or reviewed the patient's current medications. . Quality ID 145: Final reports for procedures using fluoroscopy that document radiation exposure rick deidre, or exposure time and number of fluorographic images (if radiation exposure indices are not avail able) Quality ID #76: The patient was prepped and draped using maximum sterile barrier technique including cap, mask, sterile gown, sterile gloves, a large sterile sheet, hand hygiene, and 2% Chlorhexidine fo r cutaneous antisepsis. When ultrasound is used, sterile ultrasound techniques are followed requiring sterile gel and sterile probes. TECHNICAL DOCUMENTATION: JOB ID: [id number] [employer]- All Rights Reserved rev-12/25 Reading location - IP/workstation name: [email or web address]
[2019-08-08] MEDS ORDERED: NORMAL SALINE 10 ML SDV (AFTER EACH USE) IV PRN (17:30)
--- NOTE | 2019-08-08 17:35 | PDOC PROGRESS REPORT ---
Subjective Progress Note for:: 08/08/19 Reason For Visit: HYPERTENSIVE ENCEPHALOPATHY 08/08/2019 Encephalopathy, acute on chronic kidney disease, atrial fib, hypertension, Physical Exam Vital Signs: Temp Pulse Resp BP Pulse Ox 97.4 F 74 19 153/60 H 100 08/08/19 11:48 08/08/19 14:00 08/08/19 11:48 08/08/19 11:48 08/08/19 11:48 Intake & Output 08/07/19 08/08/19 08/09/19 06:59 06:59 06:59 Intake Total 1192 3224 1050 Output Total 600 1600 400 Balance 592 1624 650 Weight 87.1 kg 86.8 kg General appearance: PRESENT: no acute distress Respiratory exam: PRESENT: clear to auscultation major. ABSENT: rales, rhonchi, wheezes Cardiovascular exam: PRESENT: RRR. ABSENT: diastolic murmur, rubs, systolic murmur Neurological exam: PRESENT: altered, other - Patient does not answer any questions patient smiles and groans and grunts and tries to speak but only mumbles Psychiatric exam: PRESENT: flat affect, unusual affect Results Laboratory Results: 08/07/19 06:11 08/06/19 18:35 08/03/19 10:30 Blood Blood Culture - Final NO GROWTH IN 5 DAYS 08/03/19 09:33 Blood Blood Culture - Final NO GROWTH IN 5 DAYS 07/28/19 07/28/19 07/28/19 13:35 13:35 17:30 Creatine Kinase 134 Troponin I 0.050 0.052 NT-Pro-B Natriuret Pep 07/29/19 07/30/19 07/30/19 03:06 03:28 08:50 Creatine Kinase Troponin I Cancelled 0.079 Cancelled NT-Pro-B Natriuret Pep 770 H 07/30/19 09:40 Creatine Kinase Troponin I 0.048 NT-Pro-B Natriuret Pep Impressions: Abdomen/Pelvis CT 07/28/19 00:00 IMPRESSION: 3 mm stone distal left ureter. Mild hydronephrosis. Carotid Doppler Study 08/01/19 00:00 IMPRESSION: No hemodynamically significant stenosis on the left. Right side was not performed as described above. Head CTA 08/02/19 00:00 IMPRESSION: NO CTA EVIDENCE OF STENOSIS OR ANEURYSM OF THE [place]. Lumbar Puncture 08/02/19 00:00 IMPRESSION: Lumbar puncture under fluoroscopy. No immediate complication. Neck CTA 08/02/19 00:00 IMPRESSION: Complex plaque in the right carotid bulb and proximal ICA with focal greater than 70% stenosis at the origin of the ICA best demonstrated on sagittal reconstructions. Chest X-Ray 08/03/19 08:51 IMPRESSION: NO ACUTE RADIOGRAPHIC FINDING IN THE CHEST. KUB X-Ray 08/04/19 00:00 IMPRESSION: Limited view of the abdomen demonstrates NG tube in place. The tip overlies the gastric fundus. Head CT 08/06/19 12:41 IMPRESSION: Chronic changes. No acute intracranial abnormality. EVIDENCE OF ACUTE STROKE: NO. Guidance Fluoroscopy 08/08/19 00:00 IMPRESSION: SUCCESSFUL PLACEMENT OF A 5 FR DUAL LUMEN 42 CM PICC IN THE LEFT BASILIC VEIN. Interventional Vascular Procedure 08/08/19 00:00 IMPRESSION: SUCCESSFUL PLACEMENT OF A 5 FR DUAL LUMEN 42 CM PICC IN THE LEFT BASILIC VEIN. PICC Line Insertion 08/08/19 00:00 IMPRESSION: SUCCESSFUL PLACEMENT OF A 5 FR DUAL LUMEN 42 CM PICC IN THE LEFT BASILIC VEIN. Assessment and Plan - Diagnosis (1) Acute kidney injury superimposed on CKD Is this a current diagnosis for this admission?: Yes (2) Acute metabolic encephalopathy Is this a current diagnosis for this admission?: Yes (3) Atrial fibrillation with rapid ventricular response Is this a current diagnosis for this admission?: Yes (4) Hypertensive encephalopathy Is this a current diagnosis for this admission?: Yes - Plan Summary Summary: 08/06/2019 Blood pressures are well controlled with systolic averaging now around 140 and diastolic around 60 Patient remains afebrile with temperatures 99 for the last 96 hours Pulse in the 70s or 80s O2 sat 98% on room air CBC shows a white count 11,100 H&H is stable at 13.6 and 40.6 Electrolytes are stable glucose around 120 Blood cultures negative x72 hours Patient had a CTA head scan done on 08/02/2019 showed no vascular abnormalities CT head scan done on showed chronic microvascular changes with atrophy Going to repeat the CT head scan today see if there is been any new appearance of ischemia Family is deciding on placement possible TPN nutrition 08/07/2019 Family has decided to go ahead with a PICC line for TPN This will be done on 08/08/2019 Labs will be rechecked tomorrow 08/08/2019 Patient appears to be a long term facility patient Patient only smiles or mumbles when spoken to. This is no change from the last several days - Time Time Spent with patient: 25-34 minutes
--- NOTE | 2019-08-08 17:36 | PDOC PROGRESS REPORT ---
Subjective Progress Note for:: 08/07/19 Reason For Visit: HYPERTENSIVE ENCEPHALOPATHY 08/07/2019 Currently encephalopathic, potentially from hypertensive. He came and his systolic was up as high as 230 and diastolic as high as 122 Physical Exam Vital Signs: Temp Pulse Resp BP Pulse Ox 97.8 F 79 13 136/49 H 98 08/07/19 10:45 08/07/19 10:45 08/07/19 10:45 08/07/19 10:45 08/07/19 10:45 Intake & Output 08/06/19 08/07/19 08/08/19 06:59 06:59 06:59 Intake Total 150 1192 1050 Output Total 1050 600 Balance -621 670 1909 Weight 89.3 kg 87.1 kg General appearance: PRESENT: no acute distress Respiratory exam: PRESENT: clear to auscultation major. ABSENT: rales, rhonchi, wheezes Cardiovascular exam: PRESENT: RRR. ABSENT: diastolic murmur, rubs, systolic murmur Neurological exam: PRESENT: altered Psychiatric exam: PRESENT: unusual affect Results Laboratory Results: 08/07/19 06:11 08/06/19 18:35 08/06/19 08/06/19 08/06/19 18:00 18:35 18:35 WBC 15.9 H RBC 3.68 L Hgb 10.7 L D Hct 32.0 L MCV 87 MCH 29.0 MCHC 33.4 RDW 14.7 H Plt Count 230 Seg Neutrophils % 80.2 H Sodium 144.6 Potassium 4.0 Chloride 116 H Carbon Dioxide 20 L Anion Gap 9 BUN 62 H Creatinine 2.00 H Est GFR ( Amer) 39 L Glucose 121 H Calcium 8.9 Total Bilirubin 0.7 AST 34 Alkaline Phosphatase 63 Total Protein 5.0 L Albumin 2.5 L Stool Occult Blood POSITIVE Blood Type Antibody Screen 08/07/19 08/07/19 06:11 07:35 WBC 13.7 H RBC 3.06 L Hgb 8.8 L Hct 26.5 L MCV 87 MCH 28.9 MCHC 33.4 RDW 14.7 H Plt Count 195 Seg Neutrophils % Sodium Potassium Chloride Carbon Dioxide Anion Gap BUN Creatinine Est GFR ( Amer) Glucose Calcium Total Bilirubin AST Alkaline Phosphatase Total Protein Albumin Stool Occult Blood Blood Type O POSITIVE Antibody Screen NEGATIVE 07/28/19 07/28/19 07/28/19 13:35 13:35 17:30 Creatine Kinase 134 Troponin I 0.050 0.052 NT-Pro-B Natriuret Pep 07/29/19 07/30/19 07/30/19 03:06 03:28 08:50 Creatine Kinase Troponin I Cancelled 0.079 Cancelled NT-Pro-B Natriuret Pep 770 H 07/30/19 09:40 Creatine Kinase Troponin I 0.048 NT-Pro-B Natriuret Pep Impressions: Abdomen/Pelvis CT 07/28/19 00:00 IMPRESSION: 3 mm stone distal left ureter. Mild hydronephrosis. Carotid Doppler Study 08/01/19 00:00 IMPRESSION: No hemodynamically significant stenosis on the left. Right side was not performed as described above. Guidance Fluoroscopy 08/02/19 00:00 IMPRESSION: Lumbar puncture under fluoroscopy. No immediate complication. Head CTA 08/02/19 00:00 IMPRESSION: NO CTA EVIDENCE OF STENOSIS OR ANEURYSM OF THE [place]. Lumbar Puncture 08/02/19 00:00 IMPRESSION: Lumbar puncture under fluoroscopy. No immediate complication. Neck CTA 08/02/19 00:00 IMPRESSION: Complex plaque in the right carotid bulb and proximal ICA with focal greater than 70% stenosis at the origin of the ICA best demonstrated on s agittal reconstructions. Chest X-Ray 08/03/19 08:51 IMPRESSION: NO ACUTE RADIOGRAPHIC FINDING IN THE CHEST. KUB X-Ray 08/04/19 00:00 IMPRESSION: Limited view of the abdomen demonstrates NG tube in place. The tip overlies the gastric fundus. Head CT 08/06/19 12:41 IMPRESSION: Chronic changes. No acute intracranial abnormality. EVIDENCE OF ACUTE STROKE: NO. Assessment and Plan - Diagnosis (1) Acute kidney injury superimposed on CKD Is this a current diagnosis for this admission?: Yes (2) Acute metabolic encephalopathy Is this a current diagnosis for this admission?: Yes (3) Atrial fibrillation with rapid ventricular response Is this a current diagnosis for this admission?: Yes (4) Hypertensive encephalopathy Is this a current diagnosis for this admission?: Yes - Plan Summary Summary: 08/06/2019 Blood pressures are well controlled with systolic averaging now around 140 and diastolic around 60 Patient remains afebrile with temperatures 99 for the last 96 hours Pulse in the 70s or 80s O2 sat 98% on room air CBC shows a white count 11,100 H&H is stable at 13.6 and 40.6 Electrolytes are stable glucose around 120 Blood cultures negative x72 hours Patient had a CTA head scan done on 08/02/2019 showed no vascular abnormalities CT head scan done on showed chronic microvascular changes with atrophy Going to repeat the CT head scan today see if there is been any new appearance of ischemia Family is deciding on placement possible TPN nutrition
--- NOTE | 2019-08-08 17:40 | PDOC PROGRESS REPORT ---
Subjective Progress Note for:: 08/08/19 Reason For Visit: HYPERTENSIVE ENCEPHALOPATHY Physical Exam Vital Signs: Temp Pulse Resp BP Pulse Ox 97.4 F 74 19 153/60 H 100 08/08/19 11:48 08/08/19 14:00 08/08/19 11:48 08/08/19 11:48 08/08/19 11:48 Intake & Output 08/07/19 08/08/19 08/09/19 06:59 06:59 06:59 Intake Total 1192 3224 1050 Output Total 600 1600 400 Balance 592 1624 650 Weight 87.1 kg 86.8 kg General appearance: PRESENT: no acute distress Respiratory exam: PRESENT: clear to auscultation major. ABSENT: rales, rhonchi, wheezes Cardiovascular exam: PRESENT: RRR. ABSENT: diastolic murmur, rubs, systolic murmur Neurological exam: PRESENT: altered Psychiatric exam: PRESENT: unusual affect Results Laboratory Results: 08/07/19 06:11 08/06/19 18:35 08/03/19 10:30 Blood Blood Culture - Final NO GROWTH IN 5 DAYS 08/03/19 09:33 Blood Blood Culture - Final NO GROWTH IN 5 DAYS 07/28/19 07/28/19 07/28/19 13:35 13:35 17:30 Creatine Kinase 134 Troponin I 0.050 0.052 NT-Pro-B Natriuret Pep 07/29/19 07/30/19 07/30/19 03:06 03:28 08:50 Creatine Kinase Troponin I Cancelled 0.079 Cancelled NT-Pro-B Natriuret Pep 770 H 07/30/19 09:40 Creatine Kinase Troponin I 0.048 NT-Pro-B Natriuret Pep Impressions: Abdomen/Pelvis CT 07/28/19 00:00 IMPRESSION: 3 mm stone distal left ureter. Mild hydronephrosis. Carotid Doppler Study 08/01/19 00:00 IMPRESSION: No hemodynamically significant stenosis on the left. Right side was not performed as described above. Head CTA 08/02/19 00:00 IMPRESSION: NO CTA EVIDENCE OF STENOSIS OR ANEURYSM OF THE [place]. Lumbar Puncture 08/02/19 00:00 IMPRESSION: Lumbar puncture under fluoroscopy. No immediate complication. Neck CTA 08/02/19 00:00 IMPRESSION: Complex plaque in the right carotid bulb and proximal ICA with foc al greater than 70% stenosis at the origin of the ICA best demonstrated on sagittal reconstructions. Chest X-Ray 08/03/19 08:51 IMPRESSION: NO ACUTE RADIOGRAPHIC FINDING IN THE CHEST. KUB X-Ray 08/04/19 00:00 IMPRESSION: Limited view of the abdomen demonstrates NG tube in place. The tip overlies the gastric fundus. Head CT 08/06/19 12:41 IMPRESSION: Chronic changes. No acute intracranial abnormality. EVIDENCE OF ACUTE STROKE: NO. Guidance Fluoroscopy 08/08/19 00:00 IMPRESSION: SUCCESSFUL PLACEMENT OF A 5 FR DUAL LUMEN 42 CM PICC IN THE LEFT BASILIC VEIN. Interventional Vascular Procedure 08/08/19 00:00 IMPRESSION: SUCCESSFUL PLACEMENT OF A 5 FR DUAL LUMEN 42 CM PICC IN THE LEFT BASILIC VEIN. PICC Line Insertion 08/08/19 00:00 IMPRESSION: SUCCESSFUL PLACEMENT OF A 5 FR DUAL LUMEN 42 CM PICC IN THE LEFT BASILIC VEIN. Assessment and Plan - Diagnosis (1) Acute kidney injury superimposed on CKD Is this a current diagnosis for this admission?: Yes (2) Acute metabolic encephalopathy Is this a current diagnosis for this admission?: Yes (3) Atrial fibrillation with rapid ventricular response Is this a current diagnosis for this admission?: Yes (4) Hypertensive encephalopathy Is this a current diagnosis for this admission?: Yes - Plan Summary Summary: 08/06/2019 Blood pressures are well controlled with systolic averaging now around 140 and diastolic around 60 Patient remains afebrile with temperatures 99 for the last 96 hours Pulse in the 70s or 80s O2 sat 98% on room air CBC shows a white count 11,100 H&H is stable at 13.6 and 40.6 Electrolytes are stable glucose around 120 Blood cultures negative x72 hours Patient had a CTA head scan done on 08/02/2019 showed no vascular abnormalities CT head scan done on showed chronic microvascular changes with atrophy Going to repeat the CT head scan today see if there is been any new appearance of ischemia Family is deciding on placement possible TPN nutrition 08/07/2019 Family has decided to go ahead with a PICC line for TPN This will be done on 08/08/2019 Labs will be rechecked tomorrow 08/08/2019 Patient appears to be a [facility] facility patient Patient only smiles or mumbles when spoken to. This is no change from the last several days 08/08/2019 Temperature 98.8 pulse between 65 and 80 blood pressure 156/53 White count 13,700 Chemistry panel from today is pending last set of electrolytes showed a slightly elevated BUN of 62 creatinine of 2.0 Patient is having PICC line placed today we will start TPN, this is been ordered. Patient's family has agreed to placement at [facility] Patient's paperwork has been submitted to [facility] today Patient's primary complaint is encephalopathy secondary to hypertensive crisis - Time Time Spent with patient: 25-34 minutes
[2019-08-08 18:40] LABS: INTERNATIONAL RATION (INR) 1.19; PROTHROMBIN TIME 15.2 SEC (11.4-15.4)
[2019-08-08 18:41] LABS: PARTIAL THROMBOPLASTIN TIME 43.1 SEC (23.5-35.8)
[2019-08-08 18:56] LABS: ANION GAP 8 (5-19); BLOOD UREA NITROGEN 37 mg/dL (7-20); CARBON DIOXIDE 23 mmol/L (22-30); CHLORIDE 111 mmol/L (98-107); GLUCOSE 97 mg/dL (75-110); POTASSIUM 3.6 mmol/L (3.6-5.0)
[2019-08-08] MEDS: NORMAL SALINE 10 ML SDV (SCHEDULED) IV SCH (21:10)
[2019-08-08] MEDS: ATORVASTATIN CALCIUM 20 MG TABLET NG SCH (21:11)
[2019-08-08 23:20] LABS: ABSOLUTE BASOPHILS # (AUTO) 0.1 10^3/uL (0.0-0.2); ABSOLUTE EOSINOPHILS # (AUTO) 0.3 10^3/uL (0.0-0.6); ABSOLUTE MONOCYTES (AUTO) 0.8 10^3/uL (0.1-1.4); EOSINOPHILS % (AUTO) 3.6 % (0-6); MEAN CORPUSCULAR VOLUME 87 fl (80-97); TOTAL CELLS COUNTED % (AUTO) 100 %
[2019-08-08 23:44] LABS: ABSOLUTE LYMPHOCYTES (AUTO) 1.5 10^3/uL (0.5-4.7); ABSOLUTE NEUT (AUTO) 6.7 10^3/uL (1.7-8.2); BASOPHILS % (AUTO) 0.7 % (0-2); HEMATOCRIT 31.4 % (37.9-51.0); LYMPHOCYTES % (AUTO) 15.5 % (13-45); MEAN CORPUSCULAR HEMOGLOBIN 30.1 pg (27.0-33.4); MEAN CORPUSCULAR HGB CONC 34.7 g/dL (32.0-36.0); MONOCYTES % (AUTO) 8.9 % (3-13); PLATELET COUNT 184 10^3/uL (150-450); RED BLOOD COUNT 3.62 10^6/uL (4.35-5.55); RED CELL DISTRIBUTION WIDTH 14.3 % (11.5-14.0); SEGMENTED NEUTROPHILS % (AUTO) 71.3 % (42-78); WHITE BLOOD COUNT 9.4 10^3/uL (4.0-10.5)
[2019-08-08 23:48] LABS: HEMOGLOBIN 10.9 g/dL (13.5-17.0)
[2019-08-08] MEDS: HYDRALAZINE HCL INJ/PF 20 MG/1 ML SDV IV PRN (23:51)
[2019-08-09] MEDS ORDERED: PANTOPRAZOLE SODIUM 40 MG VIAL IV ONE (04:48)
[2019-08-09] MEDS: INSULIN LISPRO 100 UNIT/ML 3 ML VIAL SUBCUT SCH ×4 (04:53→19:50)
[2019-08-09] MEDS: HEPARIN SOD (PORCINE) 5,000 UNIT/ML 1 ML VIAL SUBCUT SCH ×3 (05:00→22:06)
[2019-08-09] MEDS: CEFEPIME HCL 2 GM in DEXTROSE 5%-WATER 50 ML IV SCH ×3 (05:00→22:08)
[2019-08-09] MEDS: NORMAL SALINE 100 ML with PANTOPRAZOLE SODIUM 80 MG IV PRN ×4 (05:02→15:07)
[2019-08-09] MEDS: HYDRALAZINE HCL 25 MG TABLET PO SCH ×3 (06:51→22:06)
[2019-08-09] MEDS: BENAZEPRIL HCL 20 MG TABLET NG SCH (09:09)
[2019-08-09] MEDS: MULTIVITAMIN TABLET PO SCH (09:09)
[2019-08-09] MEDS: CLOPIDOGREL BISULFATE 75 MG TABLET PO SCH (09:09)
[2019-08-09] MEDS: ATENOLOL 50 MG TABLET NG SCH (09:09)
[2019-08-09] MEDS: TAMSULOSIN HCL 0.4 MG CAP.SR.24H PO SCH (09:09)
[2019-08-09] MEDS: POTASSIUM CHLORIDE 20 MEQ PACKET NG SCH ×2 (09:09→22:10)
[2019-08-09] MEDS: NORMAL SALINE 10 ML SDV (SCHEDULED) IV SCH ×2 (09:14→22:09)
[2019-08-09] MEDS: HYDRALAZINE HCL INJ/PF 20 MG/1 ML SDV IV PRN (09:14)
--- NOTE | 2019-08-09 16:38 | PDOC PROGRESS REPORT ---
Subjective Progress Note for:: 08/09/19 Subjective:: This is an 82-year-old male who was admitted for acute encephalopathy and was also in acute renal failure. Patient's main issue during this course has been his waxing and waning confusion. He has been n.p.o. during this course due to his encephalopathy. PICC line was placed yesterday for possible TPN. Upon encounter, he appears comfortable on room air.No acute event overnight. He is oriented to person. He is able to follow simple commands on persistent promp ting. He appears to have good dental attention and appears to be protecting his airway well. Hold off on TPN for now. Will have speech therapy reevaluate patient and possibly start him on an oral diet today. Discussed plan of care with /DPOA at bedside who is agreeable to plan. Reason For Visit: HYPERTENSIVE ENCEPHALOPATHY Physical Exam Vital Signs: Temp Pulse Resp BP Pulse Ox 97.3 F 65 17 178/74 H 99 08/09/19 08:35 08/09/19 07:00 08/09/19 08:35 08/09/19 08:35 08/09/19 04:26 Intake & Output 08/08/19 08/09/19 08/10/19 06:59 06:59 06:59 Intake Total 3224 1350 Output Total 1600 1550 Balance 1624 -200 Weight 191 lb 5.78 oz 182 lb 12.211 oz General appearance: PRESENT: no acute distress, well-developed, well-nourished Head exam: PRESENT: atraumatic, normocephalic Eye exam: PRESENT: conjunctiva pink, EOMI, PERRLA. ABSENT: scleral icterus Ear exam: PRESENT: normal external ear exam Mouth exam: PRESENT: moist, tongue midline Neck exam: ABSENT: carotid bruit, JVD, lymphadenopathy, thyromegaly Respiratory exam: PRESENT: clear to auscultation major. ABSENT: rales, rhonchi, wheezes Cardiovascular exam: PRESENT: RRR. ABSENT: diastolic murmur, rubs, systolic murmur Pulses: PRESENT: normal dorsalis pedis pul GI/Abdominal exam: PRESENT: normal bowel sounds, soft. ABSENT: distended, guarding, mass, organolmegaly, rebound, tenderness Rectal exam: PRESENT: deferred Neurological exam: PRESENT: alert, awake, oriented to person. ABSENT: oriented to place, oriented to time Results Laboratory Results: 08/08/19 22:30 08/08/19 18:18 08/08/19 08/08/19 18:18 22:30 WBC 9.4 RBC 3.62 L Hgb 10.9 L D Hct 31.4 L MCV 87 MCH 30.1 MCHC 34.7 RDW 14.3 H Plt Count 184 Seg Neutrophils % 71.3 Sodium 142.2 Potassium 3.6 Chloride 111 H Carbon Dioxide 23 Anion Gap 8 BUN 37 H Creatinine 1.57 H Est GFR ( Amer) 51 L Glucose 97 Calcium 9.0 08/03/19 10:30 Blood Blood Culture - Final NO GROWTH IN 5 DAYS 08/03/19 09:33 Blood Blood Culture - Final NO GROWTH IN 5 DAYS 07/28/19 07/28/19 07/28/19 13:35 13:35 17:30 Creatine Kinase 134 Troponin I 0.050 0.052 NT-Pro-B Natriuret Pep 07/29/19 07/30/19 07/30/19 03:06 03:28 08:50 Creatine Kinase Troponin I Cancelled 0.079 Cancelled NT-Pro-B Natriuret Pep 770 H 07/30/19 09:40 Creatine Kinase Troponin I 0.048 NT-Pro-B Natriuret Pep Impressions: Abdomen/Pelvis CT 07/28/19 00:00 IMPRESSION: 3 mm stone distal left ureter. Mild hydronephrosis. Carotid Doppler Study 08/01/19 00:00 IMPRESSION: No hemodynamically significant stenosis on the left. Right side was not performed as described above. Head CTA 08/02/19 00:00 IMPRESSION: NO CTA EVIDENCE OF STENOSIS OR ANEURYSM OF [place]. Lumbar Puncture 08/02/19 00:00 IMPRESSION: Lumbar puncture under fluoroscopy. No immediate complication. Neck CTA 08/02/19 00:00 IMPRESSION: Complex plaque in the right carotid bulb and proximal ICA with focal greater than 70% stenosis at the origin of the ICA best demonstrated on sagittal reconstructions. Chest X-Ray 08/03/19 08:51 IMPRESSION: NO ACUTE RADIOGRAPHIC FINDING IN THE CHEST. KUB X-Ray 08/04/19 00:00 IMPRESSION: Limited view of the abdomen demonstrates NG tube in place. The tip overlies the gastric fundus. Head CT 08/06/19 12:41 IMPRESSION: Chronic changes. No acute intracranial abnormality. EVIDENCE OF ACUTE STROKE: NO. Guidance Fluoroscopy 08/08/19 00:00 IMPRESSION: SUCCESSFUL PLACEMENT OF A 5 FR DUAL LUMEN 42 CM PICC IN THE LEFT BASILIC VEIN. Interventional Vascular Procedure 08/08/19 00:00 IMPRESSION: SUCCESSFUL PLACEMENT OF A 5 FR DUAL LUMEN 42 CM PICC IN THE LEFT BASILIC VEIN. PICC Line Insertion 08/08/19 00:00 IMPRESSION: SUCCESSFUL PLACEMENT OF A 5 FR DUAL LUMEN 42 CM PICC IN THE LEFT BASILIC VEIN. Assessment and Plan - Diagnosis (1) Acute metabolic encephalopathy Is this a current diagnosis for this admission?: Yes Plan: Multifactorial from acute renal failure in a patient with early signs of possible dementia. says that that he has not been previously diagnosed with dementia but has been having some memory problems in the past few months. (2) Hypertensive encephalopathy Is this a current diagnosis for this admission?: Yes Plan: Currently on benazepril, hydralazine and atenolol. Blood pressures remain elevated. Will add amlodipine. - Plan Summary Summary: 08/06/2019 Blood pressures are well controlled with systolic averaging now around 140 and diastolic around 60 Patient remains afebrile with temperatures 99 for the last 96 hours Pulse in the 70s or 80s O2 sat 98% on room air CBC shows a white count 11,100 H&H is stable at 13.6 and 40.6 Electrolytes are stable glucose around 120 Blood cultures negative x72 hours Patient had a CTA head scan done on 08/02/2019 showed no vascular abnormalities CT head scan done on showed chronic microvascular changes with atrophy Going to repeat the CT head scan today see if there is been any new appearance of ischemia Family is deciding on placement possible TPN nutrition 08/07/2019 Family has decided to go ahead with a PICC line for TPN This will be done on 08/08/2019 Labs will be rechecked tomorrow 08/08/2019 Patient appears to be a senior care facility patient Patient only smiles or mumbles when spoken to. This is no change from the last several days 08/08/2019 Temperature 98.8 pulse between 65 and 80 blood pressure 156/53 White count 13,700 Chemistry panel from today is pending last set of electrolytes showed a slightly elevated BUN of 62 creatinine of 2.0 Patient is having PICC line placed today we will start TPN, this is been ordered. Patient's family has agreed to placement at [facility] Patient's paperwork has been submitted to [facility] today Patient's primary complaint is encephalopathy secondary to hypertensive crisis - Time Time Spent with patient: 25-34 minutes
[2019-08-09] MEDS: AMLODIPINE BESYLATE 5 MG TABLET PO SCH (16:42)
[2019-08-09] MEDS: DEXTROSE 5%-WATER 1000 ML 1,000 ML IV PRN (17:42)
[2019-08-09] MEDS: ATORVASTATIN CALCIUM 20 MG TABLET NG SCH (22:07)
[2019-08-10] MEDS: INSULIN LISPRO 100 UNIT/ML 3 ML VIAL SUBCUT SCH ×5 (03:16→23:16)
[2019-08-10] MEDS: NORMAL SALINE 100 ML with PANTOPRAZOLE SODIUM 80 MG IV PRN ×6 (03:17→23:27)
[2019-08-10] MEDS: DEXTROSE 5%-WATER 1000 ML 1,000 ML IV PRN ×2 (03:52→16:25)
[2019-08-10] MEDS: CEFEPIME HCL 2 GM in DEXTROSE 5%-WATER 50 ML IV SCH (05:30)
[2019-08-10] MEDS: HEPARIN SOD (PORCINE) 5,000 UNIT/ML 1 ML VIAL SUBCUT SCH (05:30)
[2019-08-10] MEDS: HYDRALAZINE HCL 25 MG TABLET PO SCH ×3 (05:30→23:15)
[2019-08-10 06:54] LABS: ANION GAP 8 (5-19); BLOOD UREA NITROGEN 23 mg/dL (7-20); CALCIUM 9.1 mg/dL (8.4-10.2); CARBON DIOXIDE 21 mmol/L (22-30); CHLORIDE 109 mmol/L (98-107); GLUCOSE 107 mg/dL (75-110); POTASSIUM 3.6 mmol/L (3.6-5.0)
[2019-08-10] MEDS: AMLODIPINE BESYLATE 5 MG TABLET PO SCH (09:42)
[2019-08-10] MEDS: TAMSULOSIN HCL 0.4 MG CAP.SR.24H PO SCH (09:42)
[2019-08-10] MEDS: ATENOLOL 50 MG TABLET NG SCH (09:42)
[2019-08-10] MEDS: BENAZEPRIL HCL 20 MG TABLET NG SCH (09:42)
[2019-08-10] MEDS: MULTIVITAMIN TABLET PO SCH (09:42)
[2019-08-10] MEDS: NORMAL SALINE 10 ML SDV (SCHEDULED) IV SCH ×2 (09:43→23:17)
[2019-08-10] MEDS: POTASSIUM CHLORIDE 20 MEQ PACKET NG SCH ×2 (09:43→23:15)
[2019-08-10] MEDS: CLOPIDOGREL BISULFATE 75 MG TABLET PO SCH (09:43)
[2019-08-10] MEDS: SUCRALFATE 1 GM TABLET PO SCH ×3 (13:10→23:15)
--- NOTE | 2019-08-10 13:45 | RADIOLOGY REPORT (SQ) ---
EXAM DESCRIPTION: CHEST SINGLE VIEW COMPLETED DATE/TIME: 08/10/2019 1:15 pm REASON FOR STUDY: vomiting, hematemesis COMPARISON: 08/03/2019. EXAM PARAMETERS: NUMBER OF VIEWS: One view. TECHNIQUE: Single frontal radiographic view of the chest acquired. RADIATION DOSE: NA LIMITATIONS: None. FINDINGS: LUNGS AND PLEURA: No opacities, masses or pneumothorax. No pleural effusion. MEDIASTINUM AND HILAR STRUCTURES: No masses. Contour normal. HEART AND VASCULAR STRUCTURES: Heart normal in size. Normal vasculature. BONES: No acute findings. HARDWARE: PICC line. Spinal stimulator electrodes. OTHER: No other significant finding. IMPRESSION: NO ACUTE RADIOGRAPHIC FINDING IN THE CHEST. TECHNICAL DOCUMENTATION: JOB ID: [id number] [employer]- All Rights Reserved Reading location - IP/workstation name: [email or web address]
--- NOTE | 2019-08-10 14:05 | PDOC PROGRESS REPORT ---
Subjective Progress Note for:: 08/10/19 Subjective:: This is an 82-year-old male who was admitted for acute encephalopathy and was also in acute renal failure. Patient's main issue during this course has been his waxing and waning confusion. He has been n.p.o. during this course due to his encephalopathy. PICC line was placed yesterday for possible TPN. 08/09: Upon encounter, he appears comfortable on room air.No acute event overnight. He is oriented to person. He is able to follow simple commands on persistent prompting. He appears to have good dental attention and appears to be protecting his airway well. Hold off on TPN for now. Will have speech therapy reevaluate patient and possibly start him on an oral diet today. Discussed plan of care with /DPOA at bedside who is agreeable to plan. 08/10: Patient was reevaluated by speech therapy yesterday. He has slight improvement in his mentation and was able to follow commands yesterday. Diet has been advanced to liquids and ground meat solids with aspiration precautions. Upon encounter this morning, he remains oriented to person. He is a little more conversant and verbalizes he feels better today. Denies acute complaints. Later called by RN that patient vomited bright red clots. Reason For Visit: HYPERTENSIVE ENCEPHALOPATHY Physical Exam Vital Signs: Temp Pulse Resp BP Pulse Ox 98.0 F 94 20 113/50 L 98 08/10/19 03:09 08/10/19 07:38 08/10/19 03:09 08/10/19 07:38 08/10/19 07:38 Intake & Output 08/09/19 08/10/19 08/11/19 06:59 06:59 06:59 Intake Total 2350 1350 200 Output Total 1550 1350 325 Balance 800 0 -125 Weight 182 lb 12.211 oz 185 lb 3.013 oz General appearance: PRESENT: no acute distress, well-developed, well-nourished Head exam: PRESENT: atraumatic, normocephalic Eye exam: PRESENT: conjunctiva pink, EOMI, PERRLA. ABSENT: scleral icterus Ear exam: PRESENT: normal external ear exam Mouth exam: PRESENT: moist, tongue midline Neck exam: ABSENT: carotid bruit, JVD, lymphadenopathy, thyromegaly Respiratory exam: PRESENT: clear to auscultation major. ABSENT: rales, rhonchi, wheezes Cardiovascular exam: PRESENT: RRR. ABSENT: diastolic murmur, rubs, systolic murmur Pulses: PRESENT: normal dorsalis pedis pul GI/Abdominal exam: PRESENT: normal bowel sounds, soft. ABSENT: distended, guarding, mass, organolmegaly, rebound, tenderness Rectal exam: PRESENT: deferred Extremities exam: PRESENT: full ROM. ABSENT: calf tenderness, clubbing, pedal edema Neurological exam: PRESENT: alert, awake, oriented to person. ABSENT: oriented to place, oriented to time Results Laboratory Results: 08/08/19 22:30 08/10/19 05:35 08/10/19 05:35 Sodium 137.8 Potassium 3.6 Chloride 109 H Carbon Dioxide 21 L Anion Gap 8 BUN 23 H Creatinine 1.46 H Est GFR ( Amer) 56 L Glucose 107 Calcium 9.1 07/28/19 07/28/19 07/28/19 13:35 13:35 17:30 Creatine Kinase 134 Troponin I 0.050 0.052 NT-Pro-B Natriuret Pep 07/29/19 07/30/19 07/30/19 03:06 03:28 08:50 Creatine Kinase Troponin I Cancelled 0.079 Cancelled NT-Pro-B Natriuret Pep 770 H 07/30/19 09:40 Creatine Kinase Troponin I 0.048 NT-Pro-B Natriuret Pep Impressions: Abdomen/Pelvis CT 07/28/19 00:00 IMPRESSION: 3 mm stone distal left ureter. Mild hydronephrosis. Carotid Doppler Study 08/01/19 00:00 IMPRESSION: No hemodynamically significant stenosis on the left. Right side was not performed as described above. Head CTA 08/02/19 00:00 IMPRESSION: NO CTA EVIDENCE OF STENOSIS OR ANEURYSM OF THE [place] OF [place]. Lumbar Puncture 08/02/19 00:00 IMPRESSION: Lumbar puncture under fluoroscopy. No immediate complication. Neck CTA 08/02/19 00:00 IMPRESSION: Complex plaque in the right carotid bulb and proximal ICA with focal greater than 70% stenosis at the origin of the ICA best demonstrated on sagittal reconstructions. KUB X-Ray 08/04/19 00:00 IMPRESSION: Limited view of the abdomen demonstrates NG tube in place. The tip overlies the gastric fundus. Head CT 08/06/19 12:41 IMPRESSION: Chronic changes. No acute intracranial abnormality. EVIDENCE OF ACUTE STROKE: NO. Guidance Fluoroscopy 08/08/19 00:00 IMPRESSION: SUCCESSFUL PLACEMENT OF A 5 FR DUAL LUMEN 42 CM PICC IN THE LEFT BASILIC VEIN. Interventional Vascular Procedure 08/08/19 00:00 IMPRESSION: SUCCESSFUL PLACEMENT OF A 5 FR DUAL LUMEN 42 CM PICC IN THE LEFT BASILIC VEIN. PICC Line Insertion 08/08/19 00:00 IMPRESSION: SUCCESSFUL PLACEMENT OF A 5 FR DUAL LUMEN 42 CM PICC IN THE LEFT BASILIC VEIN. Chest X-Ray 08/10/19 12:28 IMPRESSION: NO ACUTE RADIOGRAPHIC FINDING IN THE CHEST. Assessment and Plan - Diagnosis (1) Acute metabolic encephalopathy Is this a current diagnosis for this admission?: Yes Plan: Multifactorial from acute renal failure in a patient with early signs of possible dementia. says that that he has not been previously diagnosed with dementia but has been having some memory problems in the past few months. 08/10: Slowly improving. He had apparent right-sided weakness when he was in the ICU which appears to have resolved on neurologic reexamination. MRI was ordered but was not pursued as there was concern because he had a stimulator implant. Will pursue brain MRI once cleared by radiology. (2) Hypertensive encephalopathy Is this a current diagnosis for this admission?: Yes Plan: 08/09: Currently on benazepril, hydralazine and atenolol. Blood pressures remain elevated. Will add amlodipine. 08/10: Blood pressures have improved. (3) Hematemesis Is this a current diagnosis for this admission?: Yes Plan: He was started on Plavix in the ICU. Hold clopidogrel. Hold heparin for now. Will consult surgery. Continue IV Protonix. Will add sucralfate. We will continue to cycle H&H. - Plan Summary Summary: 08/06/2019 Blood pressures are well controlled with systolic averaging now around 140 and diastolic around 60 Patient remains afebrile with temperatures 99 for the last 96 hours Pulse in the 70s or 80s O2 sat 98% on room air CBC shows a white count 11,100 H&H is stable at 13.6 and 40.6 Electrolytes are stable glucose around 120 Blood cultures negative x72 hours Patient had a CTA head scan done on 08/02/2019 showed no vascular abnormalities CT head scan done on showed chronic microvascular changes with atrophy Going to repeat the CT head scan today see if there is been any new appearance of ischemia Family is deciding on placement possible TPN nutrition 08/07/2019 Family has decided to go ahead with a PICC line for TPN This will be done on 08/08/2019 Labs will be rechecked tomorrow 08/08/2019 Patient appears to be a half-way facility patient Patient only smiles or mumbles when spoken to. This is no change from the last several days 08/08/2019 Temperature 98.8 pulse between 65 and 80 blood pressure 156/53 White count 13,700 Chemistry panel from today is pending last set of electrolytes showed a slightly elevated BUN of 62 creatinine of 2.0 Patient is having PICC line placed today we will start TPN, this is been ordered. Patient's family has agreed to placement at [facility] Patient's paperwork has been submitted to [facility] today Patient's primary complaint is encephalopathy secondary to hypertensive crisis
[2019-08-10] MEDS: CARBOXYMETHYLCELLULOSE SOD 0.5% 0.4 ML DROPERETTE OU SCH (16:22)
[2019-08-10 19:09] LABS: HEMATOCRIT 27.4 % (37.9-51.0); HEMOGLOBIN 9.2 g/dL (13.5-17.0); MEAN CORPUSCULAR HEMOGLOBIN 29.6 pg (27.0-33.4); MEAN CORPUSCULAR HGB CONC 33.7 g/dL (32.0-36.0); MEAN CORPUSCULAR VOLUME 88 fl (80-97); PLATELET COUNT 180 10^3/uL (150-450); RED BLOOD COUNT 3.12 10^6/uL (4.35-5.55); RED CELL DISTRIBUTION WIDTH 14.2 % (11.5-14.0); WHITE BLOOD COUNT 8.8 10^3/uL (4.0-10.5)
[2019-08-10] MEDS: ATORVASTATIN CALCIUM 20 MG TABLET NG SCH (23:17)
[2019-08-11] MEDS: HYDRALAZINE HCL 25 MG TABLET PO SCH ×3 (05:39→21:15)
[2019-08-11] MEDS: DEXTROSE 5%-WATER 1000 ML 1,000 ML IV PRN ×2 (05:40→18:45)
[2019-08-11 06:16] LABS: HEMATOCRIT 26.3 % (37.9-51.0); HEMOGLOBIN 9.1 g/dL (13.5-17.0); MEAN CORPUSCULAR HGB CONC 34.6 g/dL (32.0-36.0); MEAN CORPUSCULAR VOLUME 87 fl (80-97); PLATELET COUNT 185 10^3/uL (150-450); RED BLOOD COUNT 3.04 10^6/uL (4.35-5.55); RED CELL DISTRIBUTION WIDTH 14.4 % (11.5-14.0); WHITE BLOOD COUNT 8.4 10^3/uL (4.0-10.5)
[2019-08-11 06:24] LABS: ANION GAP 8 (5-19); BLOOD UREA NITROGEN 35 mg/dL (7-20); CALCIUM 8.8 mg/dL (8.4-10.2); CARBON DIOXIDE 22 mmol/L (22-30); CHLORIDE 108 mmol/L (98-107); GLUCOSE 106 mg/dL (75-110); POTASSIUM 3.6 mmol/L (3.6-5.0)
[2019-08-11 06:47] LABS: ABSOLUTE LYMPHOCYTES# (MANUAL) 1.2 10^3/uL (0.5-4.7); ABSOLUTE MONOCYTES # (MANUAL) 0.5 10^3/uL (0.1-1.4); ANISOCYTOSIS SLIGHT; BASOPHILS % (MANUAL) 0 % (0-2); EOSINOPHILS % (MANUAL) 0 % (0-6); LYMPHOCYTES % (MANUAL) 14 % (13-45); MONOCYTES % (MANUAL) 6 % (3-13); SEGMENTED NEUTROPHILS % (MAN) 80 % (42-78); TOTAL CELLS COUNTED 100
[2019-08-11 06:48] LABS: OVALOCYTES SLIGHT; PLATELET COMMENT ADEQUATE; POLYCHROMASIA SLIGHT
--- NOTE | 2019-08-11 10:54 | PDOC CONSULTATION ---
Consultation Consult Date: 08/11/19 Provider Consulted: CHRISTOPHER CRAIG Consult reason:: EGD History of Present Illness Admission Date/PCP: 07/28/19 22:02 History of Present Illness: SCOT CLEARY is a 84 year old male patient was admitted for encephalopathy. Yesterday afternoon patient had a hematemesis. Surgery is being consulted for EGD. His hemoglobin appears stable around 9 for the past for 4 days. 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 Per -snoring/apnea periods. 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 Neurological Medical History: Denies: Migraine, Multiple Sclerosis, Seizures Endocrine Medical History: Denies: None, Hyperthyroidism, Hypothyroidism Renal/ Medical History: Reports: Chronic Kidney Disease, Nephrolithiasis, Other - Remote Hx renal calculi; has BPH Malignancy Medical History: Reports: None GI Medical History: Denies: Cirrhosis, Crohn's Disease, Diverticulitis, Hepatitis, Ulcerative Colitis Musculoskeltal Medical History: Reports: None Skin Medical History: Denies: Eczema, Psoriasis Psychiatric Medical History: Denies: Alcohol Dependency, Bipolar Disorder, Dementia, General Anxiety Disorder, Schizoaffective Disorder Traumatic Medical History: Denies: None Hematology: Reports: Bleeding Tendencies - for which [employer] changed Plavix to every other day & dc'd ASA, 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 Denies: Sickle Cell Disease, Neutropenia Infectious Medical History: Denies: None Past Surgical History Past Surgical History: Reports: Appendectomy, Coronary Stent - x4, Knee Replacement, Other - R knee replacement Social History Lives with: Spouse/Significant other Smoking Status: Former Smoker - "Quit many many years ago" Last Time Smoked: pt and uncertain Frequency of Alcohol Use: Rare Hx Recreational Drug Use: No Hx Prescription Drug Abuse: No - Advance Directive Resuscitation Status: Do Not Resuscitate - Do Not Intubate Family History Family History: Hypertension, Malignancy Parental Family History Reviewed: Yes Children Family History Reviewed: No Sibling(s) Family History Reviewed.: No Medication/Allergy Home Medications: Atenolol [Tenormin 50 mg Tablet] 50 mg PO DAILY 07/28/19 Benazepril HCl [Lotensin] 40 mg PO DAILY 07/28/19 Celecoxib [Celebrex 200 mg Capsule] 200 mg PO DAILY 07/28/19 Clopidogrel Bisulfate [Plavix 75 mg Tablet] 75 mg PO Q2DAYS 07/28/19 Finasteride [Proscar 5 mg Tablet] 5 mg PO DAILY 07/28/19 Krill/[place]-3/Dha/Epa/Lipids [[place]-3 Krill Oil 500 mg Sfgl] 1 cap PO Q2DAYS 07/28/19 Metoprolol Succinate [Toprol Xl 25 mg Tab.sr] 25 mg PO DAILY 07/28/19 Multivitamin [Daily Multiple Vitamin] 1 tab PO DAILY 07/28/19 Nitroglycerin [Nitrostat 0.4 mg (1/150 Gr) Tabs 25/Bottle] 0.4 mg SL Q5MP PRN 07/28/19 Pantoprazole Sodium [Protonix [address] Tablet] 40 mg PO DAILY 07/28/19 Rosuvastatin Calcium [Crestor 10 mg Tablet] 10 mg PO QHS 07/28/19 Tamsulosin HCl [Flomax 0.4 mg Cap.sr] 0.4 mg PO DAILY 07/28/19 Ubidecarenone [Coq-10] 300 mg PO DAILY 07/28/19 Allergies/Adverse Reactions: tramadol Allergy (Verified 07/28/19 12:05) Review of Systems ROS unobtainable: Due to mental status Physical Exam Vital Signs: Temp Pulse Resp BP Pulse Ox 97.8 F 64 17 125/47 L 100 08/11/19 08:31 08/11/19 08:31 08/11/19 08:31 08/11/19 08:31 08/11/19 08:31 Intake & Output 08/10/19 08/11/19 08/12/19 06:59 06:59 06:59 Intake Total 1350 2296 Output Total 1350 1675 Balance 0 621 Weight 84 kg 83.7 kg Exam: Patient appears obtunded and unable to communicate. Is barely arousable. According to the nurses patient is DNR and family has refused PEG tube placement in the past. Results Laboratory Results: 08/11/19 05:17 08/11/19 05:17 08/10/19 08/11/19 08/11/19 16:35 05:17 05:17 WBC 8.8 8.4 RBC 3.12 L 3.04 L Hgb 9.2 L 9.1 L Hct 27.4 L 26.3 L MCV 88 87 MCH 29.6 30.0 MCHC 33.7 34.6 RDW 14.2 H 14.4 H Plt Count 180 185 Seg Neutrophils % Not Reportable Sodium 137.5 Potassium 3.6 Chloride 108 H Carbon Dioxide 22 Anion Gap 8 BUN 35 H Creatinine 1.63 H Est GFR ( Amer) 49 L Glucose 106 Calcium 8.8 07/28/19 07/28/19 07/28/19 13:35 13:35 17:30 Creatine Kinase 134 Troponin I 0.050 0.052 NT-Pro-B Natriuret Pep 07/29/19 07/30/19 07/30/19 03:06 03:28 08:50 Creatine Kinase Troponin I Cancelled 0.079 Cancelled NT-Pro-B Natriuret Pep 770 H 07/30/19 09:40 Creatine Kinase Troponin I 0.048 NT-Pro-B Natriuret Pep Impressions: Abdomen/Pelvis CT 07/28/19 00:00 IMPRESSION: 3 mm stone distal left ureter. Mild hydronephrosis. Carotid Doppler Study 08/01/19 00:00 IMPRESSION: No hemodynamically significant stenosis on the left. Right side was not performed as described above. Head CTA 08/02/19 00:00 IMPRESSION: NO CTA EVIDENCE OF STENOSIS OR ANEURYSM OF THE [place] OF [place]ED[place]. Lumbar Puncture 08/02/19 00:00 IMPRESSION: Lumbar puncture under fluoroscopy. No immediate complication. Neck CTA 08/02/19 00:00 IMPRESSION: Complex plaque in the right carotid bulb and proximal ICA with focal greater than 70% stenosis at the origin of the ICA best demonstrated on sagittal reconstructions. KUB X-Ray 08/04/19 00:00 IMPRESSION: Limited view of the abdomen demonstrates NG tube in place. The tip overlies the gastric fundus. Head CT 08/06/19 12:41 IMPRESSION: Chronic changes. No acute intracranial abnormality. EVIDENCE OF ACUTE STROKE: NO. Guidance Fluoroscopy 08/08/19 00:00 IMPRESSION: SUCCESSFUL PLACEMENT OF A 5 FR DUAL LUMEN 42 CM PICC IN THE LEFT BASILIC VEIN. Interventional Vascular Procedure 08/08/19 00:00 IMPRESSION: SUCCESSFUL PLACEMENT OF A 5 FR DUAL LUMEN 42 CM PICC IN THE LEFT BASILIC VEIN. PICC Line Insertion 08/08/19 00:00 IMPRESSION: SUCCESSFUL PLACEMENT OF A 5 FR DUAL LUMEN 42 CM PICC IN THE LEFT BASILIC VEIN. Chest X-Ray 08/10/19 12:28 IMPRESSION: NO ACUTE RADIOGRAPHIC FINDING IN THE CHEST. Assessment & Plan - Diagnosis (1) Encephalopathy Is this a current diagnosis for this admission?: Yes (2) Upper GI bleed Is this a current diagnosis for this admission?: Yes - Time Time Spent: 30 to 50 Minutes - Plan Summary Plan Summary: 84-year-old male with encephalopathy. Mental status appears to have deteriorated today. Have hematemesis yesterday and surgery is being consulted for EGD. Plans: I am awaiting for the to come in today and discussed with her about EGD and PEG tube placement. Patient's mental status appears to have deteriorated today and would like to know how aggressive we should be with the patient's further management. Patient was seen later this afternoon and noted to be more alert. is at bedside and patient able to recognize his . I discussed the procedure of upper endoscopy with his who agreed and signed the consent form. Dr. Henriquez will be doing his EGD tomorrow
[2019-08-11 11:45] LABS: ARTERIAL BLOOD BASE EXCESS -2.6 mmol/L; ARTERIAL BLOOD FIO2 ROOM AIR; ARTERIAL BLOOD H2CO3 1.04 mmol/L (1.05-1.35); ARTERIAL BLOOD HCO3 21.6 mmol/L (20-24); ARTERIAL BLOOD O2 SATURATION 97.6 % (94-98); ARTERIAL BLOOD PCO2 34.4 mmHg (35-45); ARTERIAL BLOOD PH 7.42 (7.35-7.45); ARTERIAL BLOOD PO2 98.9 mmHg (80-100); ARTERIAL BLOOD TOTAL CO2 22.6 mmol/L (23-27)
[2019-08-11] MEDS: SUCRALFATE 1 GM TABLET PO SCH ×4 (11:45→21:13)
[2019-08-11] MEDS: INSULIN LISPRO 100 UNIT/ML 3 ML VIAL SUBCUT SCH ×4 (11:45→21:26)
[2019-08-11] MEDS: TAMSULOSIN HCL 0.4 MG CAP.SR.24H PO SCH (11:45)
[2019-08-11] MEDS: AMLODIPINE BESYLATE 5 MG TABLET PO SCH (11:46)
[2019-08-11] MEDS: BENAZEPRIL HCL 20 MG TABLET NG SCH (11:46)
[2019-08-11] MEDS: POTASSIUM CHLORIDE 20 MEQ PACKET NG SCH ×2 (11:46→21:13)
[2019-08-11] MEDS: ATENOLOL 50 MG TABLET NG SCH (11:48)
[2019-08-11] MEDS: CARBOXYMETHYLCELLULOSE SOD 0.5% 0.4 ML DROPERETTE OU SCH ×2 (11:48→17:38)
[2019-08-11] MEDS: MULTIVITAMIN TABLET PO SCH (11:48)
[2019-08-11] MEDS: NORMAL SALINE 10 ML SDV (SCHEDULED) IV SCH ×2 (12:05→21:15)
[2019-08-11] MEDS: NORMAL SALINE 100 ML with PANTOPRAZOLE SODIUM 80 MG IV PRN ×4 (12:05→22:34)
--- NOTE | 2019-08-11 13:39 | RADIOLOGY REPORT (SQ) ---
EXAM DESCRIPTION: CT HEAD WITHOUT COMPLETED DATE/TIME: 08/11/2019 1:30 pm REASON FOR STUDY: decrease in mentation COMPARISON: 08/06/2019 TECHNIQUE: Axial images acquired through the brain without intravenous contrast. Images reviewed wi th bone, brain and subdural windows. Additional sagittal and coronal reconstructions were generated. Images stored on PACS. All CT scanners at this facility use dose modulation, iterative reconstruction, and/or weight based d osing when appropriate to reduce radiation dose to as low as reasonably achievable (ALARA). [facility]: Dose Right [facility]: CareDose [facility]: Dose Right [facility]: Teradose 4D [facility]: [employer]o RADIATION DOSE: CT Rad equipment meets quality standard of care and radiation dose reduction techniq ues were employed. CTDIvol: 48.8 mGy. DLP: 1079 mGy-cm.mGy. LIMITATIONS: None. FINDINGS: VENTRICLES: Prominent. CEREBRUM: No masses. No hemorrhage. No midline shift. Areas of low density in the white matter mos t likely due to chronic micro-vascular ischemic change. No evidence for acute infarction. CEREBELLUM: No masses. No hemorrhage. No alteration of density. No evidence for acute infarction. EXTRAAXIAL SPACES: Age-related involutional change. No fluid collections. No masses. ORBITS AND GLOBE: No intra- or extraconal masses. Normal contour of globe without masses. CALVARIUM: No fracture. PARANASAL SINUSES: No fluid or mucosal thickening. SOFT TISSUES: No mass or hematoma. OTHER: No other significant finding. IMPRESSION: CHRONIC CHANGES OF ATROPHY AND MICROVASCULAR ISCHEMIA. NO ACUTE PROCESS. EVIDENCE OF ACUTE STROKE: NO. TECHNICAL DOCUMENTATION: JOB ID: [id number] Quality ID # [id number]: Final reports with documentation of one or more dose reduction techniques (e.g., Au tomated exposure control, adjustment of the mA and/or kV according to patient size, use of iterative reconstruction technique) 2010 [employer]- All Rights Reserved Reading location - IP/workstation name: [email or web address]
--- NOTE | 2019-08-11 13:39 | PDOC PROGRESS REPORT ---
Subjective Progress Note for:: 08/11/19 Subjective:: This is an 82-year-old male who was admitted for acute encephalopathy and was also in acute renal failure. Patient's main issue during this course has been his waxing and waning confusion. He has been n.p.o. during this course due to his encephalopathy. PICC line was placed yesterday for possible TPN. 08/09: Upon encounter, he appears comfortable on room air.No acute event overnight. He is oriented to person. He is able to follow simple commands on persistent prompting. He appears to have good dental attention and appears to be protecting his airway well. Hold off on TPN for now. Will have speech therapy reevaluate patient and possibly start him on an oral diet today. Discussed plan of care with /DPOA at bedside who is agreeable to plan. 08/10: Patient was reevaluated by speech therapy yesterday. He has slight improvement in his mentation and was able to follow commands yesterday. Diet has been advanced to liquids and ground meat solids with aspiration precautions. Upon encounter this morning, he remains oriented to person. He is a little more conversant and verbalizes he feels better today. Denies acute complaints. Later called by RN that patient vomited bright red clots. 08/11: No acute event overnight. No recurrence of hematemesis overnight. Blood pressures have been stable. His hemoglobin has been stable as well. His blood pressures have improved. However, he is more lethargic today. He is arousable and moans to painful stimuli. He was much more conversant and alert yesterday. Unable to pursue MRI due to issues with his stimulator. Will check an ABG and order a head CT. Patient reassessed at 3 pm and he is now completely awake and coherent. He is more conversant now than yesterday and is now oriented to person and place. He is laughing and denies any acute complaints. Suspect his waxing and waning mentation including his sleep pattern reversal is from acute delirium from his acute issues in a patient with possible early dementia. Reason For Visit: HYPERTENSIVE ENCEPHALOPATHY Physical Exam Vital Signs: Temp Pulse Resp BP Pulse Ox 97.4 F 60 14 118/52 L 100 08/11/19 10:00 08/11/19 10:08/11/19 10:08/11/19 10:08/11/19 10:00 Intake & Output 08/10/19 08/11/19 08/12/19 06:59 06:59 06:59 Intake Total 1350 2296 100 Output Total 1350 1675 Balance 0 621 100 Weight 185 lb 3.013 oz 184 lb 8.43 oz General appearance: PRESENT: no acute distress, well-developed, well-nourished Head exam: PRESENT: atraumatic, normocephalic Eye exam: PRESENT: conjunctiva pink, EOMI, PERRLA. ABSENT: scleral icterus Ear exam: PRESENT: normal external ear exam Mouth exam: PRESENT: moist, tongue midline Neck exam: ABSENT: carotid bruit, JVD, lymphadenopathy, thyromegaly Respiratory exam: PRESENT: clear to auscultation major. ABSENT: rales, rhonchi, wheezes Cardiovascular exam: PRESENT: RRR. ABSENT: diastolic murmur, rubs, systolic murmur Pulses: PRESENT: normal dorsalis pedis pul GI/Abdominal exam: PRESENT: normal bowel sounds, soft. ABSENT: distended, guarding, mass, organolmegaly, rebound, tenderness Rectal exam: PRESENT: deferred Neurological exam: PRESENT: altered Results Laboratory Results: 08/11/19 05:17 08/11/19 05:17 08/10/19 08/11/19 08/11/19 16:35 05:17 05:17 WBC 8.8 8.4 RBC 3.12 L 3.04 L Hgb 9.2 L 9.1 L Hct 27.4 L 26.3 L MCV 88 87 MCH 29.6 30.0 MCHC 33.7 34.6 RDW 14.2 H 14.4 H Plt Count 180 185 Seg Neutrophils % Not Reportable Carbonic Acid HCO3/H2CO3 Ratio ABG pH ABG pCO2 ABG pO2 ABG HCO3 ABG O2 Saturation ABG Base Excess FiO2 Sodium 137.5 Potassium 3.6 Chloride 108 H Carbon Dioxide 22 Anion Gap 8 BUN 35 H Creatinine 1.63 H Est GFR ( Amer) 49 L Glucose 106 Calcium 8.8 Ammonia 08/11/19 08/11/19 11:14 11:25 WBC RBC Hgb Hct MCV MCH MCHC RDW Plt Count Seg Neutrophils % Carbonic Acid 1.04 L HCO3/H2CO3 Ratio 20:1 ABG pH 7.42 ABG pCO2 34.4 L ABG pO2 98.9 ABG HCO3 21.6 ABG O2 Saturation 97.6 ABG Base Excess -2.6 FiO2 ROOM AIR Sodium Potassium Chloride Carbon Dioxide Anion Gap BUN Creatinine Est GFR ( Amer) Glucose Calcium Ammonia < 8.7 L 07/28/19 07/28/19 07/28/19 13:35 13:35 17:30 Creatine Kinase 134 Troponin I 0.050 0.052 NT-Pro-B Natriuret Pep 07/29/19 07/30/19 07/30/19 03:06 03:28 08:50 Creatine Kinase Troponin I Cancelled 0.079 Cancelled NT-Pro-B Natriuret Pep 770 H 07/30/19 09:40 Creatine Kinase Troponin I 0.048 NT-Pro-B Natriuret Pep Impressions: Abdomen/Pelvis CT 07/28/19 00:00 IMPRESSION: 3 mm stone distal left ureter. Mild hydronephrosis. Carotid Doppler Study 08/01/19 00:00 IMPRESSION: No hemodynamically significant stenosis on the left. Right side was not performed as described above. Head CTA 08/02/19 00:00 IMPRESSION: NO CTA EVIDENCE OF STENOSIS OR ANEURYSM OF THE [place]. Lumbar Puncture 08/02/19 00:00 IMPRESSION: Lumbar puncture under fluoroscopy. No immediate complication. Neck CTA 08/02/19 00:00 IMPRESSION: Complex plaque in the right carotid bulb and proximal ICA with focal greater than 70% stenosis at the origin of the ICA best demonstrated on sagittal reconstructions. KUB X-Ray 08/04/19 00:00 IMPRESSION: Limited view of the abdomen demonstrates NG tube in place. The tip overlies the gastric fundus. Guidance Fluoroscopy 08/08/19 00:00 IMPRESSION: SUCCESSFUL PLACEMENT OF A 5 FR DUAL LUMEN 42 CM PICC IN THE LEFT BASILIC VEIN. Interventional Vascular Procedure 08/08/19 00:00 IMPRESSION: SUCCESSFUL PLACEMENT OF A 5 FR DUAL LUMEN 42 CM PICC IN THE LEFT BASILIC VEIN. PICC Line Insertion 08/08/19 00:00 IMPRESSION: SUCCESSFUL PLACEMENT OF A 5 FR DUAL LUMEN 42 CM PICC IN THE LEFT BASILIC VEIN. Chest X-Ray 08/10/19 12:28 IMPRESSION: NO ACUTE RADIOGRAPHIC FINDING IN THE CHEST. Assessment and Plan - Diagnosis (1) Acute metabolic encephalopathy Is this a current diagnosis for this admission?: Yes Plan: Multifactorial from acute renal failure in a patient with early signs of possible dementia. says that that he has not been previously diagnosed with dementia but has been having some memory problems in the past few months. 12: Will check an ABG and order a head CT. Unable to pursue an MRI due to issues with his stimulator. (2) Hypertensive encephalopathy Is this a current diagnosis for this admission?: Yes Plan: Currently on benazepril, hydralazine and atenolol. Blood pressures remain elevated. Will add amlodipine. 1/2: Blood pressures have significantly improved. (3) UGIB (upper gastrointestinal bleed) Is this a current diagnosis for this admission?: Yes Plan: Scheduled for an EGD by surgery. H&H have been stable. Plavix and SQ heparin have been held. (4) Acute kidney injury superimposed on CKD Is this a current diagnosis for this admission?: Yes - Plan Summary Summary: 08/06/2019 Blood pressures are well controlled with systolic averaging now around 140 and diastolic around 60 Patient remains afebrile with temperatures 99 for the last 96 hours Pulse in the 70s or 80s O2 sat 98% on room air CBC shows a white count 11,100 H&H is stable at 13.6 and 40.6 Electrolytes are stable glucose around 120 Blood cultures negative x72 hours Patient had a CTA head scan done on 08/02/2019 showed no vascular abnormalities CT head scan done on showed chronic microvascular changes with atrophy Going to repeat the CT head scan today see if there is been any new appearance of ischemia Family is deciding on placement possible TPN nutrition 08/07/2019 Family has decided to go ahead with a PICC line for TPN This will be done on 08/08/2019 Labs will be rechecked tomorrow 08/08/2019 Patient appears to be a jail facility patient Patient only smiles or mumbles when spoken to. This is no change from the last several days 08/08/2019 Temperature 98.8 pulse between 65 and 80 blood pressure 156/53 White count 13,700 Chemistry panel from today is pending last set of electrolytes showed a slightly elevated BUN of 62 creatinine of 2.0 Patient is having PICC line placed today we will start TPN, this is been ordered. Patient's family has agreed to placement at [facility] Patient's paperwork has been submitted to [facility] today Patient's primary complaint is encephalopathy secondary to hypertensive crisis - Time Time Spent with patient: 25-34 minutes
[2019-08-11] MEDS ORDERED: GLUCAGON,HUMAN RECOMB 1 MG INJ SUBCUT PRN (18:34)
[2019-08-11] MEDS ORDERED: DEXTROSE 50%-WATER 25 GM/50 ML DISP.SYRIN IV PRN ×2 (18:34)
[2019-08-11] MEDS ORDERED: DEXTROSE 40% GEL 15 GM TUBE PO PRN ×2 (18:34)
[2019-08-11] MEDS: ATORVASTATIN CALCIUM 20 MG TABLET NG SCH (21:13)
[2019-08-12] MEDS: HYDRALAZINE HCL 25 MG TABLET PO SCH ×4 (05:21→21:05)
[2019-08-12] MEDS: DEXTROSE 5%-WATER 1000 ML 1,000 ML IV PRN (06:18)
[2019-08-12] MEDS: SUCRALFATE 1 GM TABLET PO SCH ×4 (08:41→21:12)
[2019-08-12] MEDS: INSULIN LISPRO 100 UNIT/ML 3 ML VIAL SUBCUT SCH ×4 (08:42→21:05)
[2019-08-12] MEDS: BENAZEPRIL HCL 20 MG TABLET NG SCH (10:00)
[2019-08-12] MEDS: TAMSULOSIN HCL 0.4 MG CAP.SR.24H PO SCH (10:00)
[2019-08-12] MEDS: AMLODIPINE BESYLATE 5 MG TABLET PO SCH (10:01)
[2019-08-12] MEDS: ATENOLOL 50 MG TABLET NG SCH (10:01)
[2019-08-12] MEDS: MULTIVITAMIN TABLET PO SCH (10:01)
[2019-08-12] MEDS: POTASSIUM CHLORIDE 20 MEQ PACKET NG SCH ×2 (10:01→21:12)
[2019-08-12] MEDS: CARBOXYMETHYLCELLULOSE SOD 0.5% 0.4 ML DROPERETTE OU SCH ×2 (10:16→17:27)
[2019-08-12] MEDS: NORMAL SALINE 100 ML with PANTOPRAZOLE SODIUM 80 MG IV PRN ×2 (10:17)
[2019-08-12] MEDS: NORMAL SALINE 10 ML SDV (SCHEDULED) IV SCH (10:53)
[2019-08-12] MEDS ORDERED: DIPHENHYDRAMINE HCL 50 MG/ML VIAL ONE (13:27)
[2019-08-12] MEDS ORDERED: FENTANYL CITRATE INJ/PF 100 MCG/2 ML AMPUL ONE (13:27)
[2019-08-12] MEDS ORDERED: ONDANSETRON HCL INJ/PF 4 MG/2 ML SDV ONE (13:27)
[2019-08-12] MEDS ORDERED: FLUMAZENIL INJ 0.5 MG/5 ML VIAL ONE (13:28)
[2019-08-12] MEDS ORDERED: GLUCAGON,HUMAN RECOMB 1 MG INJ ONE (13:28)
[2019-08-12] MEDS ORDERED: EPINEPHRINE INJ 1 MG/10 ML DISP.SYRIN ONE (13:28)
[2019-08-12] MEDS ORDERED: NALOXONE HCL INJ/PF 0.4 MG/1 ML SDV ONE (13:28)
[2019-08-12] MEDS ORDERED: MIDAZOLAM 2 MG/2 ML INJ ONE (13:28)
--- NOTE | 2019-08-12 14:37 | Operative Report ---
Nonrecallable Operative Report DATE OF SURGERY: 08/12/19 PREOPERATIVE DIAGNOSIS: Hematemesis POSTOPERATIVE DIAGNOSIS: Hematemesis OPERATION: Esophagogastroduodenoscopy SURGEON: MER[facility] MADRIGAL ANESTHESIA: Moderate Sedation TISSUE REMOVED OR ALTERED: None COMPLICATIONS: None ESTIMATED BLOOD LOSS: 0 INTRAOPERATIVE FINDINGS: See note PROCEDURE: This is an 84-year-old male who has a history of optic stroke dementia and encephalopathy who has been in the hospital for approximately 2 weeks he was noted yesterday to have hematemesis with a slightly decreasing hematocrit and therefore his medical provider consult surgery for upper endoscopy. Procedure note the patient was brought to the endoscopy suite awake in stable condition the procedure was done on the patient's hospital bed. After appropriate timeout and site verification patient was given 2 mg of Versed for sedation. Gastroscope was passed into the posterior pharynx and easily traversing the upper esophageal sphincter into the proximal esophagus down into the stomach the antrum was visualized the body the stomach the pylorus was visualized able to intubate the pylorus and examined the duodenum as we slowly withdrew the scope the duodenal bulb was examined there was no evidence of ulcerations or bleeding scope was then slowly pulled back through the pylorus there is no prepyloric ulcerations scope was then retroflexed and we examined the fundus of the stomach as well as the GE junction there was a moderate sized hiatal hernia there is no evidence of any blood in the stomach at all. Scope was then slowly withdrawn back through the lower esophageal sphincter up into the distal esophagus and that was examined noting mild distal esophagitis scope was then slowly withdrawn. Findings #1 no evidence of ongoing bleeding. 2. No evidence of ulcerations. 3. Mild distal esophagitis. 4. Moderate sized hiatal hernia.
[2019-08-12] MEDS ORDERED: NORMAL SALINE 1000 ML 1,000 ML IV PRN (15:26)
--- NOTE | 2019-08-12 15:26 | PDOC PROGRESS REPORT ---
Subjective Progress Note for:: 08/19/19 Subjective:: This is an 82-year-old male who was admitted for acute encephalopathy and was also in acute renal failure. Patient's main issue during this course has been his waxing and waning confusion. He has been n.p.o. during this course due to his encephalopathy. PICC line was placed yesterday for possible TPN. 08/09: Upon encounter, he appears comfortable on room air.No acute event overnight. He is oriented to person. He is able to follow simple commands on persistent prompting. He appears to have good dental attention and appears to be protecting his airway well. Hold off on TPN for now. Will have speech therapy reevaluate patient and possibly start him on an oral diet today. Discussed plan of care with /DPOA at bedside who is agreeable to plan. 08/10: Patient was reevaluated by speech therapy yesterday. He has slight improvement in his mentation and was able to follow commands yesterday. Diet has been advanced to liquids and ground meat solids with aspiration precautions. Upon encounter this morning, he remains oriented to person. He is a little more conversant and verbalizes he feels better today. Denies acute complaints. Later called by RN that patient vomited bright red clots. 08/11: No acute event overnight. No recurrence of hematemesis overnight. Blood pressures have been stable. His hemoglobin has been stable as well. His blood pressures have improved. However, he is more lethargic today. He is arousable and moans to painful stimuli. He was much more conversant and alert yesterday. Unable to pursue MRI due to issues with his stimulator. Will check an ABG and order a head CT. Patient reassessed at 3 pm and he is now completely awake and coherent. He is more conversant now than yesterday and is now oriented to person and place. He is laughing and denies any acute complaints. Suspect his waxing and waning mentation including his sleep pattern reversal is from acute delirium from his acute issues in a patient with possible early dementia. 08/12: No acute event overnight. He was sleepy on encounter earlier this morning but is arousable and secondary to person. Denies chest pain or shortness of breath. No recurrence of hematemesis. No melena. Scheduled for an EGD later today. Reason For Visit: HYPERTENSIVE ENCEPHALOPATHY Physical Exam Vital Signs: Temp Pulse Resp BP Pulse Ox 97.8 F 73 17 136/49 H 99 08/12/19 10:00 08/12/19 10:00 08/12/19 10:00 08/12/19 10:00 08/12/19 10:00 Intake & Output 08/11/19 08/12/19 08/13/19 06:59 06:59 06:59 Intake Total 2296 2560 100 Output Total 1675 1425 Balance 621 1135 100 Weight 184 lb 8.43 oz 194 lb 0.108 oz General appearance: PRESENT: no acute distress, well-developed, well-nourished Head exam: PRESENT: atraumatic, normocephalic Eye exam: PRESENT: conjunctiva pink, EOMI, PERRLA. ABSENT: scleral icterus Ear exam: PRESENT: normal external ear exam Mouth exam: PRESENT: moist, tongue midline Neck exam: ABSENT: carotid bruit, JVD, lymphadenopathy, thyromegaly Respiratory exam: PRESENT: clear to auscultation major. ABSENT: rales, rhonchi, wheezes Cardiovascular exam: PRESENT: RRR. ABSENT: diastolic murmur, rubs, systolic m urmur Pulses: PRESENT: normal dorsalis pedis pul GI/Abdominal exam: PRESENT: normal bowel sounds, soft. ABSENT: distended, guarding, mass, organolmegaly, rebound, tenderness Rectal exam: PRESENT: deferred Extremities exam: PRESENT: full ROM. ABSENT: calf tenderness, clubbing, pedal edema Neurological exam: PRESENT: alert, awake, oriented to person Results Laboratory Results: 08/11/19 05:17 08/11/19 05:17 08/11/19 11:25 Ammonia < 8.7 L 07/28/19 07/28/19 07/28/19 13:35 13:35 17:30 Creatine Kinase 134 Troponin I 0.050 0.052 NT-Pro-B Natriuret Pep 07/29/19 07/30/19 07/30/19 03:06 03:28 08:50 Creatine Kinase Troponin I Cancelled 0.079 Cancelled NT-Pro-B Natriuret Pep 770 H 07/30/19 09:40 Creatine Kinase Troponin I 0.048 NT-Pro-B Natriuret Pep Impressions: Abdomen/Pelvis CT 07/28/19 00:00 IMPRESSION: 3 mm stone distal left ureter. Mild hydronephrosis. Carotid Doppler Study 08/01/19 00:00 IMPRESSION: No hemodynamically significant stenosis on the left. Right side was not performed as described above. Head CTA 08/02/19 00: IMPRESSION: NO CTA EVIDENCE OF STENOSIS OR ANEURYSM OF THE [place] OF [place]. Lumbar Puncture 08/02/19: IMPRESSION: Lumbar puncture under fluoroscopy. No immediate complication. Neck CTA 08/02/19 IMPRESSION: Complex plaque in the right carotid bulb and proximal ICA with focal greater than 70% stenosis at the origin of the ICA best demonstrated on sagittal reconstructions. KUB X-Ray 08/04/19 00:00 IMPRESSION: Limited view of the abdomen demonstrates NG tube in place. The tip overlies the gastric fundus. Guidance Fluoroscopy 08/08/19 00: IMPRESSION: SUCCESSFUL PLACEMENT OF A 5 FR DUAL LUMEN 42 CM PICC IN THE LEFT BASILIC VEIN. Interventional Vascular Procedure 08/08/19 00:00 IMPRESSION: SUCCESSFUL PLACEMENT OF A 5 FR DUAL LUMEN 42 CM PICC IN THE LEFT BASILIC VEIN. PICC Line Insertion 08/08/19 00:00 IMPRESSION: SUCCESSFUL PLACEMENT OF A 5 FR DUAL LUMEN 42 CM PICC IN THE LEFT BASILIC VEIN. Chest X-Ray 08/10/19 12:28 IMPRESSION: NO ACUTE RADIOGRAPHIC FINDING IN THE CHEST. Head CT 08/11/19 13:05 IMPRESSION: CHRONIC CHANGES OF ATROPHY AND MICROVASCULAR ISCHEMIA. NO ACUTE PROCESS. EVIDENCE OF ACUTE STROKE: NO. Assessment and Plan - Diagnosis (1) Acute metabolic encephalopathy Is this a current diagnosis for this admission?: Yes Plan: Multifactorial from acute renal failure in a patient with early signs of possible dementia. says that that he has not been previously diagnosed with dementia but has been having some memory problems in the past few months. 1/2: Will check an ABG and order a head CT. Unable to pursue an MRI due to issues with his stimulator. 1/3: Suspect his waxing and waning mentation including his sleep pattern reversal is from acute delirium from his acute issues in a patient with possible early dementia. (2) Hypertensive encephalopathy Is this a current diagnosis for this admission?: Yes Plan: Currently on benazepril, hydralazine and atenolol. Blood pressures remain elevated. Will add amlodipine. 1/2: Blood pressures have significantly improved. (3) UGIB (upper gastrointestinal bleed) Is this a current diagnosis for this admission?: Yes Plan: Scheduled for an EGD by surgery. H&H have been stable. Plavix and SQ heparin have been held. 08/12: Going for EGD today. (4) Acute kidney injury superimposed on CKD Is this a current diagnosis for this admission?: Yes - Plan Summary Summary: 08/06/2019 Blood pressures are well controlled with systolic averaging now around 140 and diastolic around 60 Patient remains afebrile with temperatures 99 for the last 96 hours Pulse in the 70s or 80s O2 sat 98% on room air CBC shows a white count 11,100 H&H is stable at 13.6 and 40.6 Electrolytes are stable glucose around 120 Blood cultures negative x72 hours Patient had a CTA head scan done on 08/02/2019 showed no vascular abnormalities CT head scan done on showed chronic microvascular changes with atrophy Going to repeat the CT head scan today see if there is been any new appearance of ischemia Family is deciding on placement possible TPN nutrition 08/07/2019 Family has decided to go ahead with a PICC line for TPN This will be done on 08/08/2019 Labs will be rechecked tomorrow 08/08/2019 Patient appears to be a jail facility patient Patient only smiles or mumbles when spoken to. This is no change from the last several days 08/08/2019 Temperature 98.8 pulse between 65 and 80 blood pressure 156/53 White count 13,700 Chemistry panel from today is pending last set of electrolytes showed a slightly elevated BUN of 62 creatinine of 2.0 Patient is having PICC line placed today we will start TPN, this is been ordered. Patient's family has agreed to placement at [facility] Patient's paperwork has been submitted to [facility] today Patient's primary complaint is encephalopathy secondary to hypertensive crisis - Time Time Spent with patient: 25-34 minutes
[2019-08-12] MEDS: ATORVASTATIN CALCIUM 20 MG TABLET NG SCH (21:12)
[2019-08-13] MEDS: DEXTROSE 5%-WATER 1000 ML 1,000 ML IV PRN ×2 (00:31→11:19)
[2019-08-13] MEDS: NORMAL SALINE 100 ML with PANTOPRAZOLE SODIUM 80 MG IV PRN ×4 (00:31→11:15)
[2019-08-13] MEDS: HYDRALAZINE HCL INJ/PF 20 MG/1 ML SDV IV PRN (03:26)
[2019-08-13] MEDS: HYDRALAZINE HCL 25 MG TABLET PO SCH ×3 (05:01→21:03)
[2019-08-13 09:24] LABS: ABSOLUTE BASOPHILS # (AUTO) 0.1 10^3/uL (0.0-0.2); ABSOLUTE EOSINOPHILS # (AUTO) 0.2 10^3/uL (0.0-0.6); ABSOLUTE LYMPHOCYTES (AUTO) 1.7 10^3/uL (0.5-4.7); ABSOLUTE MONOCYTES (AUTO) 0.7 10^3/uL (0.1-1.4); BASOPHILS % (AUTO) 0.7 % (0-2); EOSINOPHILS % (AUTO) 2.9 % (0-6); HEMATOCRIT 26.6 % (37.9-51.0); HEMOGLOBIN 9.2 g/dL (13.5-17.0); LYMPHOCYTES % (AUTO) 22.3 % (13-45); MEAN CORPUSCULAR HEMOGLOBIN 30.1 pg (27.0-33.4); MEAN CORPUSCULAR HGB CONC 34.6 g/dL (32.0-36.0); MEAN CORPUSCULAR VOLUME 87 fl (80-97); MONOCYTES % (AUTO) 9.4 % (3-13); RED BLOOD COUNT 3.06 10^6/uL (4.35-5.55); RED CELL DISTRIBUTION WIDTH 14.2 % (11.5-14.0); SEGMENTED NEUTROPHILS % (AUTO) 64.7 % (42-78); TOTAL CELLS COUNTED % (AUTO) 100 %; WHITE BLOOD COUNT 7.7 10^3/uL (4.0-10.5)
[2019-08-13] MEDS: BENAZEPRIL HCL 20 MG TABLET NG SCH (09:32)
[2019-08-13] MEDS: SUCRALFATE 1 GM TABLET PO SCH ×4 (09:32→21:06)
[2019-08-13] MEDS: POTASSIUM CHLORIDE 20 MEQ PACKET NG SCH (09:32)
[2019-08-13] MEDS: TAMSULOSIN HCL 0.4 MG CAP.SR.24H PO SCH (09:32)
[2019-08-13] MEDS: AMLODIPINE BESYLATE 5 MG TABLET PO SCH (09:32)
[2019-08-13] MEDS: ATENOLOL 50 MG TABLET NG SCH (09:32)
[2019-08-13] MEDS: CARBOXYMETHYLCELLULOSE SOD 0.5% 0.4 ML DROPERETTE OU SCH ×2 (09:32→18:35)
[2019-08-13] MEDS: MULTIVITAMIN TABLET PO SCH (09:32)
[2019-08-13] MEDS: INSULIN LISPRO 100 UNIT/ML 3 ML VIAL SUBCUT SCH ×4 (09:33→21:03)
[2019-08-13 09:43] LABS: ANION GAP 8 (5-19); BLOOD UREA NITROGEN 19 mg/dL (7-20); CALCIUM 9.2 mg/dL (8.4-10.2); CARBON DIOXIDE 22 mmol/L (22-30); CHLORIDE 109 mmol/L (98-107); GLUCOSE 108 mg/dL (75-110); POTASSIUM 3.5 mmol/L (3.6-5.0)
[2019-08-13 10:10] LABS: PLATELET COUNT 188 10^3/uL (150-450)
--- NOTE | 2019-08-13 14:13 | PDOC PROGRESS REPORT ---
Subjective Progress Note for:: 08/13/19 Subjective:: This is an 82-year-old male who was admitted for acute encephalopathy and was also in acute renal failure. Patient's main issue during this course has been his waxing and waning confusion. He has been n.p.o. during this course due to his encephalopathy. PICC line was placed yesterday for possible TPN. 08/09: Upon encounter, he appears comfortable on room air.No acute event overnight. He is oriented to person. He is able to follow simple commands on persistent prompting. He appears to have good dental attention and appears to be protecting his airway well. Hold off on TPN for now. Will have speech therapy reevaluate patient and possibly start him on an oral diet today. Discussed plan of care with /DPOA at bedside who is agreeable to plan. 08/10: Patient was reevaluated by speech therapy yesterday. He has slight improvement in his mentation and was able to follow commands yesterday. Diet has been advanced to liquids and ground meat solids with aspiration precautions. Upon encounter this morning, he remains oriented to person. He is a little more conversant and verbalizes he feels better today. Denies acute complaints. Later called by RN that patient vomited bright red clots. 08/11: No acute event overnight. No recurrence of hematemesis overnight. Blood pressures have been stable. His hemoglobin has been stable as well. His blood pressures have improved. However, he is more lethargic today. He is arousable and moans to painful stimuli. He was much more conversant and alert yesterday. Unable to pursue MRI due to issues with his stimulator. Will check an ABG and order a head CT. Patient reassessed at 3 pm and he is now completely awake and coherent. He is more conversant now than yesterday and is now oriented to person and place. He is laughing and denies any acute complaints. Suspect his waxing and waning mentation including his sleep pattern reversal is from acute delirium from his acute issues in a patient with possible early dementia. 08/12: He was sleepy on encounter earlier this morning but is arousable and secondary to person. Denies chest pain or shortness of breath. No recurrence of hematemesis. No melena. Scheduled for an EGD later today. 08/13: No acute event overnight. Had an EGD done yesterday which showed esophagitis. No recurrence of hematemesis. Hemoglobin has been stable. He is fully awake and conversant upon encounter this morning. He is smiling and denies any acute complaints. He is oriented to person. He is medically stable to be discharged to SNF. Reason For Visit: HYPERTENSIVE ENCEPHALOPATHY Physical Exam Vital Signs: Temp Pulse Resp BP Pulse Ox 97.8 F 59 L 17 128/51 H 99 08/13/19 11:48 08/13/19 11:48 08/13/19 11:48 08/13/19 11:48 08/13/19 11:48 Intake & Output 08/12/19 08/13/19 08/14/19 06:59 06:59 06:59 Intake Total 2560 1200 1460 Output Total 1425 900 200 Balance 3274 258 5010 Weight 194 lb 0.108 oz 194 lb 0.108 oz 194 lb 0.108 oz General appearance: PRESENT: no acute distress, well-developed, well-nourished Head exam: PRESENT: atraumatic, normocephalic Eye exam: PRESENT: conjunctiva pink, EOMI, PERRLA. ABSENT: scleral icterus Ear exam: PRESENT: normal external ear exam Mouth exam: PRESENT: moist, tongue midline Neck exam: ABSENT: carotid bruit, JVD, lymphadenopathy, thyromegaly Respiratory exam: PRESENT: clear to auscultation major. ABSENT: rales, rhonchi, wheezes Cardiovascular exam: PRESENT: RRR. ABSENT: diastolic murmur, rubs, systolic murmur Pulses: PRESENT: normal dorsalis pedis pul GI/Abdominal exam: PRESENT: normal bowel sounds, soft. ABSENT: distended, guarding, mass, organolmegaly, rebound, tenderness Rectal exam: PRESENT: deferred Neurological exam: PRESENT: alert, awake, oriented to person, CN II-XII grossly intact. ABSENT: motor sensory deficit Results Laboratory Results: 08/13/19 08:45 08/13/19 08:45 08/13/19 08/13/19 08:45 08:45 WBC 7.7 RBC 3.06 L Hgb 9.2 L Hct 26.6 L MCV 87 MCH 30.1 MCHC 34.6 RDW 14.2 H Plt Count 188 Seg Neutrophils % 64.7 Sodium 139.0 Potassium 3.5 L Chloride 109 H Carbon Dioxide 22 Anion Gap 8 BUN 19 Creatinine 1.37 H Est GFR ( Amer) > 60 Glucose 108 Calcium 9.2 07/28/19 07/28/19 07/28/19 13:35 13:35 17:30 Creatine Kinase 134 Troponin I 0.050 0.052 NT-Pro-B Natriuret Pep 07/29/19 07/30/19 07/30/19 03:06 03:28 08:50 Creatine Kinase Troponin I Cancelled 0.079 Cancelled NT-Pro-B Natriuret Pep 770 H 07/30/19 09:40 Creatine Kinase Troponin I 0.048 NT-Pro-B Natriuret Pep Impressions: Abdomen/Pelvis CT 07/28/19 00:00 IMPRESSION: 3 mm stone distal left ureter. Mild hydronephrosis. Carotid Doppler Study 08/01/19 00:00 IMPRESSION: No hemodynamically significant stenosis on the left. Right side was not performed as described above. Head CTA 08/02/19 00:00 IMPRESSION: NO CTA EVIDENCE OF STENOSIS OR ANEURYSM OF THE [place]. Lumbar Puncture 08/02/19 00:00 IMPRESSION: Lumbar puncture under fluoroscopy. No immediate complication. Neck CTA 08/02/19 00:00 IMPRESSION: Complex plaque in the right carotid bulb and proximal ICA with focal greater than 70% stenosis at the origin of the ICA best demonstrated on sagittal reconstructions. KUB X-Ray 08/04/19 00:00 IMPRESSION: Limited view of the abdomen demonstrates NG tube in place. The tip overlies the gastric fundus. Guidance Fluoroscopy 08/08/19 00:00 IMPRESSION: SUCCESSFUL PLACEMENT OF A 5 FR DUAL LUMEN 42 CM PICC IN THE LEFT BASILIC VEIN. Interventional Vascular Procedure 08/08/19 00:00 IMPRESSION: SUCCESSFUL PLACEMENT OF A 5 FR DUAL LUMEN 42 CM PICC IN THE LEFT BASILIC VEIN. PICC Line Insertion 08/08/19 00:00 IMPRESSION: SUCCESSFUL PLACEMENT OF A 5 FR DUAL LUMEN 42 CM PICC IN THE LEFT BASILIC VEIN. Chest X-Ray 08/10/19 12:28 IMPRESSION: NO ACUTE RADIOGRAPHIC FINDING IN THE CHEST. Head CT 08/11/19 13:05 IMPRESSION: CHRONIC CHANGES OF ATROPHY AND MICROVASCULAR ISCHEMIA. NO ACUTE PROCESS. EVIDENCE OF ACUTE STROKE: NO. Assessment and Plan - Diagnosis (1) Acute metabolic encephalopathy Is this a current diagnosis for this admission?: Yes Plan: Multifactorial from acute renal failure in a patient with early signs of possible dementia. says that that he has not been previously diagnosed with dementia but has been having some memory problems in the past few months. 2: Will check an ABG and order a head CT. Unable to pursue an MRI due to issues with his stimulator. 08/12: Suspect his waxing and waning mentation including his sleep pattern reversal is from acute delirium from his acute issues in a patient with possible early dementia. 08/13: Stable. (2) Hypertensive encephalopathy Is this a current diagnosis for this admission?: Yes Plan: Currently on benazepril, hydralazine and atenolol. Blood pressures remain elevated. Will add amlodipine. 08/11: Blood pressures have significantly improved. 08/13: Continue current regimen. (3) UGIB (upper gastrointestinal bleed) Is this a current diagnosis for this admission?: Yes Plan: Scheduled for an EGD by surgery. H&H have been stable. Plavix and SQ heparin have been held. 08/12: Going for EGD today. 08/13: Had an EGD done yesterday which showed esophagitis. No recurrence of hematemesis. Hemoglobin has been stable. (4) Acute kidney injury superimposed on CKD Is this a current diagnosis for this admission?: Yes Plan: Resolving with IV fluids. - Plan Summary Summary: 08/06/2019 Blood pressures are well controlled with systolic averaging now around 140 and diastolic around 60 Patient remains afebrile with temperatures 99 for the last 96 hours Pulse in the 70s or 80s O2 sat 98% on room air CBC shows a white count 11,100 H&H is stable at 13.6 and 40.6 Electrolytes are stable glucose around 120 Blood cultures negative x72 hours Patient had a CTA head scan done on 08/02/2019 showed no vascular abnormalities CT head scan done on showed chronic microvascular changes with atrophy Going to repeat the CT head scan today see if there is been any new appearance of ischemia Family is deciding on placement possible TPN nutrition 08/07/2019 Family has decided to go ahead with a PICC line for TPN This will be done on 08/08/2019 Labs will be rechecked tomorrow 08/08/2019 Patient appears to be a senior care facility patient Patient only smiles or mumbles when spoken to. This is no change from the last several days 08/08/2019 Temperature 98.8 pulse between 65 and 80 blood pressure 156/53 White count 13,700 Chemistry panel from today is pending last set of electrolytes showed a slightly elevated BUN of 62 creatinine of 2.0 Patient is having PICC line placed today we will start TPN, this is been ordered. Patient's family has agreed to placement at [facility] Patient's paperwork has been submitted to [facility] today Patient's primary complaint is encephalopathy secondary to hypertensive crisis - Time Time Spent with patient: 25-34 minutes
[2019-08-13] MEDS: POTASSIUM CHLORIDE 10 MEQ TABLET.ER PO SCH (15:27)
[2019-08-13] MEDS: ATORVASTATIN CALCIUM 20 MG TABLET NG SCH (21:06)
[2019-08-14] MEDS: HYDRALAZINE HCL 25 MG TABLET PO SCH ×3 (05:28→21:14)
[2019-08-14 07:06] LABS: ANION GAP 7 (5-19); BLOOD UREA NITROGEN 17 mg/dL (7-20); CALCIUM 9.3 mg/dL (8.4-10.2); CARBON DIOXIDE 23 mmol/L (22-30); CHLORIDE 111 mmol/L (98-107); GLUCOSE 98 mg/dL (75-110); POTASSIUM 3.8 mmol/L (3.6-5.0)
[2019-08-14] MEDS: SUCRALFATE 1 GM TABLET PO SCH ×4 (08:36→21:32)
[2019-08-14] MEDS: INSULIN LISPRO 100 UNIT/ML 3 ML VIAL SUBCUT SCH ×4 (08:36→21:49)
[2019-08-14] MEDS: CARBOXYMETHYLCELLULOSE SOD 0.5% 0.4 ML DROPERETTE OU SCH ×2 (10:00→17:18)
[2019-08-14] MEDS: BENAZEPRIL HCL 20 MG TABLET NG SCH (10:00)
[2019-08-14] MEDS: AMLODIPINE BESYLATE 5 MG TABLET PO SCH (10:00)
[2019-08-14] MEDS: ATENOLOL 50 MG TABLET NG SCH (10:00)
[2019-08-14] MEDS: POTASSIUM CHLORIDE 10 MEQ TABLET.ER PO SCH (10:00)
[2019-08-14] MEDS: MULTIVITAMIN TABLET PO SCH (10:00)
[2019-08-14] MEDS: TAMSULOSIN HCL 0.4 MG CAP.SR.24H PO SCH (10:00)
--- NOTE | 2019-08-14 13:27 | PDOC PROGRESS REPORT ---
Subjective Progress Note for:: 08/14/19 Subjective:: This is an 82-year-old male who was admitted for acute encephalopathy and was also in acute renal failure. Patient's main issue during this course has been his waxing and waning confusion. He has been n.p.o. during this course due to his encephalopathy. PICC line was placed yesterday for possible TPN. 08/09: Upon encounter, he appears comfortable on room air.No acute event overnight. He is oriented to person. He is able to follow simple commands on persistent prompting. He appears to have good dental attention and appears to be protecting his airway well. Hold off on TPN for now. Will have speech therapy reevaluate patient and possibly start him on an oral diet today. Discussed plan of care with /DPOA at bedside who is agreeable to plan. 08/10: Patient was reevaluated by speech therapy yesterday. He has slight improvement in his mentation and was able to follow commands yesterday. Diet has been advanced to liquids and ground meat solids with aspiration precautions. Upon encounter this morning, he remains oriented to person. He is a little more conversant and verbalizes he feels better today. Denies acute complaints. Later called by RN that patient vomited bright red clots. 08/11: No acute event overnight. No recurrence of hematemesis overnight. Blood pressures have been stable. His hemoglobin has been stable as well. His blood pressures have improved. However, he is more lethargic today. He is arousable and moans to painful stimuli. He was much more conversant and alert yesterday. Unable to pursue MRI due to issues with his stimulator. Will check an ABG and order a head CT. Patient reassessed at 3 pm and he is now completely awake and coherent. He is more conversant now than yesterday and is now oriented to person and place. He is laughing and denies any acute complaints. Suspect his waxing and waning mentation including his sleep pattern reversal is from acute delirium from his acute issues in a patient with possible early dementia. 08/12: He was sleepy on encounter earlier this morning but is arousable and secondary to person. Denies chest pain or shortness of breath. No recurrence of hematemesis. No melena. Scheduled for an EGD later today. 08/13: He had an EGD done yesterday which showed esophagitis. No recurrence of hematemesis. Hemoglobin has been stable. He is fully awake and conversant u alirio encounter this morning. He is smiling and denies any acute complaints. He is oriented to person. He is medically stable to be discharged to SNF. 08/14: No acute event overnight. Denies acute complaints. He has occasional waxing and waning episodes of confusion suggestive of owning in between lucid intervals of being oriented to person and place. Hemoglobin has been stable. No bleeding issues. Off restraints and was transferred to recliner today. Awaiting placement and acceptance to [facility]. Reason For Visit: HYPERTENSIVE ENCEPHALOPATHY Physical Exam Vital Signs: Temp Pulse Resp BP Pulse Ox 97.5 F 64 14 158/62 H 90 L 08/14/19 12:01 08/14/19 12:01 08/14/19 12:01 08/14/19 12:01 08/14/19 12:01 Intake & Output 08/13/19 08/14/19 08/15/19 06:59 06:59 06:59 Intake Total 1200 2693 788 Output Total 900 1600 0 Balance 300 1093 788 Weight 194 lb 0.108 oz 185 lb 13.595 oz General appearance: PRESENT: no acute distress Head exam: PRESENT: atraumatic, normocephalic Eye exam: PRESENT: conjunctiva pink, EOMI, PERRLA. ABSENT: scleral icterus Ear exam: PRESENT: normal external ear exam Mouth exam: PRESENT: moist, tongue midline Neck exam: ABSENT: carotid bruit, JVD, lymphadenopathy, thyromegaly Respiratory exam: PRESENT: clear to auscultation major. ABSENT: rales, rhonchi, wheezes Cardiovascular exam: PRESENT: RRR. ABSENT: diastolic murmur, rubs, systolic murmur Pulses: PRESENT: normal dorsalis pedis pul GI/Abdominal exam: PRESENT: normal bowel sounds, soft. ABSENT: distended, guarding, mass, organolmegaly, rebound, tenderness Rectal exam: PRESENT: deferred Neurological exam: PRESENT: alert, awake, oriented to person, CN II-XII grossly intact. ABSENT: motor sensory deficit Results Laboratory Results: 08/13/19 08:45 08/14/19 06:15 08/14/19 06:15 Sodium 140.5 Potassium 3.8 Chloride 111 H Carbon Dioxide 23 Anion Gap 7 BUN 17 Creatinine 1.43 H Est GFR ( Amer) 57 L Glucose 98 Calcium 9.3 07/28/19 07/28/19 07/28/19 13:35 13:35 17:30 Creatine Kinase 134 Troponin I 0.050 0.052 NT-Pro-B Natriuret Pep 07/29/19 07/30/19 07/30/19 03:06 03:28 08:50 Creatine Kinase Troponin I Cancelled 0.079 Cancelled NT-Pro-B Natriuret Pep 770 H 07/30/19 09:40 Creatine Kinase Troponin I 0.048 NT-Pro-B Natriuret Pep Impressions: Abdomen/Pelvis CT 07/28/19 00:00 IMPRESSION: 3 mm stone distal left ureter. Mild hydronephrosis. Carotid Doppler Study 08/01/19 00:00 IMPRESSION: No hemodynamically significant stenosis on the left. Right side was not performed as described above. Head CTA 08/02/19 00:00 IMPRESSION: NO CTA EVIDENCE OF STENOSIS OR ANEURYSM OF THE [place]. Lumbar Puncture 08/02/19 00:00 IMPRESSION: Lumbar puncture under fluoroscopy. No immediate complication. Neck CTA 08/02/19 00:00 IMPRESSION: Complex plaque in the right carotid bulb and proximal ICA with focal greater than 70% stenosis at the origin of the ICA best demonstrated on sagittal reconstructions. KUB X-Ray 08/04/19 00:00 IMPRESSION: Limited view of the abdomen demonstrates NG tube in place. The tip overlies the gastric fundus. Guidance Fluoroscopy 08/08/19 00:00 IMPRESSION: SUCCESSFUL PLACEMENT OF A 5 FR DUAL LUMEN 42 CM PICC IN THE LEFT BASILIC VEIN. Interventional Vascular Procedure 08/08/19 00:00 IMPRESSION: SUCCESSFUL PLACEMENT OF A 5 FR DUAL LUMEN 42 CM PICC IN THE LEFT BASILIC VEIN. PICC Line Insertion 08/08/19 00:00 IMPRESSION: SUCCESSFUL PLACEMENT OF A 5 FR DUAL LUMEN 42 CM PICC IN THE LEFT BASILIC VEIN. Chest X-Ray 08/10/19 12:28 IMPRESSION: NO ACUTE RADIOGRAPHIC FINDING IN THE CHEST. Head CT 08/11/19 13:05 IMPRESSION: CHRONIC CHANGES OF ATROPHY AND MICROVASCULAR ISCHEMIA. NO ACUTE PROCESS. EVIDENCE OF ACUTE STROKE: NO. Assessment and Plan - Diagnosis (1) Acute metabolic encephalopathy Is this a current diagnosis for this admission?: Yes Plan: Multifactorial from acute renal failure in a patient with early signs of possible dementia. says that that he has not been previously diagnosed with dementia but has been having some memory problems in the past few months. 12: Will check an ABG and order a head CT. Unable to pursue an MRI due to issues with his stimulator. 08/12: Suspect his waxing and waning mentation including his sleep pattern reversal is from acute delirium from his acute issues in a patient with possible early dementia. 08/13: Stable. (2) Hypertensive encephalopathy Is this a current diagnosis for this admission?: Yes Plan: Currently on benazepril, hydralazine and atenolol. Blood pressures remain elevated. Will add amlodipine. 08/11: Blood pressures have significantly improved. 08/13: Continue current regimen. (3) UGIB (upper gastrointestinal bleed) Is this a current diagnosis for this admission?: Yes Plan: Scheduled for an EGD by surgery. H&H have been stable. Plavix and SQ heparin have been held. 08/12: Going for EGD today. 08/13: Had an EGD done yesterday which showed esophagitis. No recurrence of hematemesis. Hemoglobin has been stable. 08/14: Protonix switched to PO. (4) Acute kidney injury superimposed on CKD Is this a current diagnosis for this admission?: Yes Plan: Resolving with IV fluids. 08/14: Creatinine stable. - Plan Summary Summary: 08/06/2019 Blood pressures are well controlled with systolic averaging now around 140 and diastolic around 60 Patient remains afebrile with temperatures 99 for the last 96 hours Pulse in the 70s or 80s O2 sat 98% on room air CBC shows a white count 11,100 H&H is stable at 13.6 and 40.6 Electrolytes are stable glucose around 120 Blood cultures negative x72 hours Patient had a CTA head scan done on 08/02/2019 showed no vascular abnormalities CT head scan done on showed chronic microvascular changes with atrophy Going to repeat the CT head scan today see if there is been any new appearance of ischemia Family is deciding on placement possible TPN nutrition 08/07/2019 Family has decided to go ahead with a PICC line for TPN This will be done on 08/08/2019 Labs will be rechecked tomorrow 08/08/2019 Patient appears to be a halfway facility patient Patient only smiles or mumbles when spoken to. This is no change from the last several days 08/08/2019 Temperature 98.8 pulse between 65 and 80 blood pressure 156/53 White count 13,700 Chemistry panel from today is pending last set of electrolytes showed a slightly elevated BUN of 62 creatinine of 2.0 Patient is having PICC line placed today we will start TPN, this is been ordered. Patient's family has agreed to placement at [facility] Patient's paperwork has been submitted to [facility] today Patient's primary complaint is encephalopathy secondary to hypertensive crisis - Time Time Spent with patient: 25-34 minutes
[2019-08-14] MEDS: ATORVASTATIN CALCIUM 20 MG TABLET NG SCH (21:32)
[2019-08-15] MEDS: HYDRALAZINE HCL 25 MG TABLET PO SCH ×2 (05:01→13:04)
[2019-08-15] MEDS ORDERED: PANTOPRAZOLE SODIUM 40 MG TABLET.DR PO SCH (06:00)
[2019-08-15] MEDS: INSULIN LISPRO 100 UNIT/ML 3 ML VIAL SUBCUT SCH ×2 (08:10→12:02)
[2019-08-15] MEDS ORDERED: BENAZEPRIL HCL 20 MG TABLET PO SCH (10:00)
[2019-08-15] MEDS ORDERED: ATENOLOL 50 MG TABLET PO SCH (10:00)
[2019-08-15] MEDS: SUCRALFATE 1 GM TABLET PO SCH ×2 (12:00→12:01)
[2019-08-15] MEDS: TAMSULOSIN HCL 0.4 MG CAP.SR.24H PO SCH (12:01)
[2019-08-15] MEDS: MULTIVITAMIN TABLET PO SCH (12:01)
[2019-08-15] MEDS: POTASSIUM CHLORIDE 10 MEQ TABLET.ER PO SCH (12:01)
[2019-08-15] MEDS: CARBOXYMETHYLCELLULOSE SOD 0.5% 0.4 ML DROPERETTE OU SCH (12:01)
[2019-08-15 12:06] VITALS: BP 158/50
[2019-08-15] MEDS: CLOPIDOGREL BISULFATE 75 MG TABLET PO SCH (12:25)
[2019-08-15] MEDS: AMLODIPINE BESYLATE 5 MG TABLET PO SCH (12:25)
[2019-08-15] MEDS: HEPARIN SOD (PORCINE) 5,000 UNIT/ML 1 ML VIAL SUBCUT SCH (13:04)
--- NOTE | 2019-08-15 13:10 | PDOC TRANSFER SUMMARY ---
Impression - Admit/DC Date/PCP Admission Date/Primary Care Provider: 07/28/19 22:02 Discharge Date: 08/15/19 - Discharge Diagnosis (1) Acute metabolic encephalopathy Is this a current diagnosis for this admission?: Yes (2) Hypertensive encephalopathy Is this a current diagnosis for this admission?: Yes (3) UGIB (upper gastrointestinal bleed) Is this a current diagnosis for this admission?: Yes (4) Acute kidney injury superimposed on CKD Is this a current diagnosis for this admission?: Yes - Additional Information Resuscitation Status: Do Not Resuscitate Referrals: MATT CORDOVA MD [ACTIVE STAFF] - Follow up as needed Prescriptions: Potassium Chloride [Klor-Con 10 Meq Tablet ER] 10 meq PO DAILY #10 tablet.er Amlodipine Besylate [Norvasc 10 mg Tablet] 10 mg PO DAILY #30 tablet Pantoprazole Sodium [Protonix [address] Tablet] 40 mg PO QAM #60 tablet.dr Metoprolol Succinate [Toprol Xl 50 mg Tab.sr] 50 mg PO DAILY #30 tab.sr.24h Home Medications: Clopidogrel Bisulfate [Plavix 75 mg Tablet] 75 mg PO Q2DAYS 07/28/19 Finasteride [Proscar 5 mg Tablet] 5 mg PO DAILY 07/28/19 Krill/Shannon-3/Dha/Epa/Lipids [Shannon-3 Krill Oil 500 mg Sfgl] 1 cap PO Q2DAYS Metoprolol Succinate [Toprol Xl 25 mg Tab.sr] 25 mg PO DAILY 07/28/19 Multivitamin [Daily Multiple Vitamin] 1 tab PO DAILY 07/28/19 Nitroglycerin [Nitrostat 0.4 mg (1/150 Gr) Tabs 25/Bottle] 0.4 mg SL Q5MP PRN 07/28/19 Rosuvastatin Calcium [Crestor 10 mg Tablet] 10 mg PO QHS 07/28/19 Tamsulosin HCl [Flomax 0.4 mg Cap.sr] 0.4 mg PO DAILY 07/28/19 Ubidecarenone [Coq-10] 300 mg PO DAILY 07/28/19 Amlodipine Besylate [Norvasc 10 mg Tablet] 10 mg PO DAILY #30 tablet 08/15/19 Metoprolol Succinate [Toprol Xl 50 mg Tab.sr] 50 mg PO DAILY #30 tab.sr.24h 08/15/19 Pantoprazole Sodium [Protonix [address] Tablet] 40 mg PO QAM #60 tablet.dr 08/15/19 Potassium Chloride [Klor-Con 10 Meq Tablet ER] 10 meq PO DAILY #10 tablet.er 08/15/19 History of Present Illiness History of Present Illness: Admitting Provider's H&P: Mr. Dominique is an 84-year-old male with a past medical history of hypertension, CAD status post 4 coronary stents in the past, CKD, and optic nerve stroke in 2001 who presented to [facility] with altered mental status and hypertensive emergency. Mrs. Dominique found her on the floor next to his recliner after last seeing him normal at approximately 11 PM last night. His ambulation and strength has progressively gotten worse though is not acute, for which he could not make it to the bedroom and decided to sleep in the recliner overnight. Patient's denies Mr. Dominique having dementia but does report he has some recent mild memory difficulty. Patient has reportedly had intermittent nausea and vomiting the past 2 days for which his describes it as brown, but denies a coffee-ground appearance in the emesis. He is also had generalized abdominal pain that is not acute for which he does not guard his abdomen, have rebound tenderness, or display signs of peritonitis. CT head reveals no acute stroke, though there is chronic microvascular ischemia and atrophy. Chest x-ray is without an acute intrapulmonary process. CT abdomen/pelvis demonstrates no acute surgical abdomen, though there is evidence of cholelithiasis without cholecystitis, diverticulosis, enlarged prostate, atherosclerosis of the aorta and iliac arteries, a distal left ureteral calculus with mild hydronephrosis as well as an incidental finding of a pericardial cyst. Mr. Dominique will be admitted to ICU for serial neuro exams and hemodynamic instability requiring a Cardene infusion to control his blood pressure. Hospital Course Hospital Course: This is an 82-year-old male who was admitted for acute encephalopathy and was also in acute renal failure. He was admitted for hypertensive encephalopathy. He was initially managed in the ICU. CT of the brain was unremarkable. He also had a lumbar puncture which was unremarkable. MRI was ordered but this was not feasible as he has a spinal stimulator. Patient's initial primary issue during this course has been his waxing and waning confusion. He has been n.p.o. during this course due to his encephalopathy. He did have improvement in his mentation and was reevaluated by speech therapy. His diet was subsequently advanced and he was tolerating oral diet well with patient precautions. He did have an episode of hematemesis and was seen by the surgicalist. He underwent an EGD which showed distal esophagitis. He was also started on Protonix. He did not have any recurrent episode of hematemesis. His hemoglobin has been stable. Suspect his waxing and waning mentation including his sleep pattern reversal is from acute delirium from his acute issues in a patient with possible early dementia. His antihypertensive regimen was also adjusted. He will be discharged to [facility] continue blood pressure monitoring and appropriate adjustment of his antihypertensive regimen. Physical Exam Vital Signs: Temp Pulse Resp BP Pulse Ox 98.0 F 73 16 148/58 H 100 08/15/19 07:48 08/15/19 07:48 08/15/19 07:48 08/15/19 07:48 08/15/19 07:48 Intake & Output 08/14/19 08/15/19 08/16/19 06:59 06:59 06:59 Intake Total 2693 1028 Output Total 1600 0 Balance 1093 1028 Weight 185 lb 13.595 oz 186 lb 15.232 oz Results Laboratory Results: WBC 7.7 10^3/uL (4.0-10.5) 08/13/19 08:45 RBC 3.06 10^6/uL (4.35-5.55) L 08/13/19 08:45 Hgb 9.2 g/dL (13.5-17.0) L 08/13/19 08:45 Hct 26.6 % (37.9-51.0) L 08/13/19 08:45 MCV 87 fl (80-97) 08/13/19 08:45 MCH 30.1 pg (27.0-33.4) 08/13/19 08:45 MCHC 34.6 g/dL (32.0-36.0) 08/13/19 08:45 RDW 14.2 % (11.5-14.0) H 08/13/19 08:45 Plt Count 188 10^3/uL (150-450) 08/13/19 08:45 Lymph % (Auto) 22.3 % (13-45) 08/13/19 08:45 [place] % (Auto) 9.4 % (3-13) 08/13/19 08:45 Eos % (Auto) 2.9 % (0-6) 08/13/19 08:45 Baso % (Auto) 0.7 % (0-2) 08/13/19 08:45 Absolute Neuts (auto) 5.0 10^3/uL (1.7-8.2) 08/13/19 08:45 Absolute Lymphs (auto) 1.7 10^3/uL (0.5-4.7) 08/13/19 08:45 Absolute Monos (auto) 0.7 10^3/uL (0.1-1.4) 08/13/19 08:45 Absolute Eos (auto) 0.2 10^3/uL (0.0-0.6) 08/13/19 08:45 Absolute Basos (auto) 0.1 10^3/uL (0.0-0.2) 08/13/19 08:45 Total Counted 100 08/11/19 05:17 Seg Neutrophils % 64.7 % (42-78) 08/13/19 08:45 Seg Neuts % (Manual) 80 % (42-78) H 08/11/19 05:17 Band Neutrophils % 5 % (3-5) 07/29/19 03:06 Lymphocytes % (Manual) 14 % (13-45) 08/11/19 05:17 Monocytes % (Manual) 6 % (3-13) 08/11/19 05:17 Eosinophils % (Manual) 0 % (0-6) 08/11/19 05:17 Basophils % (Manual) 0 % (0-2) 08/11/19 05:17 Abs Neuts (Manual) 6.7 10^3/uL (1.7-8.2) 08/11/19 05:17 Abs Lymphs (Manual) 1.2 10^3/uL (0.5-4.7) 08/11/19 05:17 Abs Monocytes (Manual) 0.5 10^3/uL (0.1-1.4) 08/11/19 05:17 Absolute Eos (Manual) 0.0 10^3/uL (0.0-0.6) 08/11/19 05:17 Abs Basophils (Manual) 0.0 10^3/uL (0.0-0.2) 08/11/19 05:17 Platelet Comment ADEQUATE 08/11/19 05:17 Polychromasia SLIGHT 08/11/19 05:17 Anisocytosis SLIGHT 08/11/19 05:17 Tear Drop Cells SLIGHT 07/28/19 18:27 Ovalocytes SLIGHT 08/11/19 05:17 ESR 6 mm/hr (0-20) 07/29/19 08:44 Serum Viscosity 1.5 rel.saline (1.6-1.9) L 07/30/19 19:44 PT 15.2 SEC (11.4-15.4) 08/08/19 18:18 INR 1.19 08/08/19 18:18 APTT 43.1 SEC (23.5-35.8) H 08/08/19 18:18 Carbonic Acid 1.04 mmol/L (1.05-1.35) L 08/11/19 11:14 HCO3/H2CO3 Ratio 20:1 08/11/19 11:14 ABG pH 7.42 (7.35-7.45) 08/11/19 11:14 ABG pCO2 34.4 mmHg (35-45) L 08/11/19 11:14 ABG pO2 98.9 mmHg (80-100) 08/11/19 11:14 ABG HCO3 21.6 mmol/L (20-24) 08/11/19 11:14 ABG Total CO2 22.6 mmol/L (23-27) L 08/11/19 11:14 ABG O2 Saturation 97.6 % (94-98) 08/11/19 11:14 ABG Base Excess -2.6 mmol/L 08/11/19 11:14 FiO2 ROOM AIR 08/11/19 11:14 Sodium 140.5 mmol/L (137-145) 08/14/19 06:15 Potassium 3.8 mmol/L (3.6-5.0) 08/14/19 06:15 Chloride 111 mmol/L (98-107) H 08/14/19 06:15 Carbon Dioxide 23 mmol/L (22-30) 08/14/19 06:15 Anion Gap 7 (5-19) 08/14/19 06:15 BUN 17 mg/dL (7-20) 08/14/19 06:15 Creatinine 1.43 mg/dL (0.52-1.25) H 08/14/19 06:15 Est GFR ( Amer) 57 (>60) L 08/14/19 06:15 Est GFR (Non-Af Amer) Cancelled 07/30/19 08:50 Est GFR (MDRD) Non-Af 47 (>60) L 08/14/19 06:15 Glucose 98 mg/dL (75-110) 08/14/19 06:15 POC Glucose 114 mg/dL (70-110) H 08/15/19 11:27 Hemoglobin A1c % 5.8 % (4.7-6.0) 07/29/19 08:44 Lactic Acid 0.7 mmol/L (0.7-2.1) 07/31/19 18:00 Calcium 9.3 mg/dL (8.4-10.2) 08/14/19 06:15 Phosphorus 3.1 mg/dL (2.5-4.5) 08/01/19 04:31 Magnesium 2.1 mg/dL (1.6-2.3) 08/01/19 04:31 Erythropoietin 6.1 mIU/mL (2.6-18.5) 07/29/19 08:44 Total Bilirubin 0.7 mg/dL (0.2-1.3) 08/06/19 18:35 Direct Bilirubin 0.4 mg/dL (0.0-0.4) 08/06/19 18:35 Neonat Total Bilirubin Not Reportable 08/06/19 18:35 Neonat Direct Bilirubin Not Reportable 08/06/19 18:35 Neonat Indirect Bili Not Reportable 08/06/19 18:35 AST 34 U/L (17-59) 08/06/19 18:35 ALT 24 U/L (<50) 08/06/19 18:35 Alkaline Phosphatase 63 U/L (38-126) 08/06/19 18:35 Ammonia < 8.7 umol/L (9-33) L 08/11/19 11:25 Creatine Kinase 134 U/L (55-170) 07/28/19 13:35 Troponin I 0.048 ng/mL 07/30/19 09:40 C-Reactive Protein 44.1 mg/L (<10.0) H 07/29/19 08:44 NT-Pro-B Natriuret Pep 770 pg/mL (<450) H 07/30/19 03:28 Total Protein 5.0 g/dL (6.3-8.2) L 08/06/19 18:35 Albumin 2.5 g/dL (3.5-5.0) L 08/06/19 18:35 Globulin 2.0 g/dL (2.2-3.9) L 07/30/19 19:57 Alb/Glob Ratio Alt Meth 1.5 (0.7-1.7) 07/30/19 19:57 Gmhua-5-Croiovqri 0.3 g/dL (0.0-0.4) 07/30/19 19:57 Eapuv-2-Dmtmwggzu 0.6 g/dL (0.4-1.0) 07/30/19 19:57 Beta Globulins 0.6 g/dL (0.7-1.3) L 07/30/19 19:57 Gamma Globulins 0.5 g/dL (0.4-1.8) 07/30/19 19:57 M-Matt Not Observed g/dL (Not Observ) 07/30/19 19:57 Lipase 56.0 U/L (23-300) 07/28/19 13:35 EGFR Cancelled 07/30/19 08:50 TSH 0.33 uIU/mL (0.47-4.68) L 08/03/19 04:20 Free T4 2.51 ng/dL (0.78-2.19) H 07/29/19 03:06 Free T3 pg/mL 3.25 pg/mL (2.77-5.27) 07/29/19 03:06 Immunoglobulin A 153 mg/dL (61-437) 07/30/19 19:57 Immunoglobulin G 546 mg/dL (700-1600) L 07/30/19 19:57 Immunoglobulin M 34 mg/dL (15-143) 07/30/19 19:57 Serum Immunofixation Comment (.) 07/30/19 19:57 Immunofixation Note Comment (.) 07/30/19 19:57 Urine Color YELLOW 08/01/19 04:31 Urine Appearance CLEAR 08/01/19 04:31 Urine pH 5.0 (5.0-9.0) 08/01/19 04:31 Ur Specific Rodney 1.012 08/01/19 04:31 Urine Protein 30 mg/dL (NEGATIVE) H 08/01/19 04:31 Urine Glucose (UA) NEGATIVE mg/dL (NEGATIVE) 08/01/19 04:31 Urine Ketones TRACE mg/dL (NEGATIVE) H 08/01/19 04:31 Urine Blood LARGE (NEGATIVE) H 08/01/19 04:31 Urine Nitrite NEGATIVE (NEGATIVE) 08/01/19 04:31 Urine Nitrite (Reflex) NEGATIVE (NEGATIVE) 07/28/19 13:15 Urine Bilirubin NEGATIVE (NEGATIVE) 08/01/19 04:31 Urine Urobilinogen NEGATIVE mg/dL (<2.0) 08/01/19 04:31 Ur Leukocyte Esterase TRACE (NEGATIVE) H 08/01/19 04:31 Leukocyte Esterase Rfl NEGATIVE (NEGATIVE) 07/28/19 13:15 Urine WBC (Auto) 8 /HPF 08/01/19 04:31 Urine RBC (Auto) 68 /HPF 08/01/19 04:31 U Hyaline Cast (Auto) 8 /LPF 07/28/19 13:15 Urine Bacteria (Auto) TRACE /HPF 07/28/19 13:15 Urine WBC (Reflex) 9 /HPF 07/28/19 13:15 Squamous Epi Cells Auto <1 /HPF 08/01/19 04:31 Amorphous Sediment Auto TRACE /HPF 07/28/19 13:15 Urine Mucus (Auto) RARE /LPF 08/01/19 04:31 Urine Total Protein 38.3 mg/dL (Not Estab.) 07/30/19 19:20 Urine Albumin 51.8 % (.) 07/30/19 19:20 U Viknl-7-Vsszimms 2.4 % (.) 07/30/19 19:20 U Gddfz-7-Mmseftrn 8.3 % (.) 07/30/19 19:20 U Beta Globulin 19.5 % (.) 07/30/19 19:20 U Gamma Globulin 18.1 % (.) 07/30/19 19:20 U Random M-Matt (%) 6.8 % (Not Observ) H 07/30/19 19:20 Urine PEP Note Comment (.) 07/30/19 19:20 Urine Ascorbic Acid NEGATIVE (NEGATIVE) 08/01/19 04:31 Fluid Tube Number 3 08/02/19 11:40 CSF Volume 13.0 CC 08/02/19 11:40 CSF Appearance CLEAR 08/02/19 11:40 CSF Color COLORLESS 08/02/19 11:40 CSF WBC 3 /uL (0-5) 08/02/19 11:40 CSF RBC 133 /uL (0-10) 08/02/19 11:40 CSF Glucose 66 mg/dL (40-70) 08/02/19 11:40 CSF Total Protein 53 mg/dL (12-60) 08/02/19 11:40 Stool Occult Blood POSITIVE (NEGATIVE) 08/06/19 18:00 Albumin (KRYSTAL) 2.8 g/dL (2.9-4.4) L 07/30/19 19:57 Cryoprecipitate KRYSTAL Cancelled 07/29/19 08:44 Cryoglobulin 07/29/19 10:19 Cryoglobulin % Cancelled 07/29/19 08:44 c-ANCA Antibody <1:20 titer (Neg:<1:20) 07/29/19 08:44 Anti-Proteinase 3 Intrp <3.5 U/mL (0.0-3.5) 07/29/19 08:44 Atypical p-ANCA <1:20 titer (Neg:<1:20) 07/29/19 08:44 p-ANCA Antibody <1:20 titer (Neg:<1:20) 07/29/19 08:44 Myeloperoxidase Ab <9.0 U/mL (0.0-9.0) 07/29/19 08:44 Herpes Simplex Source CSF 08/02/19 11:40 HSV I DNA PCR Negative (Negative) 08/02/19 11:40 HSV II DNA PCR Negative (Negative) 08/02/19 11:40 Influenza A (Rapid) NEGATIVE (NEGATIVE) 08/03/19 14:05 Influenza B (Rapid) NEGATIVE (NEGATIVE) 08/03/19 14:05 Blood Type O POSITIVE 08/07/19 07:35 Blood Type Confirm O POSITIVE 08/07/19 07:39 Antibody Screen NEGATIVE 08/07/19 07:35 Crossmatch See Detail 08/07/19 07:35 07/28/19 07/28/19 07/29/19 13:35 17:30 03:06 Troponin I 0.050 0.052 Cancelled NT-Pro-B Natriuret Pep 07/30/19 07/30/19 07/30/19 03:28 08:50 09:40 Troponin I 0.079 Cancelled 0.048 NT-Pro-B Natriuret Pep 770 H Impressions: Abdomen/Pelvis CT 07/28/19 00:00 IMPRESSION: 3 mm stone distal left ureter. Mild hydronephrosis. Chest X-Ray 07/28/19 12:19 IMPRESSION: NO ACUTE RADIOGRAPHIC FINDING IN THE CHEST. Head CT 07/28/19 12:19 IMPRESSION: CHRONIC CHANGES OF ATROPHY AND MICROVASCULAR ISCHEMIA. NO ACUTE PROCESS. EVIDENCE OF ACUTE STROKE: NO. Chest X-Ray 07/30/19 00:00 IMPRESSION: No acute disease. Chest X-Ray 07/30/19 00:00 IMPRESSION: Right IJ line tip in the SVC. No pneumothorax. Head CT 07/30/19 00:00 IMPRESSION: CHRONIC CHANGES OF ATROPHY AND MICROVASCULAR ISCHEMIA. NO ACUTE PROCESS. NO ENHANCING LESIONS. EVIDENCE OF ACUTE STROKE: NO. Carotid Doppler Study 08/01/19 00:00 IMPRESSION: No hemodynamically significant stenosis on the left. Right side was not performed as described above. KUB X-Ray 08/01/19 00:00 IMPRESSION: NG tube placement. Guidance Fluoroscopy 08/02/19 00:00 IMPRESSION: Lumbar puncture under fluoroscopy. No immediate complication. Head CTA 08/02/19 00:00 IMPRESSION: NO CTA EVIDENCE OF STENOSIS OR ANEURYSM OF THE RESIGHINI OF EUCEDA. Lumbar Puncture 08/02/19 00:00 IMPRESSION: Lumbar puncture under fluoroscopy. No immediate complication. Neck CTA 08/02/19 00:00 IMPRESSION: Complex plaque in the right carotid bulb and proximal ICA with focal greater than 70% stenosis at the origin of the ICA best demonstrated on sagittal reconstructions. Chest X-Ray 08/03/19 08:51 IMPRESSION: NO ACUTE RADIOGRAPHIC FINDING IN THE CHEST. KUB X-Ray 08/04/19 00:00 IMPRESSION: Limited view of the abdomen demonstrates NG tube in place. The tip overlies the gastric fundus. Head CT 08/06/19 12:41 IMPRESSION: Chronic changes. No acute intracranial abnormality. EVIDENCE OF ACUTE STROKE: NO. Guidance Fluoroscopy 08/08/19 00:00 IMPRESSION: SUCCESSFUL PLACEMENT OF A 5 FR DUAL LUMEN 42 CM PICC IN THE LEFT BASILIC VEIN. Interventional Vascular Procedure 08/08/19 00:00 IMPRESSION: SUCCESSFUL PLACEMENT OF A 5 FR DUAL LUMEN 42 CM PICC IN THE LEFT BASILIC VEIN. PICC Line Insertion 08/08/19 00:00 IMPRESSION: SUCCESSFUL PLACEMENT OF A 5 FR DUAL LUMEN 42 CM PICC IN THE LEFT BASILIC VEIN. Chest X-Ray 08/10/19 12:28 IMPRESSION: NO ACUTE RADIOGRAPHIC FINDING IN THE CHEST. Head CT 08/11/19 13:05 IMPRESSION: CHRONIC CHANGES OF ATROPHY AND MICROVASCULAR ISCHEMIA. NO ACUTE PROCESS. EVIDENCE OF ACUTE STROKE: NO. Stroke Is this a Stroke Patient?: No Acute Heart Failure - Is this a Heart Failure Patient?: No
[2019-08-15] MEDS ORDERED: ATORVASTATIN CALCIUM 20 MG TABLET PO SCH (22:00)
== END 2019-08-15 15:30 | DRG 77 ==
LOC: ER 11:19 → EH 21:59 → OBSVTOIN 22:02 → ICU 23:26 → 3S 08-04 12:13
PROVIDERS: ADMIT Internal Medicine Critical Care Medicine; ATTEND Hospitalist
PROC: 00JU3ZZ Inspection of Spinal Canal, Percutaneous Approach (ICD-10-PCS; principal; 2019-07-28)
PROC: 02HV33Z Insertion of Infusion Device into Superior Vena Cava, Percutaneous Approach (ICD-10-PCS; 2019-07-30)
PROC: 00JU3ZZ Inspection of Spinal Canal, Percutaneous Approach (ICD-10-PCS; 2019-07-31)
PROC: 30233N1 Transfusion of Nonautologous Red Blood Cells into Peripheral Vein, Percutaneous Approach (ICD-10-PCS; 2019-08-07)
PROC: 02HV33Z Insertion of Infusion Device into Superior Vena Cava, Percutaneous Approach (ICD-10-PCS; 2019-08-08)
PROC: B518ZZA Fluoroscopy of Superior Vena Cava, Guidance (ICD-10-PCS; 2019-08-08)
PROC: B548ZZA Ultrasonography of Superior Vena Cava, Guidance (ICD-10-PCS; 2019-08-08)
PROC: 0DJ08ZZ Inspection of Upper Intestinal Tract, Via Natural or Artificial Opening Endoscopic (ICD-10-PCS; 2019-08-12)
DX: I67.4 Hypertensive encephalopathy (principal); G93.41 Metabolic encephalopathy; I63.231 Cerebral infarction due to unspecified occlusion or stenosis of right carotid arteries; N17.9 Acute kidney failure, unspecified; N13.2 Hydronephrosis with renal and ureteral calculous obstruction; I16.1 Hypertensive emergency; I48.19 Other persistent atrial fibrillation; Q62.11 Congenital occlusion of ureteropelvic junction; K92.2 Gastrointestinal hemorrhage, unspecified; R41.82 Altered mental status, unspecified; I12.9 Hypertensive chronic kidney disease with stage 1 through stage 4 chronic kidney disease, or unspecified chronic kidney disease; N18.9 Chronic kidney disease, unspecified; I25.10 Atherosclerotic heart disease of native coronary artery without angina pectoris; Q24.8 Other specified congenital malformations of heart; K57.90 Diverticulosis of intestine, part unspecified, without perforation or abscess without bleeding; K20.8 Other esophagitis; K44.9 Diaphragmatic hernia without obstruction or gangrene; I70.209 Unspecified atherosclerosis of native arteries of extremities, unspecified extremity; I70.0 Atherosclerosis of aorta; R51 Headache; K80.20 Calculus of gallbladder without cholecystitis without obstruction; R73.9 Hyperglycemia, unspecified; R29.810 Facial weakness; D72.829 Elevated white blood cell count, unspecified; N40.0 Benign prostatic hyperplasia without lower urinary tract symptoms; D75.1 Secondary polycythemia; E86.0 Dehydration; G89.29 Other chronic pain; G47.33 Obstructive sleep apnea (adult) (pediatric); Z95.5 Presence of coronary angioplasty implant and graft; Z79.02 Long term (current) use of antithrombotics/antiplatelets; Z75.1 Person awaiting admission to adequate facility elsewhere; Z86.73 Personal history of transient ischemic attack (TIA), and cerebral infarction without residual deficits
CPT/HCPCS: 36415; 36430; 36556; 36569; 36600; 43235; 62270; 70450; 70470; 70496; 70498; 71045; 74018; 74176; 76937; 77001; 77003; 80048; 80053; 81001; 81270; 82140; 82272; 82550; 82595; 82668; 82803; 82945; 82962; 83036; 83516; 83605; 83690; 83735; 83880; 84100; 84132; 84157; 84166; 84439; 84443; 84481; 84484; 85025; 85027; 85610; 85652; 85730; 85810; 86140; 86256; 86320; 86850; 86900; 86901; 86920; 87040; 87070; 87205; 87529; 87804; 89050; 93005; 93010; 93306; 93880; 94660; 95819; 96361; 96365; 96367; 96368; 96375; 99233; 99285; 99291; 99292; C9113; J0133; J0171; J0360; J0692; J0696; J1200; J1610; J1630; J1642; J1644; J1940; J2250; J2310; J2405; J3010; J3480; J3490; J7030; J7040; J7050; J7060; J7120; P9016